=== PATIENT | female | born 1960 | race African-American/Black ===

== ENCOUNTER 2017-09-14 19:36 | Emergency (ER) | payer BC ==
[2017-09-14] MEDS ORDERED: ASPIRIN 81 MG CHEWABLE TABLETS PO ONE (20:04)
--- NOTE | 2017-09-14 20:04 | PDOC ---
Rapid Medical Evaluation Time Seen by Provider: 09/14/17 19:56 Medical Evaluation: Allergies Allergy/AdvReac Type Severity Reaction Status Date / Time No Known Allergies Allergy Verified 01/07/15 07:01 09/14/17 19:56 I have performed a brief in-person evaluation of this patient. The patient presents with a chief complaint of: swelling to b/l feet& ankles, SOB x 1 week, hx of DM/HTN, went to urgent care for SOB earlier, told to come here. pcp nicholas Pertinent physical exam findings: dyspnea, b/l swollen ankles I have ordered the following: cardiac workup, ekg The patient will proceed to the ED for further evaluation. Discharge Disposition - Diagnosis SOB (shortness of breath) - Referrals - Patient Instructions - Post Discharge Activity
[2017-09-14 20:07] VITALS: BP 166/90; PULSE 81; TEMP 99.4; BMI 52.6
[2017-09-14 20:36] LABS: HEMATOCRIT 43.9 % (32.4-45.2); HEMOGLOBIN 14.2 GM/dL (10.7-15.3); LYMPH % 19.1 % (8-40); MCH 28.4 pg (25.7-33.7); MCHC 32.4 g/dl (32.0-36.0); MEAN CELL VOLUME 87.6 fl (80-96); MEAN PLT VOLUME 10.1 fl (7.5-11.1); NEUT % 68.9 % (42.8-82.8); PLATELET COUNT 213 K/MM3 (134-434); RBC 5.02 M/mm3 (3.60-5.2); WHITE BLOOD COUNT 9.9 K/mm3 (4.0-10.0)
[2017-09-14 21:13] LABS: ALBUMIN 3.5 g/dl (3.4-5.0); ANION GAP 7 (8-16); BILIRUBIN,TOTAL 0.6 mg/dL (0.2-1.0); BLOOD UREA NITROGEN 10 mg/dL (7-18); CALCIUM 9.6 mg/dL (8.5-10.1); CHLORIDE 97 mmol/L (98-107); CO2 35 mmol/L (21-32); CREATININE 0.9 mg/dL (0.55-1.02); GLUCOSE,RANDOM 125 mg/dL (74-106); MAGNESIUM 2.2 mg/dL (1.8-2.4); POTASSIUM 3.6 mmol/L (3.5-5.1); SGOT/AST 14 U/L (15-37); SGPT/ALT 30 U/L (12-78); SODIUM 139 mmol/L (136-145); TOT PROT 7.8 g/dl (6.4-8.2)
[2017-09-14 21:16] LABS: ALK PHOS 84 U/L (45-117); N-TERMINAL BNP 55.64 pg/ml (5-125)
--- NOTE | 2017-09-14 22:58 | PDOC ---
History of Present Illness - General History Source: Patient Exam Limitations: No Limitations - History of Present Illness Initial Comments: 09/14/17 23:10 The patient is a 57 year old female with a significant PMH of HTN and diabetes who presents to the emergency department with shortness of breath beginning approximately 2 weeks ago. The patient reports significant dyspnea on exertion and conversational dyspnea with associated chest pressure and tightness. She reports being seen at Urgent Care earlier today, who recommended she come to the ED. The patient reports compliance with her medications. The patient also notes bilateral lower extremity swelling recently. She denies sick contacts or recent travel. The patient notes gaining significant weight over the past 6 months, which she states may be contributing to her symptoms. The patient denies headache and dizziness. Denies fever, chills, nausea, vomit, diarrhea and constipation. Denies dysuria, frequency, urgency and hematuria. Allergies: NKA Past surgical history: Abdominal hernia repair. Social history: Occasional alcohol use. No reported cigarette or drug use. PCP: Dr. Jameson <Edwin Saucedo - Last Filed: 09/14/17 23:45> - General History Source: Patient <Hasmukh Bush - Last Filed: 09/14/17 23:50> - General Chief Complaint: Shortness of Breath Stated Complaint: SOB/ HIGH BP Time Seen by Provider: 09/14/17 19:56 Past History <Edwin Saucedo - Last Filed: 09/14/17 23:45> - Past Medical History Asthma: Yes COPD: No Diabetes: Yes HTN: Yes - Surgical History Abdominal Surgery: Yes (ABD HERNIA) - Immunization History Immunization Up to Date: Yes - Suicide/Smoking/Psychosocial Hx Smoking History: Never smoked Have you smoked in the past 12 months: No Information on smoking cessation initiated: No Hx Alcohol Use: No Drug/Substance Use Hx: No Substance Use Type: None Hx Substance Use Treatment: No <Hasmukh Bush - Last Filed: 09/14/17 23:50> - Past Medical History Allergies/Adverse Reactions: Allergies Allergy/AdvReac Type Severity Reaction Status Date / Time No Known Allergies Allergy Verified 09/14/17 20:00 Home Medications: Ambulatory Orders Chlorthalidone 50 mg PO DAILY 01/04/15 Metformin HCl [Metformin HCl ER] 500 mg PO BID 01/04/15 Verapamil HCl 180 mg PO BID 01/04/15 Oxycodone HCl/Acetaminophen [Percocet 5/325 -] 1 - 2 tab PO Q6H #20 tab Chlorthalidone 50 mg PO BID #30 tablet 09/14/17 Review of Systems - Review of Systems Able to Perform ROS?: Yes Comments:: 09/14/17 23:10 CONSTITUTIONAL: Absent: fever, chills, diaphoresis, generalized weakness, malaise, loss of appetite HEENT: Absent: rhinorrhea, nasal congestion, throat pain, throat swelling, difficulty swallowing, mouth swelling, ear pain, eye pain, visual Changes CARDIOVASCULAR: Absent: chest pain, syncope, palpitations, irregular heart rate, lightheadedness , peripheral edema RESPIRATORY: (+) Shortness of breath with associated chest pressure. (+) Conversational and exertional dyspnea. Absent: cough, orthopnea, wheezing, stridor, hemoptysis GASTROINTESTINAL: Absent: abdominal pain, abdominal distension, nausea, vomiting, diarrhea, constipation, melena, hematochezia GENITOURINARY: Absent: dysuria, frequency, urgency, hesitancy, hematuria, flank pain, genital pain MUSCULOSKELETAL: (+) Bilateral lower extremity swelling. Absent: myalgia, arthralgia, joint swelling SKIN: Absent: rash, itching, pallor HEMATOLOGIC/IMMUNOLOGIC: Absent: easy bleeding, easy bruising, lymphadenopathy, frequent infections ENDOCRINE: Absent: unexplained weight gain, unexplained weight loss, heat intolerance, cold intolerance NEUROLOGIC: Absent: headache, focal weakness or paresthesias, dizziness, unsteady gait, seizure, mental status changes, bladder or bowel incontinence PSYCHIATRIC: Absent: anxiety, depression, suicidal or homicidal ideation, hallucinations. <Edwin Saucedo - Last Filed: 09/14/17 23:45> *Physical Exam - Vital Signs Last Vital Signs Temp Pulse Resp BP Pulse Ox 99.4 F 81 18 166/90 97 09/14/17 20:00 09/14/17 20:00 09/14/17 20:00 09/14/17 20:00 09/14/17 20:00 - Physical Exam Comments: 09/14/17 23:10 GENERAL: (+) Morbidly obese. Well developed, well nourished. Awake and alert. No acute distress. HEENT: Normocephalic, atraumatic. PERRLA, EOMI. No conjunctival pallor. Sclera are non- icteric. Moist mucous membranes. Oropharynx is clear. NECK: Supple. Full ROM. No JVD. Carotid pulses 2+ and symmetric, without bruits. No thyromegaly. No lymphadenopathy. CARDIOVASCULAR: Regular rate and rhythm. No murmurs, rubs, or gallops. Distal pulses are 2+ and symmetric. PULMONARY: (+) Decreased breath sounds. No evidence of respiratory distress. Lungs clear to auscultation bilaterally. No wheezing, rales or rhonchi. ABDOMINAL: Soft. Non-tender. Non-distended. No rebound or guarding. No organomegaly. Normoactive bowel sounds. MUSCULOSKELETAL Normal range of motion at all joints. No bony deformities or tenderness. No CVA tenderness. EXTREMITIES: (+) Non pitting edema in lower extremities. No cyanosis. No clubbing. No edema. No calf tenderness. SKIN: Warm and dry. Normal capillary refill. No rashes. No jaundice. NEUROLOGICAL: Alert, awake, appropriate. Cranial nerves 2-12 intact. No deficits to light touch and temperature in face, upper extremities and lower extremities. No motor deficits in the in face, upper extremities and lower extremities. Normoreflexic in the upper and lower extremities. Normal speech. Toes are downgoing bilaterally. Gait is normal without ataxia. PSYCHIATRIC: Cooperative. Good eye contact. Appropriate mood and affect. <Edwin Saucedo - Last Filed: 09/14/17 23:45> - Vital Signs Last Vital Signs Temp Pulse Resp BP Pulse Ox 99.4 F 81 18 166/90 97 09/14/17 20:00 09/14/17 20:00 09/14/17 20:00 09/14/17 20:00 09/14/17 20:00 <Hasmukh Bush - Last Filed: 09/14/17 23:50> Heart Score/ECG Review #1 09/14/17 23:47 Vent rate 77 bpm Normal sinus rhythm Possible left atrial enlargement Prolonged QT Abnormal ECG When compared with ECh of 22-DEC-2014 20:34, Incomplete right bundle branch block is no longer present Minimal criteria for anterior infarct are no longer present <Edwin Saucedo - Last Filed: 09/14/17 23:45> ED Treatment Course - LABORATORY CBC & Chemistry Diagram: 09/14/17 20:20 09/14/17 20:20 - ADDITIONAL ORDERS Additional order review: Laboratory Results 09/14/17 20:20 Sodium 139 Potassium 3.6 Chloride 97 L Carbon Dioxide 35 H Anion Gap 7 L BUN 10 Creatinine 0.9 Creat Clearance w eGFR > 60 Random Glucose 125 H Calcium 9.6 Magnesium 2.2 Total Bilirubin 0.6 D AST 14 L ALT 30 Alkaline Phosphatase 84 Creatine Kinase 80 Troponin I < 0.02 B-Natriuretic Peptide 55.64 Total Protein 7.8 Albumin 3.5 09/14/17 20:20 RBC 5.02 D MCV 87.6 MCHC 32.4 RDW 16.0 H MPV 10.1 Neutrophils % 68.9 Lymphocytes % 19.1 D Monocytes % 8.0 Eosinophils % 3.0 Basophils % 1.0 D - Medications Given in the ED: ED Medications Discontinued Medications Generic Name Dose Route Start Last Admin Trade Name Freq PRN Reason Stop Dose Admin Aspirin 162 mg 09/14/17 20:04 09/14/17 20:33 Asa - PO 09/14/17 20:05 162 mg ONCE ONE Administration <Edwin Saucedo - Last Filed: 09/14/17 23:45> - LABORATORY CBC & Chemistry Diagram: 09/14/17 20:20 09/14/17 20:20 - ADDITIONAL ORDERS Additional order review: Laboratory Results 09/14/17 20:20 Sodium 139 Potassium 3.6 Chloride 97 L Carbon Dioxide 35 H Anion Gap 7 L BUN 10 Creatinine 0.9 Creat Clearance w eGFR > 60 Random Glucose 125 H Calcium 9.6 Magnesium 2.2 Total Bilirubin 0.6 D AST 14 L ALT 30 Alkaline Phosphatase 84 Creatine Kinase 80 Troponin I < 0.02 B-Natriuretic Peptide 55.64 Total Protein 7.8 Albumin 3.5 09/14/17 20:20 RBC 5.02 D MCV 87.6 MCHC 32.4 RDW 16.0 H MPV 10.1 Neutrophils % 68.9 Lymphocytes % 19.1 D Monocytes % 8.0 Eosinophils % 3.0 Basophils % 1.0 D - Medications Given in the ED: ED Medications Discontinued Medications Generic Name Dose Route Start Last Admin Trade Name Freq PRN Reason Stop Dose Admin Aspirin 162 mg 09/14/17 20:04 09/14/17 20:33 Asa - PO 09/14/17 20:05 162 mg ONCE ONE Administration <Hasmukh Bush - Last Filed: 09/14/17 23:50> Medical Decision Making - Medical Decision Making 09/14/17 23:25 Dr. Bush: The scribe's documentation has been prepared under my direction and personally reviewed by me in its entirery. I confirm that the note above accurately reflects all work, treatment, procedures, and medical decision making performed by me. Pt labs are stable. Pt advised to follow up with her pcp to discuss her medications. Pt to continue her usual medications until she sees her pcp. <Hasmukh Bush - Last Filed: 09/14/17 23:50> *DC/Admit/Observation/Transfer - Attestations Scribe Attestion: 09/14/17 23:10 Documentation prepared by Edwin Saucedo, acting as medical record specialist for Hasmukh Bush DO. <Edwin Saucedo - Last Filed: 09/14/17 23:45> - Discharge Dispostion Admit: No <Hasmukh Bush - Last Filed: 09/14/17 23:50> Diagnosis at time of Disposition: SOB (shortness of breath) High blood pressure Qualifiers: Hypertension type: unspecified Qualified Code(s): I10 - Essential (primary) hypertension - Discharge Dispostion Disposition: HOME Condition at time of disposition: Stable - Prescriptions Prescriptions: Chlorthalidone 50 mg PO BID #30 tablet - Referrals Referrals: Radha Guzman MD [Primary Care Provider] - Link Bryant MD [Staff Physician] - - Patient Instructions Printed Discharge Instructions: High Blood Pressure, DI for Shortness of Breath Additional Instructions: Please follow up with your doctor and review your medications with her. Avoid excess sodium. return for any problems. - Post Discharge Activity Forms/Work/School Notes: Back to Work
[2017-09-14] MEDS ORDERED: CHLORTHALIDONE 50 MG TABLET PO STA (23:21)
--- NOTE | 2017-09-15 08:03 | EKG ---
Test Reason : Blood Pressure : / mmHG Vent. Rate : 077 BPM Atrial Rate : 077 BPM P-R Int : 180 ms QRS Dur : 102 ms QT Int : 428 ms P-R-T Axes : 071 038 049 degrees QTc Int : 484 ms NORMAL SINUS RHYTHM POSSIBLE LEFT ATRIAL ENLARGEMENT PROLONGED QT ABNORMAL ECG WHEN COMPARED WITH ECG OF 22-DEC-2014 20:34, INCOMPLETE RIGHT BUNDLE BRANCH BLOCK IS NO LONGER PRESENT MINIMAL CRITERIA FOR ANTERIOR INFARCT ARE NO LONGER PRESENT Confirmed by JILLIAN FERRELL MD ([id number]) on 09/15/2017 8:03:29 AM Referred By: Confirmed By:JILLIAN FERRELL MD
== END 2017-09-15 00:53 | disposition home or self-care (01) ==
LOC: JER 19:36
DX: I10 Essential (primary) hypertension (principal); R06.09 Other forms of dyspnea; E11.9 Type 2 diabetes mellitus without complications; Z79.84 Long term (current) use of oral hypoglycemic drugs; J45.909 Unspecified asthma, uncomplicated
CPT/HCPCS: 36415; 71046-TC; 80053; 82550; 83735; 83880; 84484; 85025; 93005; 93010; 99282-25

== ENCOUNTER 2018-06-13 11:20 | Inpatient (IN) | payer BC ==
--- NOTE | 2018-06-13 12:21 | PDOC ---
History of Present Illness - General Chief Complaint: Respiratory Stated Complaint: ASTHMA Time Seen by Provider: 06/13/18 11:55 History Source: Patient Exam Limitations: No Limitations - History of Present Illness Initial Comments: 06/13/18 12:16 Pt is a 57yo f with PMH of asthma, HTN, DM presenting to ED with SOB upon exertion. Pt says she cannot take a few steps without feeling short of breath. She thinks it is the weather changes that are affecting her asthma. Pt has a nebulizer at home but has been unable to use it due to the "tubing being messed up" She ran out of her inhaler medication. Pt does not feel short of breath when she is at rest. She did admit to having a cold recently. Admits to headache. Denies chest pain, back pain, neck pain, abdominal pain, n/v/d. PCP: Zain PMH: see hpi Meds: ramipril, metformin PSH: Social: quit smoking many years ago Allergies: nkda Past History - Past Medical History Allergies/Adverse Reactions: Allergies Allergy/AdvReac Type Severity Reaction Status Date / Time No Known Allergies Allergy Verified 06/13/18 11:47 Home Medications: Ambulatory Orders Chlorthalidone 50 mg PO DAILY 01/04/15 Metformin HCl [Metformin HCl ER] 500 mg PO BID 01/04/15 Oxycodone HCl/Acetaminophen [Oxycodone-Acetaminophen 10-325] 1 each PO TID PRN MDD 3 06/13/18 Verapamil HCl [Verapamil ER] 180 mg PO BID 06/13/18 Asthma: Yes COPD: No Diabetes: Yes HTN: Yes - Surgical History Abdominal Surgery: Yes (ABD HERNIA) - Immunization History Immunization Up to Date: Yes - Suicide/Smoking/Psychosocial Hx Smoking History: Former smoker Have you smoked in the past 12 months: No Information on smoking cessation initiated: No Hx Alcohol Use: No Drug/Substance Use Hx: No Substance Use Type: None Hx Substance Use Treatment: No Review of Systems - Review of Systems Constitutional: No: Chills, Fever HEENTM: No: Recent change in vision, Double Vision Respiratory: Yes: SOB with Exertion, Wheezing. No: Cough, SOB at Rest, Productive cough Cardiac (ROS): No: Chest Pain, Lightheadedness, Palpitations, Syncope ABD/GI: No: Constipated, Diarrhea, Nausea, Vomiting : No: Symptoms Reported Musculoskeletal: No: Symptoms Reported Neurological: Yes: Headache. No: Numbness, Paresthesia, Tingling, Tremors *Physical Exam - Vital Signs Last Vital Signs Temp Pulse Resp BP Pulse Ox 99.7 F H 90 24 H 158/86 84 L 06/13/18 11:54 06/13/18 11:54 06/13/18 11:54 06/13/18 11:54 06/13/18 11:54 - Physical Exam General Appearance: Yes: Appropriately Dressed, Mild Distress, Obese HEENT: positive: EOMI, GISELLE, Pharynx Normal Neck: positive: Trachea midline, Supple. negative: Carotid bruit, Lymphadenopathy (R), Lymphadenopathy (L) Respiratory/Chest: positive: Decreased Breath Sounds (unable to properly auscultate due to body habitus) Cardiovascular: positive: Other (unable to properly auscultate due to body habitus) Vascular Pulses: Carotid (R): 2+, Carotid (L): 2+, Dorsalis-Pedis (R): 2+, Doralis-Pedis (L): 2+ Gastrointestinal/Abdominal: positive: Soft. negative: Guarding, Rebound, Tenderness Musculoskeletal: negative: CVA Tenderness Extremity: positive: Normal Capillary Refill. 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 Vitals: hypoxic on RA at 88%, tachypneic. PE: decreased breath and heart sounds due to body habitus ACS, PE, asthma exacerbation, chf, copd, pleural effusion Pt does not appear to be volume overloaded. Will order cbc, cmp, trop, vbg, ekg, cxr. Started pt on solumedrol and duoneb. 06/13/18 15:06 Pt feeling better. complaining of headache. Will give Tylenol. Pt saturates 88-92% RA. tachypneic in the low 20s. Will likely need admission CTA ordered to r/o PE. Negative for pe. Pt admitted for hypoxia. *DC/Admit/Observation/Transfer Diagnosis at time of Disposition: SOB (shortness of breath), Hypoxia - Discharge Dispostion Condition at time of disposition: Stable Decision to Admit order: Yes - Referrals - Patient Instructions - Post Discharge Activity
[2018-06-13] MEDS ORDERED: ALBUTEROL SO4 2.5/IPRATROPIUM 0.5 INH SOL 3 ML VIAL.NEB. NEB ONE ×2 (12:39→13:39)
[2018-06-13] MEDS ORDERED: methylPREDNISolone NA SUCC 125 MG/2 ML VIAL IVPB ONE (12:40)
[2018-06-13 12:48] LABS: BASO % 1.2 % (0-2.0); EOS % 1.6 % (0-4.5); HEMATOCRIT 41.4 % (32.4-45.2); LYMPH % 20.4 % (8-40); MCH 27.7 pg (25.7-33.7); MCHC 31.3 g/dl (32.0-36.0); MEAN CELL VOLUME 88.3 fl (80-96); MONO % 7.5 % (3.8-10.2); NEUT % 69.3 % (42.8-82.8); PLATELET COUNT 225 K/MM3 (134-434); RBC 4.69 M/mm3 (3.60-5.2); RDW 16.9 % (11.6-15.6); WHITE BLOOD COUNT 9.4 K/mm3 (4.0-10.0)
[2018-06-13] MEDS ORDERED: methylPREDNISolone NA SUCC 40 MG/1 ML VIAL ONE ×2 (12:52→17:54)
[2018-06-13 13:17] LABS: ALK PHOS 71 U/L (45-117); ANION GAP 5 MMOL/L (8-16); BILIRUBIN,TOTAL 0.5 mg/dL (0.2-1); BLOOD UREA NITROGEN 8 mg/dL (7-18); CALCIUM 8.6 mg/dL (8.5-10.1); CHLORIDE 98 mmol/L (98-107); CO2 36 mmol/L (21-32); CREATININE 0.6 mg/dL (0.55-1.3); GLUCOSE,RANDOM 125 mg/dL (74-106); POTASSIUM 4.1 mmol/L (3.5-5.1); SGOT/AST 12 U/L (15-37); SGPT/ALT 19 U/L (13-61); SODIUM 140 mmol/L (136-145); TOT PROT 6.6 g/dl (6.4-8.2)
[2018-06-13] MEDS ORDERED: methylPREDNISolone NA SUCC 40 MG/1 ML VIAL IVPUSH ONE (13:24)
[2018-06-13 13:27] LABS: VENOUS PH 7.4 (7.32-7.42); VENOUS PO2 47.6 mmHg (28-48)
[2018-06-13 13:28] LABS: VENOUS PC02 64.6 mmHg (38-52)
[2018-06-13] MEDS ORDERED: methylPREDNISolone NA SUCC 125 MG/2 ML VIAL ONE (13:33)
[2018-06-13] MEDS: ALBUTEROL SO4 2.5/IPRATROPIUM 0.5 INH SOL 3 ML VIAL.NEB. NEB SCH ×3 (13:45→14:01)
--- NOTE | 2018-06-13 14:14 | PDOC ---
Attending Attestation - Resident Resident Name: Ruma Durant - ED Attending Attestation I have performed the following: I have examined & evaluated the patient, The case was reviewed & discussed with the resident, I agree w/resident's findings & plan, Exceptions are as noted - HPI HPI: 06/13/18 14:05 The patient is a 57 year old female, with a past medical history of asthma, diabetes, and HTN, who presents to the emergency department with 7 days of SOB and dyspnea on exertion. She recently had a URI which has since resolved. Denies F/C currently. Patient describes her symptoms as similar to her usual asthma flares. She has not used her rescue inhaler or nebulizer for her symptoms because she ran out of her medications. She denies recent chest pain or palpitations. She denies recent fevers, chills, headache or dizziness. She denies recent nausea, vomit, diarrhea or constipation. She denies recent dysuria, frequency, urgency or hematuria. Allergies: NKDA Past surgical history: Abdominal hernia repair. Social history: Occasional alcohol. Nonsmoker. Denies recreational drug use. Primary Care Physician: Dr. Jameson - Physicial Exam PE: 06/13/18 14:06 GENERAL: Awake, alert, and fully oriented, in no acute distress. HEAD: No signs of trauma EYES: PERRLA, EOMI, sclera anicteric, conjunctiva clear ENT: Auricles normal inspection, hearing grossly normal, nares patent, oropharynx clear without exudates. Moist mucosa NECK: Nontender, no stepoffs, Normal ROM, supple, no lymphadenopathy, JVD, or masses LUNGS: + wheezing, faint breath sounds due to body habitus HEART: Regular rate and rhythm, normal S1 and S2, no murmurs, rubs or gallops ABDOMEN: Soft, nontender, normoactive bowel sounds. No guarding, no rebound. No masses EXTREMITIES: Normal range of motion, no edema. No clubbing or cyanosis. No cords, erythema, or tenderness NEUROLOGICAL: Cranial nerves II through XII intact. 5/5 strength and sensation in all extremities, Normal speech, normal gait, normal cerebellar function SKIN: Warm, Dry, normal turgor, no rashes or lesions noted. - Medical Decision Making 06/13/18 14:07 57 F with likely asthma flare. Temp 99.7, possible viral URI/flu. - Labs - CXR - Flu swab - Nebs, steroids - Reassess 06/13/18 15:37 CXR clear Pt reassessed after 4 back to back nebs, continues to feel SOB. Ambulatory O2 sat 88 after treatment Will continue nebs for asthma flare Will also r/o PE with CTA Pt admitted <Junior Celeste - Last Filed: 06/13/18 15:39> Attestations - Attestations 06/13/18 14:57 Documentation prepared by Vin Juarez, acting as medical reception for Junior Celeste MD. <Vin Juarez - Last Filed: 06/13/18 14:57>
[2018-06-13] MEDS ORDERED: ACETAMINOPHEN 500 MG TABLET (FP) PO ONE (15:06)
[2018-06-13] MEDS ORDERED: ACETAMINOPHEN 325 MG TABLET (FP) ONE (15:49)
[2018-06-13] MEDS ORDERED: ACETAMINOPHEN 325 MG TABLET (FP) PO PRN ×2 (16:06→22:29)
--- NOTE | 2018-06-13 16:21 | HP ---
CHIEF COMPLAINT: shortness of breath. PCP:Dr. Pittman HISTORY OF PRESENT ILLNESS: 57 yo F wth PMhx of asthma, HTN, and NIDDM presents for a 2 week history of worsening shortness of breath. She states that when the weather changed a few weeks ago she started with some mild shortness of breath. She has nebulizer at home but she says something is wrong with the tubing. She also endorses URI symptoms but non productive cough. She becomes short of breath with minimal exertions. She mentions that usually she only uses inhalers once a month. Never been hospitalized for this type of issue. Denies CP,KERNS, Abdominal pain, nausea , vomiting, fever or chills. ER course was notable for: (1)EKG-NSR, with no t or st wave abnormalities. (2)CXR- shows LLL opacity. (3)CTA- pending Recent Travel: no PAST MEDICAL HISTORY: HTN, NIDDM, Asthma PAST SURGICAL HISTORY: Cholecystectomy, hernia repair, , tonsilectomy Social History: Smoking:never Alcohol:rare Drugs: marijuana Family History: Mother and Father (DM2), brother in 50's No Known Allergies Allergy (Verified 06/13/18 11:47) HOME MEDICATIONS: Home Medications Medication Instructions Recorded Chlorthalidone 50 mg PO DAILY 01/04/15 Metformin HCl [Metformin HCl ER] 500 mg PO BID 01/04/15 Verapamil HCl 180 mg PO BID 01/04/15 REVIEW OF SYSTEMS CONSTITUTIONAL: Absent: fever, chills, diaphoresis, generalized weakness, malaise, loss of appetite, weight change HEENT: Absent: rhinorrhea, nasal congestion, throat pain, throat swelling, difficulty swallowing, mouth swelling, ear pain, eye pain, visual changes CARDIOVASCULAR: Absent: chest pain, syncope, palpitations, irregular heart rate, lightheadedness , peripheral edema RESPIRATORY: shortness of breath, dyspnea with exertion Absent: cough, , orthopnea, wheezing, stridor, hemoptysis GASTROINTESTINAL: Absent: abdominal pain, abdominal distension, nausea, vomiting, diarrhea, constipation, melena, hematochezia GENITOURINARY: Absent: dysuria, frequency, urgency, hesitancy, hematuria, flank pain, genital pain MUSCULOSKELETAL: Absent: myalgia, arthralgia, joint swelling, back pain, neck pain SKIN: Absent: rash, itching, pallor HEMATOLOGIC/IMMUNOLOGIC: Absent: easy bleeding, easy bruising, lymphadenopathy, frequent infections ENDOCRINE: Absent: unexplained weight gain, unexplained weight loss, heat intolerance, cold intolerance NEUROLOGIC: Absent: headache, focal weakness or paresthesias, dizziness, unsteady gait, seizure, mental status changes, bladder or bowel incontinence PSYCHIATRIC: Absent: anxiety, depression, suicidal or homicidal ideation, hallucinations. PHYSICAL EXAMINATION Vital Signs - 24 hr 06/13/18 06/13/18 06/13/18 11:54 12:46 13:56 Temperature 99.7 F H Pulse Rate 90 Pulse Rate [ 84 Apical] Respiratory 24 H 14 Rate Blood Pressure 158/86 Blood Pressure 132/69 [Right Arm] O2 Sat by Pulse 84 L 95 93 L Oximetry (%) GENERAL: AAOx3, mild distress. HEAD: NCAT EYES: PERRLA, EOMI, sclera anicteric, conjunctiva clear. No lid lag. EARS, NOSE, THROAT: Moist mucous membranes. NECK:Supple without lymphadenopathy, JVD, or masses. LUNGS: Poor air entry.diminished BS bilaterally > bases. No accessory muscle use. HEART: RRR,, normal S1 and S2 , no m/g/r ABDOMEN: Soft, obese, NTND, NABS, no guarding, no rebound, no masses. No hepatomegaly or splenomegaly. MUSCULOSKELETAL: No CVA tenderness. paraspinal tenderness UPPER EXTREMITIES: 2+ pulses, warm, well-perfused. No cyanosis. No clubbing. No peripheral edema. LOWER EXTREMITIES: 2+ pulses, warm, well-perfused. No calf tenderness. 1+ edema. NEUROLOGICAL: Cranial nerves II-XII intact. Normal speech.gait not observed. PSYCHIATRIC: Cooperative. Good eye contact. Appropriate mood and affect. SKIN: Warm, dry, normal turgor, no rashes or lesions noted Laboratory Results - last 24 hr 06/13/18 06/13/18 06/13/18 12:40 12:40 12:40 WBC 9.4 RBC 4.69 Hgb 13.0 Hct 41.4 MCV 88.3 MCH 27.7 MCHC 31.3 L RDW 16.9 H Plt Count 225 MPV 10.0 Absolute Neuts (auto) 6.5 Neutrophils % 69.3 Lymphocytes % 20.4 Monocytes % 7.5 Eosinophils % 1.6 Basophils % 1.2 Nucleated RBC % 0 VBG pH POC VBG pCO2 POC VBG pO2 Mixed VBG HCO3 Sodium 140 Potassium 4.1 Chloride 98 Carbon Dioxide 36 H Anion Gap 5 L BUN 8 Creatinine 0.6 Creat Clearance w eGFR > 60 Random Glucose 125 H Calcium 8.6 Total Bilirubin 0.5 AST 12 L ALT 19 Alkaline Phosphatase 71 Troponin I < 0.02 Total Protein 6.6 Albumin 3.0 L Serum , Qual Negative 06/13/18 13:10 WBC RBC Hgb Hct MCV MCH MCHC RDW Plt Count MPV Absolute Neuts (auto) Neutrophils % Lymphocytes % Monocytes % Eosinophils % Basophils % Nucleated RBC % VBG pH 7.40 POC VBG pCO2 64.6 H* POC VBG pO2 47.6 Mixed VBG HCO3 39.2 H Sodium Potassium Chloride Carbon Dioxide Anion Gap BUN Creatinine Creat Clearance w eGFR Random Glucose Calcium Total Bilirubin AST ALT Alkaline Phosphatase Troponin I Total Protein Albumin Serum , Qual ASSESSMENT/PLAN: 57 yo F with PMHx of asthma, NIDDM, and HTN presents with one week history of worsening SOB and placed on observation for acute hypoxia. Problem List - Problem (1) SOB (shortness of breath) Assessment/Plan: Most likely secondary to acute bronchitis. * CTA chest pending r/o PE * Albuterol INH QID * Solumedrol 40mg IV Q8H * peak flow measurements. * ABG in AM * Incentive spirometer. * supplemental O2 PRN maintain SpO2 >90% * Will give Azithromycin based on CXR finding. (2) HTN (hypertension) Assessment/Plan: Continue with home meds. * Chlorthalidone (Hygroton -) 50 mg PO DAILY * Verapamil HCl (Calan Sr -) 180 mg PO BID (3) Diabetes type 2, controlled Assessment/Plan: Metformin held while admitted to hospital. * ADA diet * BGM ACHS * ISS with novolog ACHS Visit type - Emergency Visit Emergency Visit: Yes ED Registration Date: 06/13/18 Care time: The patient presented to the Emergency Department on the above date and was hospitalized for further evaluation of their emergent condition. - New Patient This patient is new to me today: Yes Date on this admission: 06/13/18 - Critical Care Critical Care patient: No
--- NOTE | 2018-06-13 16:49 | PN ---
Teaching Attending Note Name of Resident: Max Erickson ATTENDING PHYSICIAN STATEMENT I saw and evaluated the patient. I reviewed the resident's note and discussed the case with the resident. I agree with the resident's findings and plan as documented with exceptions below. SUBJECTIVE: 57 yof with PMHx of Asthma since age of 31, mobid obesity, NIDDM, HTN, cannabis use (last 1 month ago), Chronic back pain with opioid dependence was in her USOH till about 3 weeks ago when had URI like illness, symptoms progressively improved. Has been having progressive shortness of breath with activity since then. Yesterday was on a bus, when felt worsening breathing, with ongoing episodes prompting her to come to the ED. s/p solumedrol and nebs in ED, Currently feels better. 12 point ROS done, positive for cough with clear sputum last 2 weeks, also leg swelling since yesterday. Uses 5 pillows at night, no recent increase Also notes issues with her nebulizer tubing for last 2 weeks,unable to use the same Reports had extensive testing with her PCP in 12/2017, with echo/stress test/ carotid duplex reportedly unremarkable. OBJECTIVE: Vital Signs Period Temp Pulse Resp BP Sys/Augustine Pulse Ox Last 24 Hr 99.7 F 84-90 14-24 132-158/69-86 84-95 Intake & Output 06/10/18 06/11/18 06/12/18 06/13/18 23:59 23:59 23:59 23:59 Weight 330 lb GENERAL: Awake, alert, and fully oriented, in no acute distress. HEAD: Normal with no signs of trauma. EYES: Pupils equal, round and reactive to light, extraocular movements intact, sclera anicteric, conjunctiva clear. No lid lag. EARS, NOSE, THROAT: Ears normal, nares patent, oropharynx clear without exudates. Moist mucous membranes. NECK: soft, supple, no JVD, exam limited by body habitus LUNGS: Breath sounds equal, clear to auscultation bilaterally. No wheezes, and no crackles. No accessory muscle use. Exam limited by body habitus HEART: S1S2 regular rate rhythm ABDOMEN: Soft, obese, NT, positive bowel sounds MUSCULOSKELETAL: Normal range of motion at all joints. No bony deformities or tenderness. No CVA tenderness. UPPER EXTREMITIES: 2+ pulses, warm, well-perfused. No cyanosis. No clubbing. No peripheral edema. LOWER EXTREMITIES: 2+ pulses, warm, well-perfused. No calf tenderness. trace pitting pedal edema symmetric NEUROLOGICAL: Facial symmetry, AAOX3, power 5/5, sensation intact and symmetric to light touch, non focal exam PSYCHIATRIC: Cooperative. Good eye contact. Appropriate mood and affect. SKIN: Warm, dry, normal turgor, no rashes or lesions noted, normal capillary refill. Home Medications Medication Instructions Recorded Chlorthalidone 50 mg PO DAILY 01/04/15 Metformin HCl [Metformin HCl ER] 500 mg PO BID 01/04/15 Oxycodone HCl/Acetaminophen 1 each PO TID PRN MDD 3 06/13/18 [Oxycodone-Acetaminophen 10-325] Verapamil HCl [Verapamil ER] 180 mg PO BID 06/13/18 Active Medications Acetaminophen (Tylenol -) 650 mg PO Q4H PRN PRN Reason: FEVER Albuterol Sulfate (Ventolin 0.083% Nebulizer Soln -) 1 amp NEB RQID [facility] Chlorthalidone (Hygroton -) 50 mg PO DAILY [facility] Heparin Sodium (Porcine) (Heparin -) 5,000 unit SQ BID [facility] Insulin Aspart (Novolog Vial Sliding Scale -) 1 vial SQ ACHS [facility]; Protocol Methylprednisolone Sodium Succinate (Solu-Medrol -) 40 mg IVPUSH Q8H-IV [facility] Verapamil HCl (Calan Sr -) 180 mg PO BID [facility] Laboratory Results - last 24 hr 06/13/18 06/13/18 06/13/18 12:40 12:40 12:40 WBC 9.4 RBC 4.69 Hgb 13.0 Hct 41.4 MCV 88.3 MCH 27.7 MCHC 31.3 L RDW 16.9 H Plt Count 225 MPV 10.0 Absolute Neuts (auto) 6.5 Neutrophils % 69.3 Lymphocytes % 20.4 Monocytes % 7.5 Eosinophils % 1.6 Basophils % 1.2 Nucleated RBC % 0 VBG pH POC VBG pCO2 POC VBG pO2 Mixed VBG HCO3 Sodium 140 Potassium 4.1 Chloride 98 Carbon Dioxide 36 H Anion Gap 5 L BUN 8 Creatinine 0.6 Creat Clearance w eGFR > 60 Random Glucose 125 H Calcium 8.6 Total Bilirubin 0.5 AST 12 L ALT 19 Alkaline Phosphatase 71 Troponin I < 0.02 Total Protein 6.6 Albumin 3.0 L Serum , Qual Negative 06/13/18 13:10 WBC RBC Hgb Hct MCV MCH MCHC RDW Plt Count MPV Absolute Neuts (auto) Neutrophils % Lymphocytes % Monocytes % Eosinophils % Basophils % Nucleated RBC % VBG pH 7.40 POC VBG pCO2 64.6 H* POC VBG pO2 47.6 Mixed VBG HCO3 39.2 H Sodium Potassium Chloride Carbon Dioxide Anion Gap BUN Creatinine Creat Clearance w eGFR Random Glucose Calcium Total Bilirubin AST ALT Alkaline Phosphatase Troponin I Total Protein Albumin Serum , Qual CXR - markedly limited exam due to body habitus, Left costophrenic angle blunted EKG - NSR, right axis deviation ASSESSMENT AND PLAN: 57 yof with PMhx of asthma, morbid obesity, HTN, NIDDM, chronic back pain with opioid dependence, admitted with dyspnea. -Dyspnea, suspect Acute bronchitis/Asthma exac in the setting of recent URI, r/ o PNA/PE (low suspicion), unlikely CHF -NIDDM -HTN -Morbid obesity -Suspect underlying MATILDA -Chronic back pain with opioid dependence Plan: Solumedrol 40 mg IV q8h, standing and prn nebs. Azithromycin. CTA chest. Hold off abx pending imaging Reports recent cardiac w/u including stress test/echo in 12/2017 with Hold metformin, ISS, diabetic diet. Continue verapamil/chlorthalidone. Home percocet (dose confirmed with pharmacy) Drug screen DVTPPX lovenox Dispo pending above imaging and clinical improvement Plan discussed with patient in detail, all questions answered. Total admit time 55 min.
[2018-06-13] MEDS ORDERED: INSULIN (NOVOLOG) ASPART 100 UNITS/ML 10ML VIAL ONE (16:54)
[2018-06-13] MEDS: INSULIN SLIDING SCALE (NOVOLOG) 1 VIAL SQ SCH ×2 (16:56→22:37)
[2018-06-13] MEDS ORDERED: PATIENT'S OWN MEDICATION (NON-FORMULARY) (Oxycodone Hcl/Acetaminophen [Oxycodone-Acetamino PO PRN ×2 (17:51→22:17)
[2018-06-13] MEDS ORDERED: AZITHROMYCIN IVPB 500 MG/250 ML BAG IVPB ONE (17:56)
[2018-06-13] MEDS: methylPREDNISolone NA SUCC 40 MG/1 ML VIAL IVPUSH SCH (18:11)
[2018-06-13] MEDS: AZITHROMYCIN IVPB 500 MG/250 ML BAG IVPB SCH (18:12)
[2018-06-13] MEDS: ALBUTEROL SO4 0.083% IH SOL 2.5 MG/3 ML VIAL.NEB. NEB SCH (20:50)
--- NOTE | 2018-06-13 21:20 | EKG ---
Test Reason : Blood Pressure : / mmHG Vent. Rate : 082 BPM Atrial Rate : 082 BPM P-R Int : 184 ms QRS Dur : 082 ms QT Int : 380 ms P-R-T Axes : 066 092 054 degrees QTc Int : 443 ms NORMAL SINUS RHYTHM BORDERLINE ECG WHEN COMPARED WITH ECG OF 14-SEP-2017 20:12, NO SIGNIFICANT CHANGE WAS FOUND Confirmed by CHRISTIANO SMITH MD ([id number]) on 06/13/2018 9:20:22 PM Referred By: Confirmed By:CHRISTIANO SMITH MD
[2018-06-13] MEDS ORDERED: HEPARIN NA (PORCINE) 5,000 UNITS/ML 1ML VIAL SQ SCH (22:00)
[2018-06-13] MEDS: VERAPAMIL HCL 180 MG E.R. TABLET (FP) PO SCH (22:37)
[2018-06-13] MEDS: oxyCODONE HCL 5 MG TABLET PO PRN (22:37)
[2018-06-14] MEDS: methylPREDNISolone NA SUCC 40 MG/1 ML VIAL IVPUSH SCH ×3 (04:11→17:36)
[2018-06-14] MEDS: INSULIN SLIDING SCALE (NOVOLOG) 1 VIAL SQ SCH ×4 (06:21→22:02)
[2018-06-14 06:39] LABS: ARTERIAL BLD GAS O2 SATURATION 89.4 % (90-98.9); ARTERIAL BLOOD GAS BASE EXCESS 9.3 meq/l (-2-2); ARTERIAL BLOOD GAS PCO2 57.6 mmHg (35-45); ARTERIAL BLOOD GAS PO2 57.6 mmHg (80-100); ARTERIAL BLOOD GAS pH 7.41 (7.35-7.45)
[2018-06-14 06:47] LABS: ALLENS TEST POSITIVE
[2018-06-14 07:21] LABS: BASO % 0.2 % (0-2.0); HEMATOCRIT 42.6 % (32.4-45.2); HEMOGLOBIN 12.9 GM/dL (10.7-15.3); LYMPH % 7.4 % (8-40); MCH 26.7 pg (25.7-33.7); MCHC 30.2 g/dl (32.0-36.0); MEAN CELL VOLUME 88.2 fl (80-96); MONO % 2.6 % (3.8-10.2); NEUT % 89.8 % (42.8-82.8); PLATELET COUNT 230 K/MM3 (134-434); RBC 4.82 M/mm3 (3.60-5.2); RDW 17.2 % (11.6-15.6)
[2018-06-14] MEDS: ALBUTEROL SO4 0.083% IH SOL 2.5 MG/3 ML VIAL.NEB. NEB SCH ×2 (08:07→11:31)
[2018-06-14 08:26] LABS: ALK PHOS 73 U/L (45-117); ANION GAP 5 MMOL/L (8-16); BILIRUBIN,TOTAL 0.5 mg/dL (0.2-1); BLOOD UREA NITROGEN 12 mg/dL (7-18); CALCIUM 9.3 mg/dL (8.5-10.1); CHLORIDE 96 mmol/L (98-107); CO2 36 mmol/L (21-32); CREATININE 0.8 mg/dL (0.55-1.3); GLUCOSE,RANDOM 193 mg/dL (74-106); MAGNESIUM 2.5 mg/dL (1.8-2.4); PHOSPHOROUS 2.8 mg/dL (2.5-4.9); POTASSIUM 4.3 mmol/L (3.5-5.1); SGOT/AST 11 U/L (15-37); SGPT/ALT 18 U/L (13-61); SODIUM 138 mmol/L (136-145); TOT PROT 6.8 g/dl (6.4-8.2)
[2018-06-14] MEDS: ENOXAPARIN NA (PORCINE) 40 MG/0.4 ML DISP.SYRIN SQ SCH (09:19)
[2018-06-14] MEDS: AZITHROMYCIN IVPB 500 MG/250 ML BAG IVPB SCH (09:23)
[2018-06-14] MEDS: VERAPAMIL HCL 180 MG E.R. TABLET (FP) PO SCH ×2 (09:34→22:02)
[2018-06-14] MEDS: CHLORTHALIDONE 25 MG TABLET PO SCH (09:43)
[2018-06-14] MEDS ORDERED: CHLORTHALIDONE 50 MG TABLET PO SCH (10:00)
[2018-06-14] MEDS ORDERED: INSULIN (NOVOLOG) ASPART 100 UNITS/ML 10ML VIAL ONE (11:17)
--- NOTE | 2018-06-14 13:52 | PN ---
Teaching Attending Note Name of Resident: Margarito Rocha ATTENDING PHYSICIAN STATEMENT I saw and evaluated the patient. I reviewed the resident's note and discussed the case with the resident. I agree with the resident's findings and plan as documented with exceptions below. SUBJECTIVE: Patient seen and examined, still dyspneic with minimal activity, feels a bit worse today than yesterday. OBJECTIVE: Vital Signs Period Temp Pulse Resp BP Sys/Augustine Pulse Ox Last 24 Hr 97.8 F-98.6 F 71-98 14-20 125-160/69-97 93-97 Intake & Output 06/11/18 06/12/18 06/13/18 06/14/18 23:59 23:59 23:59 23:59 Intake Total 400 200 Balance 400 200 Weight 332 lb 6 oz General: sitting in bed, mild use of accessory muscles of respiration Chest: positive air entry, no rales or wheezing appreciated, exam limited by body habitus Abdomen:soft, obese, NT Extremities: trace pitting pedal edema Home Medications Medication Instructions Recorded Chlorthalidone 50 mg PO DAILY 01/04/15 Metformin HCl [Metformin HCl ER] 500 mg PO BID 01/04/15 Oxycodone HCl/Acetaminophen 1 each PO TID PRN MDD 3 06/13/18 [Oxycodone-Acetaminophen 10-325] Verapamil HCl [Verapamil ER] 180 mg PO BID 06/13/18 Active Medications Acetaminophen (Tylenol -) 650 mg PO Q4H PRN PRN Reason: FEVER Acetaminophen (Tylenol -) 325 mg PO Q8H PRN PRN Reason: PAIN LEVEL 6-10 Albuterol Sulfate (Ventolin 0.083% Nebulizer Soln -) 1 amp NEB RQID [facility] Last Admin: 06/14/18 11:31 Dose: 1 amp Chlorthalidone (Hygroton -) 50 mg PO DAILY [facility] Last Admin: 06/14/18 09:43 Dose: 50 mg Enoxaparin Sodium (Lovenox -) 40 mg SQ DAILY [facility] Last Admin: 06/14/18 09:19 Dose: 40 mg Azithromycin (Zithromax 500mg Ivpb (Pre-Docked)) 500 mg in 250 mls @ 250 mls/ hr IVPB DAILY [facility] Last Admin: 06/14/18 09:23 Dose: 250 mls/hr Insulin Aspart (Novolog Vial Sliding Scale -) 1 vial SQ ACHS [facility]; Protocol Last Admin: 06/14/18 11:19 Dose: 10 units Methylprednisolone Sodium Succinate (Solu-Medrol -) 40 mg IVPUSH Q8H [facility] Oxycodone HCl (Roxicodone -) 10 mg PO Q8H PRN PRN Reason: PAIN LEVEL 6-10 Last Admin: 06/13/18 22:37 Dose: 10 mg Verapamil HCl (Calan Sr -) 180 mg PO BID [facility] Last Admin: 06/14/18 09:34 Dose: 180 mg Laboratory Results - last 24 hr 06/13/18 06/13/18 06/14/18 16:52 22:35 06:00 WBC RBC Hgb Hct MCV MCH MCHC RDW Plt Count MPV Absolute Neuts (auto) Neutrophils % Lymphocytes % Monocytes % Eosinophils % Basophils % Nucleated RBC % Anticoagulation Therapy No Result Required. Puncture Site Right radial ABG pH 7.41 ABG pCO2 at Pt Temp 57.6 H ABG pO2 at Pt Temp 57.6 L ABG HCO3 35.9 H ABG O2 Sat (Measured) 89.4 L ABG O2 Content 18.0 ABG Base Excess 9.3 H Roberto Test Positive O2 Delivery Device Room air Oxygen Flow Rate No Vent Mode No Result Required. Vent Rate No Result Required. Mechanical Rate No Result Required. Pressure Support Vent No Result Required. Sodium Potassium Chloride Carbon Dioxide Anion Gap BUN Creatinine Creat Clearance w eGFR POC Glucometer [phone] Random Glucose Calcium Phosphorus Magnesium Total Bilirubin AST ALT Alkaline Phosphatase Total Protein Albumin 06/14/18 06/14/18 06/14/18 06:20 06:30 06:30 WBC 15.0 H RBC 4.82 Hgb 12.9 Hct 42.6 MCV 88.2 MCH 26.7 MCHC 30.2 L RDW 17.2 H Plt Count 230 MPV 11.0 Absolute Neuts (auto) 13.5 H Neutrophils % 89.8 H D Lymphocytes % 7.4 L D Monocytes % 2.6 L Eosinophils % 0.0 D Basophils % 0.2 Nucleated RBC % 0 Anticoagulation Therapy Puncture Site ABG pH ABG pCO2 at Pt Temp ABG pO2 at Pt Temp ABG HCO3 ABG O2 Sat (Measured) ABG O2 Content ABG Base Excess Roberto Test O2 Delivery Device Oxygen Flow Rate Vent Mode Vent Rate Mechanical Rate Pressure Support Vent Sodium 138 Potassium 4.3 Chloride 96 L Carbon Dioxide 36 H Anion Gap 5 L BUN 12 Creatinine 0.8 Creat Clearance w eGFR > 60 POC Glucometer 190 Random Glucose 193 H Calcium 9.3 Phosphorus 2.8 Magnesium 2.5 H Total Bilirubin 0.5 AST 11 L ALT 18 Alkaline Phosphatase 73 Total Protein 6.8 Albumin 3.0 L 06/14/18 11:14 WBC RBC Hgb Hct MCV MCH MCHC RDW Plt Count MPV Absolute Neuts (auto) Neutrophils % Lymphocytes % Monocytes % Eosinophils % Basophils % Nucleated RBC % Anticoagulation Therapy Puncture Site ABG pH ABG pCO2 at Pt Temp ABG pO2 at Pt Temp ABG HCO3 ABG O2 Sat (Measured) ABG O2 Content ABG Base Excess Roberto Test O2 Delivery Device Oxygen Flow Rate Vent Mode Vent Rate Mechanical Rate Pressure Support Vent Sodium Potassium Chloride Carbon Dioxide Anion Gap BUN Creatinine Creat Clearance w eGFR POC Glucometer 397 Random Glucose Calcium Phosphorus Magnesium Total Bilirubin AST ALT Alkaline Phosphatase Total Protein Albumin Microbiology 06/13/18 13:11 Nasopharyngeal Swab Influenza Types A,B Antigen - Final 06/13/18 13:11 Nasopharyngeal Swab - Final ASSESSMENT AND PLAN: ASSESSMENT AND PLAN: 57 yof with PMhx of asthma, morbid obesity, HTN, NIDDM, chronic back pain with opioid dependence, admitted with dyspnea. -Acute asthma exacertion/Bronchitis in the setting of recent URI -Acute hypoxic respiratory insufficiency -Hyperglycemia, NIDDM -HTN -Morbid obesity -Suspected underlying MATILDA/OHS -Chronic back pain with opioid dependence Plan: Still dyspnea, decreased air entry. Significant hypoxia with activity, ?acute on chronic. Continue IV solumedrol. Change to Duonebs standing and prn CT PE noted. Azithromycin day 2 Pulmonary consult. Check A1c, hold metformin. ISS/diabetic diet for now, additional agents based on blood sugar readings Continue verapamil/chlorthalidon Home oxycodone, dose confirmed in [employer] registry and with pharmacy DVTPPX lovenox check Drug screen Dispo needs inpatient monitoring given worsening respiratory status, ongoing hypoxia, Need for IV steroids and treatment. Plan discussed with patient in detail, all questions answered.
--- NOTE | 2018-06-14 14:59 | PN ---
Physical Exam: SUBJECTIVE: Patient seen and examined. No acute events overnight. Pt. endorses improved breathing. Pt. states that she had a sick contact with her 10 yr. 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 Pt. denies using home O2. OBJECTIVE: Vital Signs Period Temp Pulse Resp BP Sys/[place] Pulse Ox Last 24 Hr 97.8 F-98.9 F 71-98 18-20 123-160/80-97 93-97 GENERAL: The patient is awake, alert, and fully oriented, in no acute distress. NECK: Trachea midline, full range of motion, supple. LUNGS: Limited exam-2/2 obese body habitus- decreased breath sounds, no wheezing , no crackles HEART: Limited exam- regular rate and rhythm, S1, S2 without murmur ABDOMEN: Soft, nontender, nondistended, normoactive bowel sounds, no guarding, no rebound EXTREMITIES: 2+ dorsal pedal pulses, warm, well-perfused, no calf tenderness, 1 + edema. NEUROLOGICAL: Normal speech, gait not observed. PSYCH: Normal mood, normal affect. SKIN: Warm, dry, normal turgor Laboratory Results - last 24 hr 06/13/18 06/13/18 06/14/18 16:52 22:35 06:00 WBC RBC Hgb Hct MCV MCH MCHC RDW Plt Count MPV Absolute Neuts (auto) Neutrophils % Lymphocytes % Monocytes % Eosinophils % Basophils % Nucleated RBC % Anticoagulation Therapy No Result Required. Puncture Site Right radial ABG pH 7.41 ABG pCO2 at Pt Temp 57.6 H ABG pO2 at Pt Temp 57.6 L ABG HCO3 35.9 H ABG O2 Sat (Measured) 89.4 L ABG O2 Content 18.0 ABG Base Excess 9.3 H Roberto Test Positive O2 Delivery Device Room air Oxygen Flow Rate No Vent Mode No Result Required. Vent Rate No Result Required. Mechanical Rate No Result Required. Pressure Support Vent No Result Required. Sodium Potassium Chloride Carbon Dioxide Anion Gap BUN Creatinine Creat Clearance w eGFR POC Glucometer 212.65857 300 Random Glucose Calcium Phosphorus Magnesium Total Bilirubin AST ALT Alkaline Phosphatase Total Protein Albumin 06/14/18 06/14/18 06/14/18 06:20 06:30 06:30 WBC 15.0 H RBC 4.82 Hgb 12.9 Hct 42.6 MCV 88.2 MCH 26.7 MCHC 30.2 L RDW 17.2 H Plt Count 230 MPV 11.0 Absolute Neuts (auto) 13.5 H Neutrophils % 89.8 H D Lymphocytes % 7.4 L D Monocytes % 2.6 L Eosinophils % 0.0 D Basophils % 0.2 Nucleated RBC % 0 Anticoagulation Therapy Puncture Site ABG pH ABG pCO2 at Pt Temp ABG pO2 at Pt Temp ABG HCO3 ABG O2 Sat (Measured) ABG O2 Content ABG Base Excess Roberto Test O2 Delivery Device Oxygen Flow Rate Vent Mode Vent Rate Mechanical Rate Pressure Support Vent Sodium 138 Potassium 4.3 Chloride 96 L Carbon Dioxide 36 H Anion Gap 5 L BUN 12 Creatinine 0.8 Creat Clearance w eGFR > 60 POC Glucometer 190 Random Glucose 193 H Calcium 9.3 Phosphorus 2.8 Magnesium 2.5 H Total Bilirubin 0.5 AST 11 L ALT 18 Alkaline Phosphatase 73 Total Protein 6.8 Albumin 3.0 L 06/14/18 11:14 WBC RBC Hgb Hct MCV MCH MCHC RDW Plt Count MPV Absolute Neuts (auto) Neutrophils % Lymphocytes % Monocytes % Eosinophils % Basophils % Nucleated RBC % Anticoagulation Therapy Puncture Site ABG pH ABG pCO2 at Pt Temp ABG pO2 at Pt Temp ABG HCO3 ABG O2 Sat (Measured) ABG O2 Content ABG Base Excess Roberto Test O2 Delivery Device Oxygen Flow Rate Vent Mode Vent Rate Mechanical Rate Pressure Support Vent Sodium Potassium Chloride Carbon Dioxide Anion Gap BUN Creatinine Creat Clearance w eGFR POC Glucometer 397 Random Glucose Calcium Phosphorus Magnesium Total Bilirubin AST ALT Alkaline Phosphatase Total Protein Albumin Active Medications Current Medications Acetaminophen (Tylenol -) 650 mg PO Q4H PRN PRN Reason: FEVER Acetaminophen (Tylenol -) 325 mg PO Q8H PRN PRN Reason: PAIN LEVEL 6-10 Albuterol Sulfate (Ventolin 0.083% Nebulizer Soln -) 1 amp NEB Q4H PRN PRN Reason: SHORT OF BREATH/WHEEZING Last Admin: 06/14/18 15:32 Dose: 1 amp Albuterol/Ipratropium (Duoneb -) 1 amp NEB RQID [facility] Last Admin: 06/14/18 16:00 Dose: Not Given Chlorthalidone (Hygroton -) 50 mg PO DAILY [facility] Last Admin: 06/14/18 09:43 Dose: 50 mg Enoxaparin Sodium (Lovenox -) 40 mg SQ DAILY [facility] Last Admin: 06/14/18 09:19 Dose: 40 mg Azithromycin (Zithromax 500mg Ivpb (Pre-Docked)) 500 mg in 250 mls @ 250 mls/ hr IVPB DAILY [facility] Last Admin: 06/14/18 09:23 Dose: 250 mls/hr Insulin Aspart (Novolog Vial Sliding Scale -) 1 vial SQ ACHS [facility]; Protocol Last Admin: 06/14/18 16:46 Dose: 10 units Methylprednisolone Sodium Succinate (Solu-Medrol -) 40 mg IVPUSH Q8H-IV [facility] Last Admin: 06/14/18 17:36 Dose: 40 mg Oxycodone HCl (Roxicodone -) 10 mg PO Q8H PRN PRN Reason: PAIN LEVEL 6-10 Last Admin: 06/13/18 22:37 Dose: 10 mg Verapamil HCl (Calan Sr -) 180 mg PO BID [facility] Last Admin: 06/14/18 09:34 Dose: 180 mg Home Medications Medication Instructions Recorded Chlorthalidone 50 mg PO DAILY 01/04/15 Metformin HCl [Metformin HCl ER] 500 mg PO BID 01/04/15 Oxycodone HCl/Acetaminophen 1 each PO Q8H PRN MDD 3 06/13/18 [Oxycodone-Acetaminophen 10-325] Verapamil HCl [Verapamil ER] 180 mg PO BID 06/13/18 Albuterol Sulfate [Proair 1 puff NEB Q6H 06/14/18 [facility]] ASSESSMENT/PLAN: A 57 y.o. F w/ PMHx. of Asthma(since 31), [place], NIDDM, HTN, Marijuana use, and chronic back pain (chronic opioid use) presents with progressively worsening shortness of breath for the last 3 weeks. #Pulmonology -Asthma c/w Solumedrol 40mg Q8H c/w Duonebs RTID and Q4H PRN c/w Azithromycin 500mg CTA Chest- limited study, shows severe dextroscoliosis, no gross PE in pulmonary artery or proximal branches, mild bibasal atelectatic changes w/o acute lung disease Pt. failed Pre and Post, desaturated to 83% after 6 minutes walking on flat service #Endocrine -NIDDM Hold Metformin ISS ACHS BGM ACHS f/u HgbA1c #Cardiology -HTN c/w Verapamil 180mg BID c/w Chlorthalidone 50mg #F/E/N -no IVF, encourage PO intake -monitor electrolytes and replete as needed -Diabetic Diet #DVT Ppx. c/w Lovenox 40mg Visit type - Emergency Visit Emergency Visit: No - New Patient This patient is new to me today: Yes Date on this admission: 06/14/18 - Critical Care Critical Care patient: No - Discharge Referral Referred to [facility] Med P.C.: No
--- NOTE | 2018-06-14 15:40 | PN ---
Progress Note (short form) - Note Progress Note: PULMONARY CONSULTATION DICTATED 06/14/18 IMP ACUTE ON CHRONIC HYPOXEMIC/HYPERCAPNEIC RESPIRATORY FAILURE ASTHMA EXACERBATION SEVERE KYPHOSCOLIOSIS LIKELY OBESITY HYPOVENTILATION SYNDROME H/O MATILDA DM HTN PLAN INHALED BRONCHODILATORS O2 SHORT COURSE OF MEDROL SLEEP SCREEN CHECK O2 SAT AT REST AND EXERCISE PRIOR TO DISCHARGE TO DETERMINE IF PT IS A CANDIDATE FOR HOME O2 DVT PROPHYLAXIS PFTS OUTPATIENT DIETARY EVALUATION FOR WT REDUCTION DR CHAPMAN Problem List - Problems (1) Acute on chronic respiratory failure with hypoxia and hypercapnia Code(s): J96.21 - ACUTE AND CHRONIC RESPIRATORY FAILURE WITH HYPOXIA; J96.22 - ACUTE AND CHRONIC RESPIRATORY FAILURE WITH HYPERCAPNIA (2) Diabetes type 2, controlled Code(s): E11.9 - TYPE 2 DIABETES MELLITUS WITHOUT COMPLICATIONS Qualifiers: Diabetes mellitus long-term insulin use: without terminal makeup operator use Diabetes mellitus complication status: without complication Qualified Code(s): E11.9 - Type 2 diabetes mellitus without complications (3) HTN (hypertension) Code(s): I10 - ESSENTIAL (PRIMARY) HYPERTENSION Qualifiers: Hypertension type: essential hypertension Qualified Code(s): I10 - Essential (primary) hypertension (4) Hypoxia Code(s): R09.02 - HYPOXEMIA (5) SOB (shortness of breath) Code(s): R06.02 - SHORTNESS OF BREATH (6) Sleep apnea Code(s): G47.30 - SLEEP APNEA, UNSPECIFIED (7) Morbid obesity Code(s): E66.01 - MORBID (SEVERE) OBESITY DUE TO EXCESS CALORIES (8) Kyphoscoliosis Code(s): M41.9 - SCOLIOSIS, UNSPECIFIED (9) Obesity hypoventilation syndrome Code(s): E66.2 - MORBID (SEVERE) OBESITY WITH ALVEOLAR HYPOVENTILATION
[2018-06-14] MEDS ORDERED: ALBUTEROL SO4 0.083% IH SOL 2.5 MG/3 ML VIAL.NEB. NEB PRN (15:45)
[2018-06-14] MEDS: ALBUTEROL SO4 2.5/IPRATROPIUM 0.5 INH SOL 3 ML VIAL.NEB. NEB SCH ×2 (16:00→20:56)
[2018-06-14 16:28] LABS: COCAINE, UR NEGATIVE ng/ml (CUTOFF=300); METHADONE, UR NEGATIVE ng/ml (CUTOFF=300); OPIATES, URI NEGATIVE ng/ml (CUTOFF=300); PHENCYCLIDINE,URINE NEGATIVE ng/ml (CUTOFF=25); URINE BARBITURATES NEGATIVE ng/ml (CUTOFF=200); URINE BENZODIAZEPINES NEGATIVE ng/ml (CUTOFF=200)
[2018-06-14 16:29] LABS: URINE AMPHETAMINES NEGATIVE ng/ml (CUTOFF=500)
--- NOTE | 2018-06-14 16:38 | CONS ---
DATE OF CONSULTATION: 06/14/2018 REFERRING PHYSICIAN: Hilary Saha MD The patient is a 57-year-old black female with a past medical history of asthma, morbid obesity, obstructive sleep apnea, has not been using BiPAP in years or CPAP in years, hypertension, history of tjp-oydkejr-nfrujmtiw diabetes mellitus, severe kyphoscoliosis, admitted to [facility] with complaint of 2-week history of increasing shortness of breath and dyspnea on exertion. Patient denied any chest pain, nausea, vomiting, or diaphoresis. She states that 2 weeks ago she started developing increasing shortness of breath which she attributed to the change in weather. She had a nebulizer at home but apparently it was not working right so she was not using it. She has an occasional cough which is nonproductive. Denied any fevers or chills. Her symptoms continued to worsen, where she was only able to ambulate a few feet without getting severe dyspnea, at which time she presented to the emergency room. She denies any fevers, weight loss, night sweats. Denies any hemoptysis. She has been hospitalized in the past secondary to respiratory failure, requiring non-invasive ventilatory support, 18 years ago at [facility]. At the time post discharge, she was sent home on home oxygen for a short period of time. Patient does complain of snoring and frequent nocturnal episodes where she wakes up short of breath, as well as daytime sleepiness. Past medical history, again, includes asthma, hypertension, czb-edoclad-jfvvxlztp diabetes mellitus, severe kyphoscoliosis. 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 History of occasional tobacco many years ago. REVIEW OF SYSTEMS: Positive orthopnea, positive dyspnea, positive cough. No wheezing. No chest pain. No palpitation. No abdominal pain. Current medications include Solu-Medrol, Tylenol, Zithromax, Lovenox, albuterol, Calan, NovoLog, Roxicodone, Hygroton. PHYSICAL EXAMINATION: General: The patient is a morbidly obese female, well developed, awake, alert, in no acute distress. Vital Signs: She is afebrile. Blood pressure is 123/80. Respiratory rate 18. O2 saturation 92% on 2 L. She is afebrile. Of note is the patient was hypoxic in the emergency room with O2 saturations of 88% on room air. HEENT: Normocephalic, atraumatic. Neck: Supple. Heart: Regular, S1, S2. Chest: Diminished breath sounds bilaterally. Abdomen: Soft. Bowel sounds positive. Extremities: No cyanosis. Bilateral lower extremity edema. LABORATORY DATA: WBC is 15, hemoglobin 12.9, hematocrit 42.6, platelet count of 230,000. Venous blood gas: pH 7.40, pCO2 of 46, a pO2 47, pO2 of 39. Subsequent ABG on room air: pH 7.41, pCO2 of 56, pO2 of 57, a bicarbonate of 35, and a saturation of 89. BUN 12, creatinine 0.8. Chest CTA: No infiltrates and no effusions, no evidence of pulmonary emboli, the severe kyphoscoliosis. IMPRESSION: Acute on chronic hypoxemic hypercapnic respiratory failure: 1. Possible mild asthma/chronic obstructive pulmonary disease asthma exacerbation. 2. Severe kyphoscoliosis. 3. Likely obesity hypoventilation syndrome. 4. Obstructive sleep apnea. 5. Diabetes. 6. Hypertension. PLAN: Inhaled bronchodilators, supplemental O2, sleep screen. Check O2 saturation prior to discharge, at rest and post exertion, to determine if patient is a candidate for home O2. Obtain echocardiogram to rule in the pulmonary hypertension. Weight reduction counseled. Short course of steroids. DVT prophylaxis. NELSON CHAPMAN M.D. ROHIT/[id number]
[2018-06-14] MEDS ORDERED: methylPREDNISolone NA SUCC 40 MG/1 ML VIAL IVPUSH SCH (21:00)
[2018-06-15] MEDS: methylPREDNISolone NA SUCC 40 MG/1 ML VIAL IVPUSH SCH ×3 (01:11→21:30)
[2018-06-15] MEDS: oxyCODONE HCL 5 MG TABLET PO PRN ×2 (01:33→22:46)
[2018-06-15] MEDS: INSULIN SLIDING SCALE (NOVOLOG) 1 VIAL SQ SCH ×4 (06:28→21:46)
[2018-06-15 07:35] LABS: HEMATOCRIT 42.6 % (32.4-45.2); HEMOGLOBIN 12.9 GM/dL (10.7-15.3); MCH 26.9 pg (25.7-33.7); MCHC 30.4 g/dl (32.0-36.0); MEAN CELL VOLUME 88.4 fl (80-96); MEAN PLT VOLUME 10.2 fl (7.5-11.1); PLATELET COUNT 235 K/MM3 (134-434); RBC 4.81 M/mm3 (3.60-5.2); RDW 17.4 % (11.6-15.6); WHITE BLOOD COUNT 18.4 K/mm3 (4.0-10.0)
[2018-06-15 07:51] LABS: ANION GAP 3 MMOL/L (8-16); BLOOD UREA NITROGEN 13 mg/dL (7-18); CALCIUM 9.6 mg/dL (8.5-10.1); CHLORIDE 97 mmol/L (98-107); CO2 39 mmol/L (21-32); CREATININE 0.8 mg/dL (0.55-1.3); GLUCOSE,RANDOM 208 mg/dL (74-106); MAGNESIUM 2.8 mg/dL (1.8-2.4); PHOSPHOROUS 3.4 mg/dL (2.5-4.9); POTASSIUM 4.8 mmol/L (3.5-5.1); SODIUM 139 mmol/L (136-145)
[2018-06-15] MEDS: ALBUTEROL SO4 2.5/IPRATROPIUM 0.5 INH SOL 3 ML VIAL.NEB. NEB SCH ×4 (08:00→20:30)
--- NOTE | 2018-06-15 08:38 | PN ---
Teaching Attending Note Name of Resident: Margarito Rocha ATTENDING PHYSICIAN STATEMENT I saw and evaluated the patient. I reviewed the resident's note and discussed the case with the resident. I agree with the resident's findings and plan as documented with exceptions below. SUBJECTIVE: Patient seen and examined. breathing improved, overall feels better. OBJECTIVE: Vital Signs Period Temp Pulse Resp BP Sys/Augsutine Pulse Ox Last 24 Hr 97.8 F-99.3 F 71-96 18-20 123-165/72-97 97-97 Intake & Output 06/12/18 06/13/18 06/14/18 06/15/18 23:59 23:59 23:59 23:59 Intake Total 400 750 200 Balance 400 750 200 Weight 332 lb 6 oz General: sitting in bed, improved tachypnea/respiratory effort Chest: improved air entry, no rales or wheezing, exam limited by body habitus Extremities: no edema Active Medications Acetaminophen (Tylenol -) 650 mg PO Q4H PRN PRN Reason: FEVER Acetaminophen (Tylenol -) 325 mg PO Q8H PRN PRN Reason: PAIN LEVEL 6-10 Albuterol Sulfate (Ventolin 0.083% Nebulizer Soln -) 1 amp NEB Q4H PRN PRN Reason: SHORT OF BREATH/WHEEZING Last Admin: 06/14/18 15:32 Dose: 1 amp Albuterol/Ipratropium (Duoneb -) 1 amp NEB RQID XOCHITL Last Admin: 06/14/18 20:56 Dose: 1 amp Chlorthalidone (Hygroton -) 50 mg PO DAILY [facility] Last Admin: 06/14/18 09:43 Dose: 50 mg Enoxaparin Sodium (Lovenox -) 40 mg SQ DAILY [facility] Last Admin: 06/14/18 09:19 Dose: 40 mg Azithromycin (Zithromax 500mg Ivpb (Pre-Docked)) 500 mg in 250 mls @ 250 mls/ hr IVPB DAILY XOCHITL Last Admin: 06/14/18 09:23 Dose: 250 mls/hr Insulin Aspart (Novolog Vial Sliding Scale -) 1 vial SQ ACHS [facility]; Protocol Last Admin: 06/15/18 06:28 Dose: 2 units Methylprednisolone Sodium Succinate (Solu-Medrol -) 40 mg IVPUSH Q8H-IV XOCHITL Last Admin: 06/15/18 01:11 Dose: 40 mg Oxycodone HCl (Roxicodone -) 10 mg PO Q8H PRN PRN Reason: PAIN LEVEL 6-10 Last Admin: 06/15/18 01:33 Dose: 10 mg Verapamil HCl (Calan Sr -) 180 mg PO BID XOCHITL Last Admin: 06/14/18 22:02 Dose: 180 mg Laboratory Results - last 24 hr 06/14/18 06/14/18 06/14/18 11:14 14:35 16:44 WBC RBC Hgb Hct MCV MCH MCHC RDW Plt Count MPV Sodium Potassium Chloride Carbon Dioxide Anion Gap BUN Creatinine Creat Clearance w eGFR POC Glucometer 397 360 Random Glucose Calcium Phosphorus Magnesium Opiates Screen Negative Methadone Screen Negative Barbiturate Screen Negative Phencyclidine Screen Negative Ur Amphetamines Screen Negative MDMA (Ecstasy) Screen Negative Benzodiazepines Screen Negative Cocaine Screen Negative U Marijuana (THC) Screen Negative 06/14/18 06/15/18 06/15/18 21:20 05:31 06:45 WBC 18.4 H RBC 4.81 Hgb 12.9 Hct 42.6 MCV 88.4 MCH 26.9 MCHC 30.4 L RDW 17.4 H Plt Count 235 MPV 10.2 Sodium Potassium Chloride Carbon Dioxide Anion Gap BUN Creatinine Creat Clearance w eGFR POC Glucometer 307 197 Random Glucose Calcium Phosphorus Magnesium Opiates Screen Methadone Screen Barbiturate Screen Phencyclidine Screen Ur Amphetamines Screen MDMA (Ecstasy) Screen Benzodiazepines Screen Cocaine Screen U Marijuana (THC) Screen 06/15/18 06:45 WBC RBC Hgb Hct MCV MCH MCHC RDW Plt Count MPV Sodium 139 Potassium 4.8 Chloride 97 L Carbon Dioxide 39 H Anion Gap 3 L BUN 13 Creatinine 0.8 Creat Clearance w eGFR > 60 POC Glucometer Random Glucose 208 H Calcium 9.6 Phosphorus 3.4 Magnesium 2.8 H Opiates Screen Methadone Screen Barbiturate Screen Phencyclidine Screen Ur Amphetamines Screen MDMA (Ecstasy) Screen Benzodiazepines Screen Cocaine Screen U Marijuana (THC) Screen ASSESSMENT AND PLAN: 57 yof with PMhx of asthma, morbid obesity, HTN, NIDDM, chronic back pain with opioid dependence, admitted with dyspnea. -Acute asthma exacertion/Bronchitis in the setting of recent URI -Acute on chronic hypoxemic/hypercapneic respiratory failure -Hyperglycemia, NIDDM -HTN -Morbid obesity -Suspected underlying MATILDA/OHS -Chronic back pain with opioid dependence Plan: Breathing improved. taper solumedrol 40 mg IV q12h, transition to PO in AM. Pulmonary input noted. s/p sleep screen last night. Will need outpatient pulmonary follow up to address cpap and additional work up. Patient hesitant on home oxygen, reassess home oxygen needs tomorrow. CT PE noted s/p 3 days of azithromycin, dc after today. A1c 7.7, Hyperglycemia likely steroid induced. resume metformin 48-72 from contrast ingestion. Would hold off on additional agents as anticipate improvement once steroids tapered. Continue verapamil/chlorthalidon Home oxycodone, dose confirmed in [employer] registry and with pharmacy DVTPPX lovenox Drug screen neg. Dispo plan for d/c in 24h on po steroids +/- home oxygen with outpatient pulmonary follow up. Plan discussed with patient in detail, all questions answered.
[2018-06-15] MEDS: ENOXAPARIN NA (PORCINE) 40 MG/0.4 ML DISP.SYRIN SQ SCH (09:14)
[2018-06-15] MEDS: CHLORTHALIDONE 25 MG TABLET PO SCH (09:14)
[2018-06-15] MEDS ORDERED: PT OWN MED DRAWER 7, Y5N ONE ×2 (09:16→21:25)
[2018-06-15] MEDS: VERAPAMIL HCL 180 MG E.R. TABLET (FP) PO SCH ×2 (09:18→21:29)
[2018-06-15] MEDS: AZITHROMYCIN IVPB 500 MG/250 ML BAG IVPB SCH (09:20)
--- NOTE | 2018-06-15 09:39 | PN ---
Physical Exam: SUBJECTIVE: Patient seen and examined this AM. She states that she is feeling much better today than yesterday. She states she is still having a dry cough but denies any fevers or chills. OBJECTIVE: Vital Signs Period Temp Pulse Resp BP Sys/Augustine Pulse Ox Last 24 Hr 97.8 F-99.3 F 71-96 18-20 123-165/72-97 97-97 GENERAL: A&O, morbidly obese no acute distress HEAD: Normocephalic, atraumatic. EYES: PERRL, no scleral icterus EARS, NOSE, THROAT: oropharynx clear without exudates. Moist mucous membranes. NECK: supple without lymphadenopathy LUNGS: Diffuse mild wheezes, decreased breath sounds likely secondary to body habitus HEART: Regular rate and rhythm, normal S1 and S2 without murmur ABDOMEN: Soft, obese, nontender to palpation, normoactive bowel sounds MUSCULOSKELETAL: No bony deformities or tenderness. EXTREMITIES: 2+ pulses, warm, well-perfused. No peripheral edema. Laboratory Results - last 24 hr 06/14/18 06/14/18 06/14/18 11:14 14:35 16:44 WBC RBC Hgb Hct MCV MCH MCHC RDW Plt Count MPV Sodium Potassium Chloride Carbon Dioxide Anion Gap BUN Creatinine Creat Clearance w eGFR POC Glucometer 397 360 Random Glucose Calcium Phosphorus Magnesium Opiates Screen Negative Methadone Screen Negative Barbiturate Screen Negative Phencyclidine Screen Negative Ur Amphetamines Screen Negative MDMA (Ecstasy) Screen Negative Benzodiazepines Screen Negative Cocaine Screen Negative U Marijuana (THC) Screen Negative 06/14/18 06/15/18 06/15/18 21:20 05:31 06:45 WBC 18.4 H RBC 4.81 Hgb 12.9 Hct 42.6 MCV 88.4 MCH 26.9 MCHC 30.4 L RDW 17.4 H Plt Count 235 MPV 10.2 Sodium Potassium Chloride Carbon Dioxide Anion Gap BUN Creatinine Creat Clearance w eGFR POC Glucometer 307 197 Random Glucose Calcium Phosphorus Magnesium Opiates Screen Methadone Screen Barbiturate Screen Phencyclidine Screen Ur Amphetamines Screen MDMA (Ecstasy) Screen Benzodiazepines Screen Cocaine Screen U Marijuana (THC) Screen 06/15/18 06:45 WBC RBC Hgb Hct MCV MCH MCHC RDW Plt Count MPV Sodium 139 Potassium 4.8 Chloride 97 L Carbon Dioxide 39 H Anion Gap 3 L BUN 13 Creatinine 0.8 Creat Clearance w eGFR > 60 POC Glucometer Random Glucose 208 H Calcium 9.6 Phosphorus 3.4 Magnesium 2.8 H Opiates Screen Methadone Screen Barbiturate Screen Phencyclidine Screen Ur Amphetamines Screen MDMA (Ecstasy) Screen Benzodiazepines Screen Cocaine Screen U Marijuana (THC) Screen Active Medications Generic Name Dose Route Start Last Admin Trade Name Freq PRN Reason Stop Dose Admin Acetaminophen 650 mg 06/13/18 16:06 Tylenol - PO Q4H PRN FEVER Acetaminophen 325 mg 06/13/18 22:29 Tylenol - PO Q8H PRN PAIN LEVEL 6-10 Albuterol Sulfate 1 amp 06/14/18 15:45 06/14/18 15:32 Ventolin 0.083% Nebulizer Soln - NEB 1 amp Q4H PRN Administration SHORT OF BREATH/WHEEZING Albuterol/Ipratropium 1 amp 06/14/18 16:00 06/14/18 20:56 Duoneb - NEB 1 amp RQID XOCHITL Administration Chlorthalidone 50 mg 06/14/18 10:00 06/15/18 09:14 Hygroton - PO 50 mg DAILY XOCHITL Administration Enoxaparin Sodium 40 mg 06/14/18 10:00 06/15/18 09:14 Lovenox - SQ 40 mg DAILY XOCHITL Administration Azithromycin 500 mg in 250 mls @ 250 mls/hr 06/13/18 18:00 06/15/18 09:20 Zithromax 500mg Ivpb (Pre-Docked) IVPB 250 mls/hr DAILY XOCHITL Administration Insulin Aspart 1 vial 06/13/18 16:30 06/15/18 06:28 Novolog Vial Sliding Scale - SQ 2 units ACHS XOCHITL Administration Protocol Methylprednisolone Sodium Succinate 40 mg 06/14/18 18:00 06/15/18 09:14 Solu-Medrol - IVPUSH 40 mg Q8H-IV XOCHITL Administration Oxycodone HCl 10 mg 06/13/18 22:29 06/15/18 01:33 Roxicodone - PO 10 mg Q8H PRN Administration PAIN LEVEL 6-10 Verapamil HCl 180 mg 06/13/18 22:00 06/15/18 09:18 Calan Sr - PO 180 mg BID XOCHITL Administration ASSESSMENT/PLAN: 57 yo F with PMH of Asthma(dx at 31), Morbid Obesity, NIDDM, HTN, and chronic back pain (chronic opioid use) admitted with progressively worsening shortness of breath for the last 3 weeks. Acute on Chronic Hypoxemic/Hypercapnic Respiratory Failure -Pt states she is feeling better than yesterday -Likely Obesity hypoventilation syndrome overlapping with MATILDA -Pulmonary Hypertension noted on ECHO -Duonebs QID -Ventolin NEBs Q4 -SoluMedrol 40 Q8 -Pre-post noted, pt will need home O2 -Flu swab negative -Zithromax 500 mg IV Daily Obstructive Sleep Apnea -Sleep screen positive -Will need outpatient sleep study NIDDM -BGMs -Insulin Sliding scale -A1C pending HTN -Verapamil 180 mg PO BID -Clorthalidone 50 mg PO Daily Morbid Obesity -BMI 50.5 -Consider Dietary consult for weight loss recommendations -Consider bariatric surgery consult as outpatient DVT Prophylaxis -Lovenox 40 mg SQ Daily FEN -Fluids: None -Electrolytes: No electrolyte abnormalities, BMP in AM -Nutrition: Diabetic Diet Disposition Med/Surg, will continue to follow Visit type - Emergency Visit Emergency Visit: Yes ED Registration Date: 06/14/18 Care time: The patient presented to the Emergency Department on the above date and was hospitalized for further evaluation of their emergent condition. - New Patient This patient is new to me today: No - Critical Care Critical Care patient: No
--- NOTE | 2018-06-15 13:30 | ECHO ---
Version: 1 Name: ALYSA MASSEY Exam: Adult Echocardiogram Study Date: 06/15/2018, 10:13 AM Age: 57 Years MMode/2D Measurements & Calculations IVSd: 0.87 cm LVIDs: 3.5 cm LVIDd: 6.0 cm LVPWd: 1.02 cm ACS: 1.70 cm Ao root diam: 4.0 cm LA dimension: 4.3 cm Doppler Measurements & Calculations MV E max derrick: 109.1 cm/sec Med E/e': 30.2 MV A max derrick: 130.1 cm/sec Med Peak E' Derrick: 3.6 cm/sec MV E/A: 0.84 Lat E/e': 36.1 Lat Peak E' Derrick: 3.0 cm/sec TR max derrick: 300.0 cm/sec TR max P.1 mmHg Procedure A two-dimensional transthoracic echocardiogram with color flow and Doppler was performed. The study was technically difficult with many images being suboptimal in quality. Left Ventricle The left ventricle is mildly dilated. The left ventricle is not well visualized. The left ventricula r ejection fraction is normal. Regional wall motion abnormalities cannot be excluded due to limited visualization. Right Ventricle The right ventricle is not well visualized. Atria The left atrium is mildly dilated. The right atrium is mildly dilated. Mitral Valve The mitral valve is not well visualized. Tricuspid Valve The tricuspid valve is not well visualized. There is no tricuspid stenosis. There is mild tricuspid regurgitation. Right ventricular systolic pressure is elevated at 50-60mmHg. Aortic Valve The aortic valve is not well visualized. No hemodynamically significant valvular aortic stenosis. No aortic regurgitation is present. Great Vessels Mild aortic root dilatation. Pericardium/Pleura There is no pericardial effusion. Summary Statements The left ventricle is mildly dilated. The study was technically difficult with many images being suboptimal in quality. Mild aortic root dilatation. The left ventricle is not well visualized. The left ventricular ejection fraction is normal. Regional wall motion abnormalities cannot be excluded due to limited visualization. The mitral valve is not well visualized. The tricuspid valve is not well visualized. There is mild tricuspid regurgitation. Right ventricular systolic pressure is elevated at 50-60mmHg. The left atrium is mildly dilated. The right atrium is mildly dilated. MD Link Bryant 06/15/2018, 1:30 PM Ordering Physician: Mor Oquendo Performed By: Kathleen Holley
--- NOTE | 2018-06-15 14:53 | PN ---
Teaching Attending Note Name of Resident: Bravo Melendrez ATTENDING PHYSICIAN STATEMENT I saw and evaluated the patient. I reviewed the resident's note and discussed the case with the resident. I agree with the resident's findings and plan as documen pulmonary feeling better,less dyspneic. echo + severe pulmonary htn. SLEEP SCREEN +AHI 33.4 c/w severe osas IMP ACUTE ON CHRONIC HYPOXEMIC/HYPERCAPNEIC RESPIRATORY FAILURE ASTHMA EXACERBATION SEVERE KYPHOSCOLIOSIS LIKELY OBESITY HYPOVENTILATION SYNDROME H/O MATILDA DM HTN PLAN INHALED BRONCHODILATORS O2 MEDROL TAPER IN AM FORMAL SLEEP STUDIES OUTPATIENT. CHECK O2 SAT AT REST AND EXERCISE PRIOR TO DISCHARGE TO DETERMINE IF PT IS A CANDIDATE FOR HOME O2 DVT PROPHYLAXIS PFTS OUTPATIENT DIETARY EVALUATION FOR WT REDUCTION DR CHAPMAN Problem List - Problems (1) Acute on chronic respiratory failure with hypoxia and hypercapnia Code(s): J96.21 - ACUTE AND CHRONIC RESPIRATORY FAILURE WITH HYPOXIA; J96.22 - ACUTE AND CHRONIC RESPIRATORY FAILURE WITH HYPERCAPNIA (2) Diabetes type 2, controlled Code(s): E11.9 - TYPE 2 DIABETES MELLITUS WITHOUT COMPLICATIONS Qualifiers: Diabetes mellitus skilled nursing insulin use: without long term acute care registered nurse use Diabetes mellitus complication status: without complication Qualified Code(s): E11.9 - Type 2 diabetes mellitus without complications (3) HTN (hypertension) Code(s): I10 - ESSENTIAL (PRIMARY) HYPERTENSION Qualifiers: Hypertension type: essential hypertension Qualified Code(s): I10 - Essential (primary) hypertension (4) Hypoxia Code(s): R09.02 - HYPOXEMIA (5) SOB (shortness of breath) Code(s): R06.02 - SHORTNESS OF BREATH (6) Sleep apnea Code(s): G47.30 - SLEEP APNEA, UNSPECIFIED (7) Morbid obesity Code(s): E66.01 - MORBID (SEVERE) OBESITY DUE TO EXCESS CALORIES (8) Kyphoscoliosis Code(s): M41.9 - SCOLIOSIS, UNSPECIFIED (9) Obesity hypoventilation syndrome Code(s): E66.2 - MORBID (SEVERE) OBESITY WITH ALVEOLAR HYPOVENTILATION Problem List - Problems (1) Acute on chronic respiratory failure with hypoxia and hypercapnia Code(s): J96.21 - ACUTE AND CHRONIC RESPIRATORY FAILURE WITH HYPOXIA; J96.22 - ACUTE AND CHRONIC RESPIRATORY FAILURE WITH HYPERCAPNIA (2) Diabetes type 2, controlled Code(s): E11.9 - TYPE 2 DIABETES MELLITUS WITHOUT COMPLICATIONS Qualifiers: Diabetes mellitus long term acute care registered nurse insulin use: without long term acute care registered nurse use Diabetes mellitus complication status: without complication Qualified Code(s): E11.9 - Type 2 diabetes mellitus without complications (3) HTN (hypertension) Code(s): I10 - ESSENTIAL (PRIMARY) HYPERTENSION Qualifiers: Hypertension type: essential hypertension Qualified Code(s): I10 - Essential (primary) hypertension (4) Hypoxia Code(s): R09.02 - HYPOXEMIA (5) SOB (shortness of breath) Code(s): R06.02 - SHORTNESS OF BREATH (6) Sleep apnea Code(s): G47.30 - SLEEP APNEA, UNSPECIFIED (7) Morbid obesity Code(s): E66.01 - MORBID (SEVERE) OBESITY DUE TO EXCESS CALORIES (8) Kyphoscoliosis Code(s): M41.9 - SCOLIOSIS, UNSPECIFIED (9) Obesity hypoventilation syndrome Code(s): E66.2 - MORBID (SEVERE) OBESITY WITH ALVEOLAR HYPOVENTILATION
--- NOTE | 2018-06-15 16:57 | PN ---
Physical Exam: SUBJECTIVE: Patient seen and examined. No acute events overnight. Pt. states that breathing is better. Discussed with Pt. medical management of chronic conditions as outpatient and Pt. has agreed to follow up at our clinic for continued care after discharge. Pt. is amenable to bariatric surgery at some point in the future and would like to begin the process of evaluation and optimization for such procedure. OBJECTIVE: Vital Signs Period Temp Pulse Resp BP Sys/Augustine Pulse Ox Last 24 Hr 98 F-99.3 F 71-96 18-20 129-165/67-97 90-97 GENERAL: The patient is awake, alert, and fully oriented, in no acute distress. ENT: Ears normal, nares patent, oropharynx clear without exudates, moist mucous membranes. NECK: Trachea midline, full range of motion, supple. LUNGS: Limited-Decreased breath sounds, no wheezes, no crackles, no accessory muscle use at rest. HEART: Regular rate and rhythm, S1, S2 without murmur, rub or gallop. ABDOMEN: Soft, nontender, nondistended, normoactive bowel sounds, no guarding, no rebound, no hepatosplenomegaly, no masses. EXTREMITIES: 2+ pulses, warm, well-perfused, no edema. NEUROLOGICAL: Cranial nerves II through XII grossly intact. Normal speech, gait not observed. PSYCH: Normal mood, normal affect. SKIN: Warm, dry, normal turgor, no rashes or lesions noted Laboratory Results - last 24 hr 06/14/18 06/14/18 06/15/18 16:44 21:20 05:31 WBC RBC Hgb Hct MCV MCH MCHC RDW Plt Count MPV Sodium Potassium Chloride Carbon Dioxide Anion Gap BUN Creatinine Creat Clearance w eGFR POC Glucometer 360 307 197 Random Glucose Hemoglobin A1c % Calcium Phosphorus Magnesium 06/15/18 06/15/18 06/15/18 06:45 06:45 07:00 WBC 18.4 H RBC 4.81 Hgb 12.9 Hct 42.6 MCV 88.4 MCH 26.9 MCHC 30.4 L RDW 17.4 H Plt Count 235 MPV 10.2 Sodium 139 Potassium 4.8 Chloride 97 L Carbon Dioxide 39 H Anion Gap 3 L BUN 13 Creatinine 0.8 Creat Clearance w eGFR > 60 POC Glucometer Random Glucose 208 H Hemoglobin A1c % 7.7 H Calcium 9.6 Phosphorus 3.4 Magnesium 2.8 H 06/15/18 11:28 WBC RBC Hgb Hct MCV MCH MCHC RDW Plt Count MPV Sodium Potassium Chloride Carbon Dioxide Anion Gap BUN Creatinine Creat Clearance w eGFR POC Glucometer 255 Random Glucose Hemoglobin A1c % Calcium Phosphorus Magnesium Active Medications Current Medications Acetaminophen (Tylenol -) 650 mg PO Q4H PRN PRN Reason: FEVER Acetaminophen (Tylenol -) 325 mg PO Q8H PRN PRN Reason: PAIN LEVEL 6-10 Albuterol Sulfate (Ventolin 0.083% Nebulizer Soln -) 1 amp NEB Q4H PRN PRN Reason: SHORT OF BREATH/WHEEZING Last Admin: 06/14/18 15:32 Dose: 1 amp Albuterol/Ipratropium (Duoneb -) 1 amp NEB RQID [facility] Last Admin: 06/15/18 15:27 Dose: 1 amp Chlorthalidone (Hygroton -) 50 mg PO DAILY [facility] Last Admin: 06/15/18 09:14 Dose: 50 mg Enoxaparin Sodium (Lovenox -) 40 mg SQ DAILY [facility] Last Admin: 06/15/18 09:14 Dose: 40 mg Insulin Aspart (Novolog Vial Sliding Scale -) 1 vial SQ ACHS [facility]; Protocol Last Admin: 06/15/18 12:24 Dose: 6 units Methylprednisolone Sodium Succinate (Solu-Medrol -) 40 mg IVPUSH BID [facility] Oxycodone HCl (Roxicodone -) 10 mg PO Q8H PRN PRN Reason: PAIN LEVEL 6-10 Last Admin: 06/15/18 01:33 Dose: 10 mg Verapamil HCl (Calan Sr -) 180 mg PO BID [facility] Last Admin: 06/15/18 09:18 Dose: 180 mg Home Medications Medication Instructions Recorded Chlorthalidone 50 mg PO DAILY 01/04/15 Metformin HCl [Metformin HCl ER] 500 mg PO BID 01/04/15 Oxycodone HCl/Acetaminophen 1 each PO Q8H PRN MDD 3 06/13/18 [Oxycodone-Acetaminophen 10-325] Verapamil HCl [Verapamil ER] 180 mg PO BID 06/13/18 Albuterol Sulfate [Proair 1 puff NEB Q6H 06/14/18 Respiclick] ASSESSMENT/PLAN: A 57 y.o. F w/ PMHx. of Asthma(since 31), MO, NIDDM, HTN, Marijuana use, and chronic back pain (chronic opioid use) presents with progressively worsening shortness of breath for the last 3 weeks. #Pulmonology -Asthma decreased Solumedrol to 40mg BID c/w Duonebs RTID and Q4H PRN D/c Azithromycin 500mg CTA Chest- limited study, shows severe dextroscoliosis, no gross PE in pulmonary artery or proximal branches, mild bibasal atelectatic changes w/o acute lung disease Pt. failed Pre and Post, desaturated to 83% after 6 minutes walking on flat service Pt. failed Rpt. Pre and Post with myself this afternoon, desaturating to 82% after less than 2 min walking on flat surface. #Endocrine -NIDDM Hold Metformin ISS ACHS BGM ACHS HgbA1c: 7.7% #Cardiology -HTN c/w Verapamil 180mg BID c/w Chlorthalidone 50mg #F/E/N -no IVF, encourage PO intake -monitor electrolytes and replete as needed -Diabetic Diet #DVT Ppx. c/w Lovenox 40mg Visit type - Emergency Visit Emergency Visit: Yes ED Registration Date: 06/14/18 Care time: The patient presented to the Emergency Department on the above date and was hospitalized for further evaluation of their emergent condition. - New Patient This patient is new to me today: No - Critical Care Critical Care patient: No - Discharge Referral Referred to [facility] No
[2018-06-15] MEDS ORDERED: INSULIN (NOVOLOG) ASPART 100 UNITS/ML 10ML VIAL ONE (21:53)
[2018-06-16 06:08] LABS: HEMATOCRIT 43.3 % (32.4-45.2); HEMOGLOBIN 13.3 GM/dL (10.7-15.3); MCH 26.8 pg (25.7-33.7); MCHC 30.6 g/dl (32.0-36.0); MEAN CELL VOLUME 87.5 fl (80-96); MEAN PLT VOLUME 10.6 fl (7.5-11.1); RBC 4.95 M/mm3 (3.60-5.2); RDW 16.9 % (11.6-15.6); WHITE BLOOD COUNT 16.4 K/mm3 (4.0-10.0)
[2018-06-16] MEDS: INSULIN SLIDING SCALE (NOVOLOG) 1 VIAL SQ SCH ×3 (06:20→17:50)
[2018-06-16 06:50] LABS: ANION GAP 7 MMOL/L (8-16); BLOOD UREA NITROGEN 18 mg/dL (7-18); CALCIUM 9.6 mg/dL (8.5-10.1); CHLORIDE 95 mmol/L (98-107); CO2 36 mmol/L (21-32); CREATININE 0.9 mg/dL (0.55-1.3); GLUCOSE,RANDOM 231 mg/dL (74-106); MAGNESIUM 2.6 mg/dL (1.8-2.4); PHOSPHOROUS 4.2 mg/dL (2.5-4.9); POTASSIUM 4.6 mmol/L (3.5-5.1); SODIUM 139 mmol/L (136-145)
[2018-06-16] MEDS: ALBUTEROL SO4 2.5/IPRATROPIUM 0.5 INH SOL 3 ML VIAL.NEB. NEB SCH ×3 (07:45→16:42)
[2018-06-16 10:44] LABS: PLATELET COUNT 246 K/MM3 (134-434)
[2018-06-16] MEDS: methylPREDNISolone NA SUCC 40 MG/1 ML VIAL IVPUSH SCH (10:59)
[2018-06-16] MEDS: CHLORTHALIDONE 25 MG TABLET PO SCH (10:59)
[2018-06-16] MEDS: ENOXAPARIN NA (PORCINE) 40 MG/0.4 ML DISP.SYRIN SQ SCH (10:59)
[2018-06-16] MEDS: VERAPAMIL HCL 180 MG E.R. TABLET (FP) PO SCH (11:01)
--- NOTE | 2018-06-16 11:04 | PN ---
Progress Note (short form) - Note Progress Note: PULMONARY States breathing is improving, close to baseline. No further cough or wheezing. Vital Signs Period Temp Pulse Resp BP Sys/Augustine Pulse Ox Last 24 Hr 98.0 F-98.8 F 71-92 18-20 129-156/67-104 92 Gen: NAD at rest Heart: RRR Lung: decreased breath sounds at the bases, no wheezes Abd: soft, nontender Ext: no edema CBC, BMP 06/16/18 05:30 06/16/18 05:30 Active Medications Acetaminophen (Tylenol -) 650 mg PO Q4H PRN PRN Reason: FEVER Acetaminophen (Tylenol -) 325 mg PO Q8H PRN PRN Reason: PAIN LEVEL 6-10 Albuterol Sulfate (Ventolin 0.083% Nebulizer Soln -) 1 amp NEB Q4H PRN PRN Reason: SHORT OF BREATH/WHEEZING Last Admin: 06/14/18 15:32 Dose: 1 amp Albuterol/Ipratropium (Duoneb -) 1 amp NEB RQID [facility] Last Admin: 06/16/18 07:45 Dose: 1 amp Chlorthalidone (Hygroton -) 50 mg PO DAILY [facility] Last Admin: 06/15/18 09:14 Dose: 50 mg Enoxaparin Sodium (Lovenox -) 40 mg SQ DAILY [facility] Last Admin: 06/15/18 09:14 Dose: 40 mg Insulin Aspart (Novolog Vial Sliding Scale -) 1 vial SQ ACHS [facility]; Protocol Last Admin: 06/16/18 06:20 Dose: 4 units Methylprednisolone Sodium Succinate (Solu-Medrol -) 40 mg IVPUSH BID [facility] Last Admin: 06/15/18 21:30 Dose: 40 mg Oxycodone HCl (Roxicodone -) 10 mg PO Q8H PRN PRN Reason: PAIN LEVEL 6-10 Last Admin: 06/15/18 22:46 Dose: 10 mg Verapamil HCl (Calan Sr -) 180 mg PO BID [facility] Last Admin: 06/15/18 21:29 Dose: 180 mg A/P Acute Asthma Exacerbation Likely MATILDA/OHS Kyphoscoliosis HTN DM - can change steroids to PO prednisone 40mg daily and taper as outpt - inhaled bronchodilators - would discharge on high dose LABA/ICS - will need outpt PFTs, PSG - DVT prophylaxis - can d/c home from pulmonary standpoint
[2018-06-16 11:40] VITALS: BMI 50.4
--- NOTE | 2018-06-16 15:59 | DS ---
Physical Exam: SUBJECTIVE: Patient seen and examined OBJECTIVE: Vital Signs Period Temp Pulse Resp BP Sys/Augustine Pulse Ox Last 24 Hr 98.0 F-98.9 F 71-90 18-20 136-156/75-104 92-94 PHYSICAL EXAM GENERAL: The patient is awake, alert, and fully oriented, in no acute distress. HEAD: Normal with no signs of trauma. EYES: PERRL, extraocular movements intact, sclera anicteric, conjunctiva clear. ENT: Ears normal, nares patent, oropharynx clear without exudates, moist mucous membranes. NECK: Trachea midline, full range of motion, supple. LUNGS: Breath sounds equal, clear to auscultation bilaterally, no wheezes, no crackles, no accessory muscle use. HEART: Regular rate and rhythm, S1, S2 without murmur, rub or gallop. ABDOMEN: Soft, nontender, nondistended, normoactive bowel sounds, no guarding, no rebound, no hepatosplenomegaly, no masses. EXTREMITIES: 2+ pulses, warm, well-perfused, no edema. NEUROLOGICAL: Cranial nerves II through XII grossly intact. Normal speech, gait not observed. PSYCH: Normal mood, normal affect. SKIN: Warm, dry, normal turgor, no rashes or lesions noted. LABS Laboratory Results - last 24 hr 06/15/18 06/15/18 06/16/18 17:00 21:41 05:30 WBC 16.4 H RBC 4.95 Hgb 13.3 Hct 43.3 MCV 87.5 MCH 26.8 MCHC 30.6 L RDW 16.9 H Plt Count 246 MPV 10.6 Platelet Comment No clumping noted Sodium Potassium Chloride Carbon Dioxide Anion Gap BUN Creatinine Creat Clearance w eGFR POC Glucometer 366 265 Random Glucose Calcium Phosphorus Magnesium 06/16/18 06/16/18 06/16/18 05:30 06:17 11:09 WBC RBC Hgb Hct MCV MCH MCHC RDW Plt Count MPV Platelet Comment Sodium 139 Potassium 4.6 Chloride 95 L Carbon Dioxide 36 H Anion Gap 7 L BUN 18 Creatinine 0.9 Creat Clearance w eGFR > 60 POC Glucometer 207 142 Random Glucose 231 H Calcium 9.6 Phosphorus 4.2 Magnesium 2.6 H HOSPITAL COURSE: Date of Admission:06/14/18 Date of Discharge: 06/16/18 Discharge Summary Reason For Visit: SHORTNESS OF BREATH, HYPOXIA Current Active Problems Acquired central alveolar hypoventilation syndrome (Acute) Acute on chronic respiratory failure with hypoxia and hypercapnia (Acute) Diabetes type 2, controlled (Acute) HTN (hypertension) (Acute) Hypoxia (Acute) Kyphoscoliosis (Acute) Morbid obesity (Acute) Obesity hypoventilation syndrome (Acute) SOB (shortness of breath) (Acute) Sleep apnea (Acute) Condition: Stable - Instructions Diet, Activity, Other Instructions: You were admitted for an asthma exacerbation. We are starting you on a new inhaler. Please take as prescribed. Please rinse your mouth after taking your doses. This is to prevent a fungal infection in your mouth. We started you on steroids in the hospital. We are starting you on a short course of Prednisone to take at home. Please take the medication as prescribed. Please take Prednisone 40mg Please take Prednisone 30mg Please take Prednisone 20mg Please take Prednisone 10mg Please follow up with your Primary Care Physician within 1 week to discuss blood sugar management. Please follow up with your Private Duty Nurse within 1 week to get Pulmonary function tests and to get a formal evaluation for Sleep Apnea. Please return to the ED if you are experiencing shortness of breath at rest, chest pain, fever, coughing up blood, increase of weight of more than 2 pounds over three days. Referrals: Radha Guzman MD [Staff Physician] - - Home Medications Comprehensive Discharge Medication List: Ambulatory Orders Chlorthalidone 50 mg PO DAILY 01/04/15 Metformin HCl [Metformin HCl ER] 500 mg PO BID 01/04/15 Oxycodone HCl/Acetaminophen [Oxycodone-Acetaminophen 10-325] 1 each PO Q8H PRN MDD 3 06/13/18 Verapamil HCl [Verapamil ER] 180 mg PO BID 06/13/18 Albuterol Sulfate [Proair Respiclick] 1 puff NEB Q6H 06/14/18 Prednisone 10 mg PO ASDIR #34 tablet 06/16/18 - Discharge Referral Referred to [facility] No
--- NOTE | 2018-06-16 16:39 | PN ---
Teaching Attending Note Name of Resident: Margarito Rocha ATTENDING PHYSICIAN STATEMENT I saw and evaluated the patient. I reviewed the resident's note and discussed the case with the resident. I agree with the resident's findings and plan as documented. SUBJECTIVE: Patient is comfortable, needing home oxygen since o2 sat is 87%. Feels better on oxygen. OBJECTIVE: Vital Signs Temperature 98.9 F 06/16/18 14:21 Pulse Rate 86 06/16/18 15:05 Respiratory Rate 18 06/16/18 14:21 Blood Pressure 136/85 06/16/18 14:21 O2 Sat by Pulse Oximetry (%) 94 L 06/16/18 15:05 GENERAL: The patient is awake, alert, and fully oriented, in no acute distress. HEAD: Normal with no signs of trauma. EYES: PERRL, extraocular movements intact, sclera anicteric, conjunctiva clear. ENT: Ears normal, oropharynx clear without exudates, moist mucous membranes. NECK: Trachea midline, full range of motion, supple. LUNGS: decreasd BSs BL, decreased air entery BL, no wheezes, no crackles, no accessory muscle use. HEART: Regular rate and rhythm, S1, S2 without murmur, rub or gallop. ABDOMEN: abdomen is large, nontender, nondistended, BS positive, no guarding, no rebound, no masses appreciated. EXTREMITIES: 2+ pulses, warm, well-perfused, no edema. NEUROLOGICAL: Cranial nerves II through XII grossly intact. Normal speech, gait not observed. PSYCH: Normal mood, normal affect. SKIN: Warm, dry, normal turgor, no rashes or lesions noted. CBCD WBC 16.4 K/mm3 (4.0-10.0) H 06/16/18 05:30 RBC 4.95 M/mm3 (3.60-5.2) 06/16/18 05:30 Hgb 13.3 GM/dL (10.7-15.3) 06/16/18 05:30 Hct 43.3 % (32.4-45.2) 06/16/18 05:30 MCV 87.5 fl (80-96) 06/16/18 05:30 MCHC 30.6 g/dl (32.0-36.0) L 06/16/18 05:30 RDW 16.9 % (11.6-15.6) H 06/16/18 05:30 Plt Count 246 K/MM3 (134-434) 06/16/18 05:30 MPV 10.6 fl (7.5-11.1) 06/16/18 05:30 CMP Sodium 139 mmol/L (136-145) 06/16/18 05:30 Potassium 4.6 mmol/L (3.5-5.1) 06/16/18 05:30 Chloride 95 mmol/L (98-107) L 06/16/18 05:30 Carbon Dioxide 36 mmol/L (21-32) H 06/16/18 05:30 Anion Gap 7 MMOL/L (8-16) L 06/16/18 05:30 BUN 18 mg/dL (7-18) 06/16/18 05:30 Creatinine 0.9 mg/dL (0.55-1.3) 06/16/18 05:30 Creat Clearance w eGFR > 60 (>60) 06/16/18 05:30 Random Glucose 231 mg/dL (74-106) H 06/16/18 05:30 Calcium 9.6 mg/dL (8.5-10.1) 06/16/18 05:30 Total Bilirubin 0.5 mg/dL (0.2-1) 06/14/18 06:30 AST 11 U/L (15-37) L 06/14/18 06:30 ALT 18 U/L (13-61) 06/14/18 06:30 Alkaline Phosphatase 73 U/L (45-117) 06/14/18 06:30 Total Protein 6.8 g/dl (6.4-8.2) 06/14/18 06:30 Albumin 3.0 g/dl (3.4-5.0) L 06/14/18 06:30 CARDIAC ENZYMES Troponin I < 0.02 ng/ml (0.00-0.05) 06/13/18 12:40 Current Medications Generic Name Dose Route Start Last Admin Trade Name Freq PRN Reason Stop Dose Admin Acetaminophen 650 mg 06/13/18 16:06 Tylenol - PO Q4H PRN FEVER Acetaminophen 325 mg 06/13/18 22:29 Tylenol - PO Q8H PRN PAIN LEVEL 6-10 Albuterol Sulfate 1 amp 06/14/18 15:45 06/14/18 15:32 Ventolin 0.083% Nebulizer Soln - NEB 1 amp Q4H PRN Administration SHORT OF BREATH/WHEEZING Albuterol/Ipratropium 1 amp 06/14/18 16:00 06/16/18 11:07 Duoneb - NEB 1 amp RQID [facility] Administration Chlorthalidone 50 mg 06/14/18 10:00 06/16/18 10:59 Hygroton - PO 50 mg DAILY [facility] Administration Enoxaparin Sodium 40 mg 06/14/18 10:00 06/16/18 10:59 Lovenox - SQ 40 mg DAILY [facility] Administration Insulin Aspart 1 vial 06/13/18 16:30 06/16/18 11:53 Novolog Vial Sliding Scale - SQ Not Given ACHS [facility] Protocol Methylprednisolone Sodium Succinate 40 mg 06/15/18 22:00 06/16/18 10:59 Solu-Medrol - IVPUSH 40 mg BID [facility] Administration Oxycodone HCl 10 mg 06/13/18 22:29 06/15/18 22:46 Roxicodone - PO 10 mg Q8H PRN Administration PAIN LEVEL 6-10 Verapamil HCl 180 mg 06/13/18 22:00 06/16/18 11:01 Calan Sr - PO 180 mg BID [facility] Administration Home Medications Medication Instructions Recorded Chlorthalidone 50 mg PO DAILY 01/04/15 Metformin HCl [Metformin HCl ER] 500 mg PO BID 01/04/15 Verapamil HCl [Verapamil ER] 180 mg PO BID 06/13/18 Albuterol Sulfate [Proair 1 puff NEB Q6H 06/14/18 Respiclick] Albuterol 0.083% Nebulizer Mabel 1 amp NEB Q4H PRN amp 06/16/18 [Ventolin 0.083% Nebulizer Soln -] Budesonide/Formeterol Fumarate 2 inh IH BID #1 inhaler 06/16/18 [SYMBICORT 160/4.5mcg -] Prednisone 10 mg PO ASDIR #34 tablet 06/16/18 Verapamil HCl ER [Calan Sr -] 180 mg PO BID tablet.er 06/16/18 ASSESSMENT AND PLAN: 57 yo female with PMhx of asthma, morbid obesity, HTN, NIDDM, chronic back pain with opioid dependence, admitted with dyspnea. # Acute on chronic hypoxemic/hypercapneic respiratory failure with o2 sat.87% patient will be discharged home on oxygen. will discharge on taper dose prednisone for 12 days , follow with Pulmonary for MATILDA w/u and Pulmonary function test. s/p 3 days of azithromycin CTA, no PE noted #Hyperglycemia, NIDDM, continue home meds # HTN continue home verapaminl, chlorthalidone. #Morbid obesity diet and weight loss is recommended # Chronic back pain with opioid dependence continue Home oxycodone, dose confirmed in [employer] registry and with pharmacy Patient is being discharged on home oxygen.
[2018-06-16 18:59] VITALS: BP 149/91; PULSE 72; TEMP 98.2
== END 2018-06-16 18:45 | disposition home or self-care (01) | DRG 189 ==
LOC: JER 11:20 → JERBED 15:39 → J7W 19:30 → OBSVTOIN 06-14 13:50
PROVIDERS: ADMIT Hospitalist; ATTEND Internal Medicine
DX: J96.21 Acute and chronic respiratory failure with hypoxia (principal); Z68.43 Body mass index [BMI] 50.0-59.9, adult; F11.20 Opioid dependence, uncomplicated; J45.901 Unspecified asthma with (acute) exacerbation; I10 Essential (primary) hypertension; J96.22 Acute and chronic respiratory failure with hypercapnia; E66.01 Morbid (severe) obesity due to excess calories; G47.33 Obstructive sleep apnea (adult) (pediatric); M54.9 Dorsalgia, unspecified; E11.65 Type 2 diabetes mellitus with hyperglycemia; M41.9 Scoliosis, unspecified; J06.9 Acute upper respiratory infection, unspecified; Z87.891 Personal history of nicotine dependence
CPT/HCPCS: 36415; 36600; 71045-TC-FY; 71275-TC; 80048; 80053; 80307; 82803; 82962; 83036; 83735; 84100; 84484; 84703; 85025; 85027; 87804; 93005; 93010; 93306-TC; 94010; 94640; 94761; 99283-25; G0378

== ENCOUNTER 2021-04-25 09:23 | Inpatient (IN) | payer BC ==
[2021-04-25] MEDS ORDERED: ALBUTEROL SO4 2.5/IPRATROPIUM 0.5 INH SOL 3 ML VIAL.NEB. NEB ONE ×4 (09:41→10:07)
[2021-04-25] MEDS ORDERED: ALBUTEROL SO4 0.083% IH SOL 2.5 MG/3 ML VIAL.NEB. NEB ONE (09:42)
[2021-04-25] MEDS ORDERED: DEXAMETHASONE SOD PHOSPHATE 10 MG/1 ML VIAL IVPUSH ONE (09:43)
[2021-04-25] MEDS ORDERED: DEXAMETHASONE SOD PHOSPHATE 10 MG/1 ML VIAL ONE (10:07)
[2021-04-25 10:40] LABS: BASO % 0.9 % (0-2.0); HEMATOCRIT 43.5 % (32.4-45.2); HEMOGLOBIN 14.1 GM/dL (10.7-15.3); LYMPH % 21.1 % (8-40); MCH 28.4 pg (25.7-33.7); MCHC 32.5 g/dl (32.0-36.0); MEAN CELL VOLUME 87.5 fl (80-96); MEAN PLT VOLUME 10.1 fl (7.5-11.1); MONO % 7.8 % (3.8-10.2); NEUT % 66.2 % (42.8-82.8); PLATELET COUNT 263 10^3/uL (134-434); RBC 4.97 M/mm3 (3.60-5.2); RDW 17.1 % (11.6-15.6); VENOUS BASE EXCESS 12.7 mmol/L (-2-2); VENOUS PH 7.307 (7.310-7.410); WHITE BLOOD COUNT 9.5 K/mm3 (4.0-10.0)
[2021-04-25 10:53] LABS: VENOUS PCO2 88.9 mmHg (38-52)
[2021-04-25 11:02] LABS: CHLORIDE 91 mmol/L (98-107); SODIUM 135 mmol/L (136-145)
[2021-04-25 11:06] LABS: ALBUMIN 3.2 g/dl (3.4-5.0); ANION GAP 4 MMOL/L (8-16); BLOOD UREA NITROGEN 12.2 mg/dL (7-18); CALCIUM 9.2 mg/dL (8.5-10.1); CO2 39 mmol/L (21-32)
[2021-04-25 11:07] LABS: GLUCOSE,RANDOM 236 mg/dL (74-106)
[2021-04-25 11:09] LABS: SGPT/ALT 19 U/L (13-61)
[2021-04-25 11:10] LABS: CREATININE 0.9 mg/dL (0.55-1.3); SGOT/AST 12 U/L (15-37)
[2021-04-25 11:11] LABS: BILIRUBIN,TOTAL 0.5 mg/dL (0.2-1); TOT PROT 7.8 g/dl (6.4-8.2)
[2021-04-25 11:12] LABS: ALK PHOS 113 U/L (45-117)
[2021-04-25 11:14] LABS: N-TERMINAL BNP 100.4 pg/ml (5-125)
[2021-04-25] MEDS ORDERED: ACETAMINOPHEN 325 MG TABLET (FP) PO PRN (12:37)
[2021-04-25] MEDS ORDERED: ALBUTEROL SO4 2.5/IPRATROPIUM 0.5 INH SOL 3 ML VIAL.NEB. NEB SCH (14:00)
[2021-04-25 16:34] VITALS: BMI 52.4
[2021-04-25] MEDS: INSULIN SLIDING SCALE (NOVOLOG) 1 VIAL SQ SCH ×2 (16:49→21:52)
[2021-04-25] MEDS ORDERED: ALBUTEROL SO4 0.083% IH SOL 2.5 MG/3 ML VIAL.NEB. NEB PRN (17:21)
[2021-04-25] MEDS: methylPREDNISolone NA SUCC 125 MG/2 ML VIAL IVPB SCH (17:36)
[2021-04-25 19:19] LABS: ARTERIAL BLD GAS O2 SATURATION 93.3 % (95-98); ARTERIAL BLOOD GAS BASE EXCESS 9.2 mmol/L (-2-2); ARTERIAL BLOOD GAS PO2 73.8 mmHg (80-100); ARTERIAL BLOOD GAS pH 7.335 (7.350-7.450)
[2021-04-25 19:24] LABS: ALLENS TEST POSITIVE
[2021-04-25] MEDS ORDERED: FUROSEMIDE 40 MG/4 ML INJECTABLE VIAL IVPUSH ONE (19:59)
[2021-04-25] MEDS: oxyCODONE HCL 5 MG TABLET PO PRN (21:47)
[2021-04-25] MEDS: ENOXAPARIN NA (PORCINE) 40 MG/0.4 ML DISP.SYRIN SQ SCH (21:47)
[2021-04-25] MEDS: FLUTICASONE/UMECLIDIN/VILANTER(200-62.5-25 TRELEGY ELLIPTA) INAHLER IH SCH (21:54)
[2021-04-25] MEDS: INSULIN (LEVEMIR) 100 UNITS/ML UNITS SQ SCH (22:32)
[2021-04-25] MEDS: PANTOPRAZOLE SODIUM 40 MG VIAL IVPUSH SCH (22:32)
[2021-04-26] MEDS: methylPREDNISolone NA SUCC 125 MG/2 ML VIAL IVPB SCH (02:15)
[2021-04-26] MEDS: MELATONIN 5 MG TABLETS PO PRN (02:15)
[2021-04-26] MEDS: methylPREDNISolone NA SUCC 125 MG/2 ML VIAL IVPUSH SCH ×3 (02:54→17:19)
[2021-04-26] MEDS: INSULIN SLIDING SCALE (NOVOLOG) 1 VIAL SQ SCH ×4 (06:18→21:19)
[2021-04-26 07:44] LABS: HEMATOCRIT 41.8 % (32.4-45.2); HEMOGLOBIN 13.5 GM/dL (10.7-15.3); MCH 28.2 pg (25.7-33.7); MCHC 32.3 g/dl (32.0-36.0); MEAN CELL VOLUME 87.3 fl (80-96); MEAN PLT VOLUME 10.1 fl (7.5-11.1); PLATELET COUNT 234 10^3/uL (134-434); RBC 4.79 M/mm3 (3.60-5.2); RDW 16.5 % (11.6-15.6); WHITE BLOOD COUNT 12.1 K/mm3 (4.0-10.0)
[2021-04-26 08:10] LABS: ALBUMIN 2.9 g/dl (3.4-5.0); CALCIUM 9.2 mg/dL (8.5-10.1); MAGNESIUM 2.5 mg/dL (1.8-2.4)
[2021-04-26 08:13] LABS: CREATININE 0.8 mg/dL (0.55-1.3)
[2021-04-26 08:15] LABS: BILIRUBIN,TOTAL 0.5 mg/dL (0.2-1); TOT PROT 7.3 g/dl (6.4-8.2)
[2021-04-26] MEDS ORDERED: PATIENT'S OWN MEDICATION (NON-FORMULARY) (Lisinopril/Hydrochlorothiazide [Lisinopril-Hctz PO SCH (10:00)
[2021-04-26] MEDS: ASPIRIN 81 MG CHEWABLE TABLETS PO SCH (11:11)
[2021-04-26] MEDS: LISINOPRIL 20 MG TABLET PO SCH (11:12)
[2021-04-26] MEDS: amLODIPine BESYLATE 10 MG TABLET (FP) PO SCH (11:12)
[2021-04-26] MEDS: PANTOPRAZOLE SODIUM 40 MG VIAL IVPUSH SCH (11:12)
[2021-04-26] MEDS: ENOXAPARIN NA (PORCINE) 40 MG/0.4 ML DISP.SYRIN SQ SCH ×2 (11:12→21:19)
[2021-04-26] MEDS: HYDROCHLOROTHIAZIDE 25 MG TABLET (FP) PO SCH (11:12)
[2021-04-26] MEDS: FLUTICASONE/UMECLIDIN/VILANTER(200-62.5-25 TRELEGY ELLIPTA) INAHLER IH SCH (11:13)
[2021-04-26] MEDS: oxyCODONE HCL 5 MG TABLET PO PRN (19:17)
[2021-04-26] MEDS: ACETAMINOPHEN 325 MG TABLET (FP) PO PRN (19:17)
[2021-04-26] MEDS ORDERED: INSULIN (NOVOLOG) ASPART 100 UNITS/ML 10ML VIAL ONE (20:48)
[2021-04-26] MEDS: INSULIN (LEVEMIR) 100 UNITS/ML UNITS SQ SCH (21:18)
[2021-04-26] MEDS ORDERED: INSULIN (NOVOLOG) ASPART 100 UNITS/ML 10ML VIAL SQ ONE (23:21)
[2021-04-26] MEDS ORDERED: INSULIN SLIDING SCALE (NOVOLOG) 1 VIAL SQ SCH (23:30)
[2021-04-27] MEDS: MELATONIN 5 MG TABLETS PO PRN (01:50)
[2021-04-27] MEDS ORDERED: INSULIN SLIDING SCALE (NOVOLOG) 1 VIAL SQ SCH ×4 (02:00→16:30)
[2021-04-27] MEDS: methylPREDNISolone NA SUCC 125 MG/2 ML VIAL IVPUSH SCH ×2 (02:01→09:38)
[2021-04-27] MEDS: INSULIN SLIDING SCALE (NOVOLOG) 1 VIAL SQ SCH ×4 (02:02→21:58)
[2021-04-27 09:09] LABS: HEMOGLOBIN 13.6 GM/dL (10.7-15.3); MCH 27.4 pg (25.7-33.7); MCHC 31.5 g/dl (32.0-36.0); MEAN CELL VOLUME 86.9 fl (80-96); PLATELET COUNT 279 10^3/uL (134-434); RBC 4.95 M/mm3 (3.60-5.2); WHITE BLOOD COUNT 14.7 K/mm3 (4.0-10.0)
[2021-04-27] MEDS ORDERED: PT OWN MED DRAWER 7, Y5N ONE ×2 (09:16→21:51)
[2021-04-27 09:26] LABS: CALCIUM 9.4 mg/dL (8.5-10.1)
[2021-04-27 09:27] LABS: BLOOD UREA NITROGEN 17.5 mg/dL (7-18)
[2021-04-27 09:30] LABS: CREATININE 0.8 mg/dL (0.55-1.3)
[2021-04-27] MEDS: PANTOPRAZOLE SODIUM 40 MG VIAL IVPUSH SCH (09:36)
[2021-04-27] MEDS: LISINOPRIL 20 MG TABLET PO SCH (09:36)
[2021-04-27] MEDS: ASPIRIN 81 MG CHEWABLE TABLETS PO SCH (09:36)
[2021-04-27] MEDS: ENOXAPARIN NA (PORCINE) 40 MG/0.4 ML DISP.SYRIN SQ SCH ×2 (09:36→21:59)
[2021-04-27] MEDS: amLODIPine BESYLATE 10 MG TABLET (FP) PO SCH (09:37)
[2021-04-27] MEDS: HYDROCHLOROTHIAZIDE 25 MG TABLET (FP) PO SCH (09:38)
[2021-04-27] MEDS: FLUTICASONE/UMECLIDIN/VILANTER(200-62.5-25 TRELEGY ELLIPTA) INAHLER IH SCH (09:41)
[2021-04-27] MEDS ORDERED: INSULIN (LEVEMIR) 100 UNITS/ML UNITS SQ SCH (10:00)
[2021-04-27] MEDS: AZITHROMYCIN 250 MG TABLET PO SCH (12:03)
[2021-04-27] MEDS: ACETAMINOPHEN 325 MG TABLET (FP) PO PRN (14:25)
[2021-04-27] MEDS: oxyCODONE HCL 5 MG TABLET PO PRN (14:25)
[2021-04-27] MEDS: metFORMIN HCL 500 MG TABLET (FP) PO SCH (16:32)
[2021-04-27] MEDS: methylPREDNISolone NA SUCC 40 MG/1 ML VIAL IVPUSH SCH (17:32)
[2021-04-27] MEDS: INSULIN (LEVEMIR) 100 UNITS/ML UNITS SQ SCH (21:59)
[2021-04-28] MEDS: ACETAMINOPHEN 325 MG TABLET (FP) PO PRN (00:26)
[2021-04-28] MEDS: oxyCODONE HCL 5 MG TABLET PO PRN (00:26)
[2021-04-28] MEDS: methylPREDNISolone NA SUCC 40 MG/1 ML VIAL IVPUSH SCH ×3 (01:11→17:11)
[2021-04-28] MEDS: INSULIN SLIDING SCALE (NOVOLOG) 1 VIAL SQ SCH ×4 (06:26→21:51)
[2021-04-28] MEDS: metFORMIN HCL 500 MG TABLET (FP) PO SCH ×2 (06:26→16:29)
[2021-04-28] MEDS: INSULIN (LEVEMIR) 100 UNITS/ML UNITS SQ SCH ×2 (06:26→21:20)
[2021-04-28 07:46] LABS: HEMATOCRIT 41.9 % (32.4-45.2); HEMOGLOBIN 13.3 GM/dL (10.7-15.3); MCH 27.6 pg (25.7-33.7); MCHC 31.8 g/dl (32.0-36.0); MEAN CELL VOLUME 86.7 fl (80-96); MEAN PLT VOLUME 10.2 fl (7.5-11.1); PLATELET COUNT 267 10^3/uL (134-434); RBC 4.83 M/mm3 (3.60-5.2); RDW 16.5 % (11.6-15.6); WHITE BLOOD COUNT 13.4 K/mm3 (4.0-10.0)
[2021-04-28 07:57] LABS: CALCIUM 9.5 mg/dL (8.5-10.1)
[2021-04-28 07:58] LABS: BLOOD UREA NITROGEN 19.8 mg/dL (7-18)
[2021-04-28 08:01] LABS: CREATININE 0.8 mg/dL (0.55-1.3); PHOSPHOROUS 3.9 mg/dL (2.5-4.9)
[2021-04-28] MEDS: amLODIPine BESYLATE 10 MG TABLET (FP) PO SCH (09:13)
[2021-04-28] MEDS: AZITHROMYCIN 250 MG TABLET PO SCH (09:13)
[2021-04-28] MEDS: PANTOPRAZOLE SODIUM 40 MG VIAL IVPUSH SCH (09:13)
[2021-04-28] MEDS: ASPIRIN 81 MG CHEWABLE TABLETS PO SCH (09:13)
[2021-04-28] MEDS: HYDROCHLOROTHIAZIDE 25 MG TABLET (FP) PO SCH (09:13)
[2021-04-28] MEDS: ENOXAPARIN NA (PORCINE) 40 MG/0.4 ML DISP.SYRIN SQ SCH ×2 (09:13→21:19)
[2021-04-28] MEDS: FLUTICASONE/UMECLIDIN/VILANTER(200-62.5-25 TRELEGY ELLIPTA) INAHLER IH SCH (09:14)
[2021-04-28] MEDS: LISINOPRIL 20 MG TABLET PO SCH (09:14)
[2021-04-28] MEDS ORDERED: INSULIN (NOVOLOG) ASPART 100 UNITS/ML 10ML VIAL ONE (21:50)
[2021-04-29] MEDS: MELATONIN 5 MG TABLETS PO PRN (00:13)
[2021-04-29] MEDS: methylPREDNISolone NA SUCC 40 MG/1 ML VIAL IVPUSH SCH ×3 (01:13→21:57)
[2021-04-29] MEDS ORDERED: oxyCODONE HCL 5 MG TABLET PO ONE ×2 (02:22→23:41)
[2021-04-29] MEDS: INSULIN SLIDING SCALE (NOVOLOG) 1 VIAL SQ SCH ×4 (06:49→21:38)
[2021-04-29] MEDS: metFORMIN HCL 500 MG TABLET (FP) PO SCH ×2 (06:51→16:38)
[2021-04-29] MEDS: INSULIN (LEVEMIR) 100 UNITS/ML UNITS SQ SCH ×2 (06:52→21:38)
[2021-04-29 07:20] LABS: HEMATOCRIT 44.9 % (32.4-45.2); HEMOGLOBIN 14.6 GM/dL (10.7-15.3); MCHC 32.5 g/dl (32.0-36.0); MEAN CELL VOLUME 86.2 fl (80-96); PLATELET COUNT 296 10^3/uL (134-434); RBC 5.21 M/mm3 (3.60-5.2); RDW 16.3 % (11.6-15.6)
[2021-04-29 07:34] LABS: BLOOD UREA NITROGEN 22.5 mg/dL (7-18); CALCIUM 9.6 mg/dL (8.5-10.1)
[2021-04-29] MEDS: PANTOPRAZOLE SODIUM 40 MG VIAL IVPUSH SCH (09:50)
[2021-04-29] MEDS: AZITHROMYCIN 250 MG TABLET PO SCH (09:50)
[2021-04-29] MEDS: HYDROCHLOROTHIAZIDE 25 MG TABLET (FP) PO SCH (09:50)
[2021-04-29] MEDS: LISINOPRIL 20 MG TABLET PO SCH (09:50)
[2021-04-29] MEDS: ASPIRIN 81 MG CHEWABLE TABLETS PO SCH (09:50)
[2021-04-29] MEDS: amLODIPine BESYLATE 10 MG TABLET (FP) PO SCH (09:50)
[2021-04-29] MEDS: ENOXAPARIN NA (PORCINE) 40 MG/0.4 ML DISP.SYRIN SQ SCH ×2 (09:51→21:38)
[2021-04-29] MEDS: FLUTICASONE/UMECLIDIN/VILANTER(200-62.5-25 TRELEGY ELLIPTA) INAHLER IH SCH (09:51)
[2021-04-30] MEDS: INSULIN SLIDING SCALE (NOVOLOG) 1 VIAL SQ SCH ×4 (06:35→21:39)
[2021-04-30] MEDS: metFORMIN HCL 500 MG TABLET (FP) PO SCH ×2 (06:35→16:53)
[2021-04-30] MEDS: INSULIN (LEVEMIR) 100 UNITS/ML UNITS SQ SCH (06:35)
[2021-04-30 08:08] LABS: HEMATOCRIT 45.6 % (32.4-45.2); HEMOGLOBIN 14.3 GM/dL (10.7-15.3); MCHC 31.5 g/dl (32.0-36.0); MEAN CELL VOLUME 85.8 fl (80-96); MEAN PLT VOLUME 9.8 fl (7.5-11.1); PLATELET COUNT 248 10^3/uL (134-434); RBC 5.31 M/mm3 (3.60-5.2); RDW 16.8 % (11.6-15.6); WHITE BLOOD COUNT 13.6 K/mm3 (4.0-10.0)
[2021-04-30 08:20] LABS: CHLORIDE 97 mmol/L (98-107); SODIUM 140 mmol/L (136-145)
[2021-04-30 08:27] LABS: BLOOD UREA NITROGEN 20.6 mg/dL (7-18); CALCIUM 9.6 mg/dL (8.5-10.1); GLUCOSE,RANDOM 126 mg/dL (74-106); MAGNESIUM 2.6 mg/dL (1.8-2.4)
[2021-04-30 08:31] LABS: CREATININE 0.9 mg/dL (0.55-1.3); PHOSPHOROUS 4.9 mg/dL (2.5-4.9)
[2021-04-30 08:46] LABS: ANION GAP -2 MMOL/L (8-16); CO2 > 45 mmol/L (21-32)
[2021-04-30] MEDS: PANTOPRAZOLE SODIUM 40 MG VIAL IVPUSH SCH (10:26)
[2021-04-30] MEDS: LISINOPRIL 20 MG TABLET PO SCH (10:26)
[2021-04-30] MEDS: amLODIPine BESYLATE 10 MG TABLET (FP) PO SCH (10:26)
[2021-04-30] MEDS: ASPIRIN 81 MG CHEWABLE TABLETS PO SCH (10:26)
[2021-04-30] MEDS: FLUTICASONE/UMECLIDIN/VILANTER(200-62.5-25 TRELEGY ELLIPTA) INAHLER IH SCH (10:27)
[2021-04-30] MEDS: methylPREDNISolone NA SUCC 40 MG/1 ML VIAL IVPUSH SCH ×2 (10:27→21:39)
[2021-04-30] MEDS: ENOXAPARIN NA (PORCINE) 40 MG/0.4 ML DISP.SYRIN SQ SCH ×2 (10:27→21:40)
[2021-04-30] MEDS: HYDROCHLOROTHIAZIDE 25 MG TABLET (FP) PO SCH (10:27)
[2021-04-30] MEDS ORDERED: INSULIN (NOVOLOG) ASPART 100 UNITS/ML 10ML VIAL ONE ×2 (11:53→20:56)
[2021-04-30] MEDS ORDERED: oxyCODONE HCL 5 MG TABLET PO ONE (21:00)
[2021-04-30] MEDS ORDERED: PT OWN MED DRAWER 7, Y5N ONE (21:50)
[2021-05-01] MEDS ORDERED: PT OWN MED DRAWER 7, Y5N ONE ×2 (06:23→17:20)
[2021-05-01] MEDS: metFORMIN HCL 500 MG TABLET (FP) PO SCH ×2 (06:36→17:25)
[2021-05-01] MEDS: GLIMEPIRIDE 4 MG TABLET PO SCH ×2 (06:36→18:45)
[2021-05-01] MEDS: INSULIN SLIDING SCALE (NOVOLOG) 1 VIAL SQ SCH ×5 (06:36→22:10)
[2021-05-01 07:33] LABS: HEMATOCRIT 45.8 % (32.4-45.2); HEMOGLOBIN 14.4 GM/dL (10.7-15.3); MCHC 31.4 g/dl (32.0-36.0); MEAN CELL VOLUME 86.1 fl (80-96); MEAN PLT VOLUME 9.9 fl (7.5-11.1); PLATELET COUNT 218 10^3/uL (134-434); RBC 5.33 M/mm3 (3.60-5.2); RDW 16.3 % (11.6-15.6); WHITE BLOOD COUNT 13.3 K/mm3 (4.0-10.0)
[2021-05-01 07:49] LABS: CHLORIDE 98 mmol/L (98-107); SODIUM 143 mmol/L (136-145)
[2021-05-01 07:50] LABS: BLOOD UREA NITROGEN 19.4 mg/dL (7-18); CALCIUM 9.7 mg/dL (8.5-10.1)
[2021-05-01 07:51] LABS: GLUCOSE,RANDOM 126 mg/dL (74-106)
[2021-05-01 07:54] LABS: CREATININE 0.8 mg/dL (0.55-1.3)
[2021-05-01 07:55] LABS: ANION GAP 0 MMOL/L (8-16); CO2 > 45 mmol/L (21-32)
[2021-05-01] MEDS: HYDROCHLOROTHIAZIDE 25 MG TABLET (FP) PO SCH (10:07)
[2021-05-01] MEDS: ASPIRIN 81 MG CHEWABLE TABLETS PO SCH (10:07)
[2021-05-01] MEDS: amLODIPine BESYLATE 10 MG TABLET (FP) PO SCH (10:07)
[2021-05-01] MEDS: ENOXAPARIN NA (PORCINE) 40 MG/0.4 ML DISP.SYRIN SQ SCH ×2 (10:07→21:05)
[2021-05-01] MEDS: LISINOPRIL 20 MG TABLET PO SCH (10:07)
[2021-05-01] MEDS: methylPREDNISolone NA SUCC 40 MG/1 ML VIAL IVPUSH SCH ×2 (10:07→21:05)
[2021-05-01] MEDS: PANTOPRAZOLE SODIUM 40 MG VIAL IVPUSH SCH (10:07)
[2021-05-01] MEDS: FLUTICASONE/UMECLIDIN/VILANTER(200-62.5-25 TRELEGY ELLIPTA) INAHLER IH SCH (10:08)
[2021-05-01] MEDS ORDERED: oxyCODONE HCL 5 MG TABLET PO ONE (20:39)
[2021-05-01] MEDS: MELATONIN 5 MG TABLETS PO PRN (21:05)
[2021-05-02 01:30] LABS: CHOLESTEROL 187 mg/dL (50-200); TRIGLYCERIDES 96 mg/dL (0-150)
[2021-05-02 01:31] LABS: LDL CHOLESTEROL (ONLY SJRH) 101 mg/dL (5-100)
[2021-05-02 01:33] LABS: HDL CHOLESTEROL 61 mg/dL (40-60)
[2021-05-02] MEDS: INSULIN SLIDING SCALE (NOVOLOG) 1 VIAL SQ SCH ×3 (06:19→16:33)
[2021-05-02] MEDS: metFORMIN HCL 500 MG TABLET (FP) PO SCH ×2 (06:20→16:32)
[2021-05-02] MEDS ORDERED: GLIMEPIRIDE 2 MG TABLET PO SCH (07:00)
[2021-05-02] MEDS ORDERED: GLIMEPIRIDE 4 MG TABLET PO SCH (07:00)
[2021-05-02] MEDS ORDERED: INSULIN (NOVOLOG) ASPART 100 UNITS/ML 10ML VIAL ONE ×2 (08:38→11:19)
[2021-05-02] MEDS: PANTOPRAZOLE SODIUM 40 MG VIAL IVPUSH SCH (09:44)
[2021-05-02] MEDS: amLODIPine BESYLATE 10 MG TABLET (FP) PO SCH (09:46)
[2021-05-02] MEDS: HYDROCHLOROTHIAZIDE 25 MG TABLET (FP) PO SCH (09:46)
[2021-05-02] MEDS: ENOXAPARIN NA (PORCINE) 40 MG/0.4 ML DISP.SYRIN SQ SCH (09:46)
[2021-05-02] MEDS: LISINOPRIL 20 MG TABLET PO SCH (09:46)
[2021-05-02] MEDS: ASPIRIN 81 MG CHEWABLE TABLETS PO SCH (09:46)
[2021-05-02] MEDS: methylPREDNISolone NA SUCC 40 MG/1 ML VIAL IVPUSH SCH (09:46)
[2021-05-02] MEDS: FLUTICASONE/UMECLIDIN/VILANTER(200-62.5-25 TRELEGY ELLIPTA) INAHLER IH SCH (09:47)
[2021-05-02] MEDS ORDERED: predniSONE 20 MG TABLET (UD) PO SCH (12:45)
[2021-05-02 14:09] VITALS: BP 134/75; TEMP 98.3
[2021-05-02 15:34] VITALS: PULSE 82
== END 2021-05-02 17:57 | disposition home or self-care (01) | DRG 190 ==
LOC: JER 09:23 → JERBED 11:57 → J7W 15:56
PROVIDERS: ADMIT Internal Medicine; ATTEND Internal Medicine
DX: J44.1 Chronic obstructive pulmonary disease with (acute) exacerbation (principal); J96.22 Acute and chronic respiratory failure with hypercapnia; J96.21 Acute and chronic respiratory failure with hypoxia; E87.2 Acidosis; E87.3 Alkalosis; Z68.43 Body mass index [BMI] 50.0-59.9, adult; I10 Essential (primary) hypertension; E11.9 Type 2 diabetes mellitus without complications; G47.33 Obstructive sleep apnea (adult) (pediatric); E66.01 Morbid (severe) obesity due to excess calories; Z79.84 Long term (current) use of oral hypoglycemic drugs; I27.20 Pulmonary hypertension, unspecified; I25.10 Atherosclerotic heart disease of native coronary artery without angina pectoris; F41.9 Anxiety disorder, unspecified; M41.9 Scoliosis, unspecified
CPT/HCPCS: 36415; 36600; 71045-TC-FY; 80048; 80053; 80061; 82550; 82803; 82962; 83036; 83735; 83880; 84100; 84443; 84484; 85025; 85027; 86738; 87899; 93005; 93010; 93306-TC; 93970-TC; 94660; 94761; 99285-25; C9803; J1100; U0003; U0005

== ENCOUNTER 2021-12-21 11:53 | Inpatient (IN) | payer BC ==
[2021-12-21] MEDS ORDERED: ALBUTEROL SO4 2.5/IPRATROPIUM 0.5 INH SOL 3 ML VIAL.NEB. NEB ONE (12:14)
[2021-12-21] MEDS ORDERED: methylPREDNISolone NA SUCC 125 MG/2 ML VIAL IVPUSH ONE (12:16)
[2021-12-21] MEDS: ALBUTEROL SO4 2.5/IPRATROPIUM 0.5 INH SOL 3 ML VIAL.NEB. NEB SCH ×4 (12:20→13:07)
[2021-12-21] MEDS ORDERED: methylPREDNISolone NA SUCC 125 MG/2 ML VIAL ONE (12:28)
[2021-12-21] MEDS ORDERED: CEFTRIAXONE 1,000 MG in DEXTROSE 5%-WATER - 50 ML IVPB ONE (12:39)
[2021-12-21] MEDS ORDERED: CEFTRIAXONE 1 GM/50 ML BAG ONE (12:59)
[2021-12-21 13:12] LABS: BASO % 0.5 % (0-2.0); EOS % 0.2 % (0-4.5); HEMATOCRIT 39.9 % (32.4-45.2); HEMOGLOBIN 12.9 GM/dL (10.7-15.3); LYMPH % 15.5 % (8-40); MCH 28.5 pg (25.7-33.7); MCHC 32.2 g/dl (32.0-36.0); MEAN CELL VOLUME 88.5 fl (80-96); MEAN PLT VOLUME 9.3 fl (7.5-11.1); MONO % 7.7 % (3.8-10.2); NEUT % 76.1 % (42.8-82.8); PLATELET COUNT 212 10^3/uL (134-434); RBC 4.51 M/mm3 (3.60-5.2); RDW 17.2 % (11.6-15.6); WHITE BLOOD COUNT 10.6 K/mm3 (4.0-10.0)
[2021-12-21 13:28] LABS: ALBUMIN 3.4 g/dl (3.4-5.0)
[2021-12-21 13:31] LABS: CREATININE 0.7 mg/dL (0.55-1.3)
[2021-12-21 13:33] LABS: BILIRUBIN,TOTAL 1.1 mg/dL (0.2-1); TOT PROT 7.2 g/dl (6.4-8.2)
[2021-12-21 14:02] LABS: MAGNESIUM 2.6 mg/dL (1.8-2.4)
[2021-12-21 14:11] LABS: N-TERMINAL BNP 583.5 pg/ml (5-125)
[2021-12-21 15:03] LABS: ALLENS TEST POSITIVE; ARTERIAL BLD GAS O2 SATURATION 92.5 % (95-98); ARTERIAL BLOOD GAS BASE EXCESS 6.2 mmol/L (-2-2); ARTERIAL BLOOD GAS pH 7.376 (7.350-7.450)
[2021-12-21] MEDS ORDERED: AZITHROMYCIN IVPB 500 MG in DEXTROSE 5%-WATER - 250 ML IVPB ONE (15:23)
[2021-12-21] MEDS ORDERED: AZITHROMYCIN IVPB 500 MG/250 ML BAG IVPB ONE (15:47)
[2021-12-21] MEDS ORDERED: amLODIPine BESYLATE 10 MG TABLET (FP) PO ONE ×2 (17:59→23:58)
[2021-12-21] MEDS ORDERED: amLODIPine BESYLATE 10 MG TABLET (FP) ONE (18:17)
[2021-12-21] MEDS: methylPREDNISolone NA SUCC 40 MG/1 ML VIAL IVPUSH SCH (21:57)
[2021-12-21] MEDS: INSULIN (NOVOLOG) ASPART 100 UNITS/ML 10ML VIAL SQ SCH (23:50)
[2021-12-22] MEDS ORDERED: LISINOPRIL 20 MG TABLET PO ONE
[2021-12-22 00:29] VITALS: BMI 50.7
[2021-12-22] MEDS: HEPARIN NA (PORCINE) 5,000 UNITS/ML 1ML VIAL SQ SCH ×3 (02:54→17:22)
[2021-12-22] MEDS: methylPREDNISolone NA SUCC 40 MG/1 ML VIAL IVPUSH SCH ×4 (02:54→21:34)
[2021-12-22] MEDS: INSULIN (NOVOLOG) ASPART 100 UNITS/ML 10ML VIAL SQ SCH ×4 (06:41→21:34)
[2021-12-22] MEDS: metFORMIN HCL 500 MG TABLET (FP) PO SCH ×2 (07:29→17:21)
[2021-12-22 07:47] LABS: BASO % 0.3 % (0-2.0); HEMOGLOBIN 13.6 GM/dL (10.7-15.3); LYMPH % 8.6 % (8-40); MCH 27.9 pg (25.7-33.7); MCHC 30.9 g/dl (32.0-36.0); MEAN CELL VOLUME 90.2 fl (80-96); MONO % 2.6 % (3.8-10.2); NEUT % 88.5 % (42.8-82.8); PLATELET COUNT 240 10^3/uL (134-434); RBC 4.87 M/mm3 (3.60-5.2); RDW 17.2 % (11.6-15.6); WHITE BLOOD COUNT 14.8 K/mm3 (4.0-10.0)
[2021-12-22 07:56] LABS: ALBUMIN 3.5 g/dl (3.4-5.0); CALCIUM 9.6 mg/dL (8.5-10.1)
[2021-12-22 07:57] LABS: BLOOD UREA NITROGEN 12.5 mg/dL (7-18); MAGNESIUM 2.8 mg/dL (1.8-2.4)
[2021-12-22 07:59] LABS: CREATININE 0.8 mg/dL (0.55-1.3)
[2021-12-22 08:01] LABS: TOT PROT 7.6 g/dl (6.4-8.2)
[2021-12-22] MEDS ORDERED: cefTRIAXone SODIUM 1 GM VIAL ONE (09:37)
[2021-12-22] MEDS ORDERED: DEXTROSE 5%-WATER - 50 ML IVPB ONE (09:38)
[2021-12-22] MEDS: LISINOPRIL 20 MG TABLET PO SCH (09:55)
[2021-12-22] MEDS: amLODIPine BESYLATE 10 MG TABLET (FP) PO SCH (09:55)
[2021-12-22] MEDS: ASPIRIN 81 MG CHEWABLE TABLETS PO SCH (09:55)
[2021-12-22] MEDS: CEFTRIAXONE 1 GM in DEXTROSE 5%-WATER - 50 ML IVPB SCH (09:56)
[2021-12-22] MEDS ORDERED: FUROSEMIDE 40 MG/4 ML INJECTABLE VIAL IVPUSH ONE (12:29)
[2021-12-22] MEDS ORDERED: FUROSEMIDE 40 MG/4 ML INJECTABLE VIAL ONE (14:56)
[2021-12-22] MEDS: AZITHROMYCIN 250 MG TABLET PO SCH (14:59)
[2021-12-22] MEDS: FLUTICASONE/UMECLIDIN/VILANTER(200-62.5-25 TRELEGY ELLIPTA) INAHLER IH SCH (15:12)
[2021-12-22] MEDS: ALBUTEROL SO4 2.5/IPRATROPIUM 0.5 INH SOL 3 ML VIAL.NEB. NEB SCH ×2 (15:18→20:32)
[2021-12-23] MEDS: HEPARIN NA (PORCINE) 5,000 UNITS/ML 1ML VIAL SQ SCH ×3 (03:35→17:34)
[2021-12-23] MEDS: methylPREDNISolone NA SUCC 40 MG/1 ML VIAL IVPUSH SCH ×4 (03:35→22:09)
[2021-12-23] MEDS: metFORMIN HCL 500 MG TABLET (FP) PO SCH ×2 (06:27→17:32)
[2021-12-23] MEDS: EMPAGLIFLOZIN 25 MG PO SCH (06:28)
[2021-12-23] MEDS: INSULIN (NOVOLOG) ASPART 100 UNITS/ML 10ML VIAL SQ SCH ×4 (06:29→22:12)
[2021-12-23] MEDS: ALBUTEROL SO4 2.5/IPRATROPIUM 0.5 INH SOL 3 ML VIAL.NEB. NEB SCH ×4 (08:45→20:10)
[2021-12-23] MEDS ORDERED: cefTRIAXone SODIUM 1 GM VIAL ONE (09:29)
[2021-12-23] MEDS ORDERED: DEXTROSE 5%-WATER - 50 ML IVPB ONE (09:29)
[2021-12-23] MEDS: LISINOPRIL 20 MG TABLET PO SCH (10:02)
[2021-12-23] MEDS: AZITHROMYCIN 250 MG TABLET PO SCH (10:03)
[2021-12-23] MEDS: amLODIPine BESYLATE 10 MG TABLET (FP) PO SCH (10:03)
[2021-12-23] MEDS: ASPIRIN 81 MG CHEWABLE TABLETS PO SCH (10:03)
[2021-12-23] MEDS: CEFTRIAXONE 1 GM in DEXTROSE 5%-WATER - 50 ML IVPB SCH (10:04)
[2021-12-23] MEDS: FLUTICASONE/UMECLIDIN/VILANTER(200-62.5-25 TRELEGY ELLIPTA) INAHLER IH SCH (10:04)
[2021-12-23 15:09] LABS: SARS-CoV-2 NAA Not Detected (Not Detected)
[2021-12-24] MEDS: methylPREDNISolone NA SUCC 40 MG/1 ML VIAL IVPUSH SCH (04:00)
[2021-12-24] MEDS: HEPARIN NA (PORCINE) 5,000 UNITS/ML 1ML VIAL SQ SCH ×3 (04:00→17:21)
[2021-12-24] MEDS: metFORMIN HCL 500 MG TABLET (FP) PO SCH ×2 (06:38→16:55)
[2021-12-24] MEDS: INSULIN (NOVOLOG) ASPART 100 UNITS/ML 10ML VIAL SQ SCH ×4 (06:40→21:13)
[2021-12-24] MEDS: EMPAGLIFLOZIN 25 MG PO SCH (06:43)
[2021-12-24] MEDS: ALBUTEROL SO4 2.5/IPRATROPIUM 0.5 INH SOL 3 ML VIAL.NEB. NEB SCH ×4 (07:30→20:44)
[2021-12-24] MEDS ORDERED: cefTRIAXone SODIUM 1 GM VIAL ONE (09:18)
[2021-12-24] MEDS ORDERED: DEXTROSE 5%-WATER - 50 ML IVPB ONE (09:18)
[2021-12-24] MEDS: predniSONE 10 MG TABLET (UD) PO SCH ×2 (09:28→21:10)
[2021-12-24] MEDS: LISINOPRIL 20 MG TABLET PO SCH (09:28)
[2021-12-24] MEDS: AZITHROMYCIN 250 MG TABLET PO SCH (09:29)
[2021-12-24] MEDS: CEFTRIAXONE 1 GM in DEXTROSE 5%-WATER - 50 ML IVPB SCH (09:29)
[2021-12-24] MEDS: ASPIRIN 81 MG CHEWABLE TABLETS PO SCH (09:29)
[2021-12-24] MEDS: amLODIPine BESYLATE 10 MG TABLET (FP) PO SCH (09:29)
[2021-12-24] MEDS: FLUTICASONE/UMECLIDIN/VILANTER(200-62.5-25 TRELEGY ELLIPTA) INAHLER IH SCH (09:30)
[2021-12-25] MEDS ORDERED: ACETAMINOPHEN 325 MG TABLET (FP) PO ONE (01:50)
[2021-12-25] MEDS: HEPARIN NA (PORCINE) 5,000 UNITS/ML 1ML VIAL SQ SCH ×3 (01:59→17:00)
[2021-12-25] MEDS: metFORMIN HCL 500 MG TABLET (FP) PO SCH ×2 (06:24→16:50)
[2021-12-25] MEDS: EMPAGLIFLOZIN 25 MG PO SCH (06:27)
[2021-12-25] MEDS: INSULIN (NOVOLOG) ASPART 100 UNITS/ML 10ML VIAL SQ SCH ×4 (06:28→21:05)
[2021-12-25] MEDS: ALBUTEROL SO4 2.5/IPRATROPIUM 0.5 INH SOL 3 ML VIAL.NEB. NEB SCH ×4 (07:15→20:25)
[2021-12-25] MEDS ORDERED: DEXTROSE 5%-WATER - 50 ML IVPB ONE (08:39)
[2021-12-25] MEDS ORDERED: cefTRIAXone SODIUM 1 GM VIAL ONE (08:39)
[2021-12-25] MEDS: predniSONE 10 MG TABLET (UD) PO SCH ×2 (09:39→21:04)
[2021-12-25] MEDS: CEFTRIAXONE 1 GM in DEXTROSE 5%-WATER - 50 ML IVPB SCH (09:40)
[2021-12-25] MEDS: LISINOPRIL 20 MG TABLET PO SCH (09:40)
[2021-12-25] MEDS: AZITHROMYCIN 250 MG TABLET PO SCH (09:40)
[2021-12-25] MEDS: amLODIPine BESYLATE 10 MG TABLET (FP) PO SCH (09:40)
[2021-12-25] MEDS: ASPIRIN 81 MG CHEWABLE TABLETS PO SCH (09:40)
[2021-12-25] MEDS: FLUTICASONE/UMECLIDIN/VILANTER(200-62.5-25 TRELEGY ELLIPTA) INAHLER IH SCH (09:41)
[2021-12-26] MEDS: HEPARIN NA (PORCINE) 5,000 UNITS/ML 1ML VIAL SQ SCH ×2 (01:02→09:54)
[2021-12-26] MEDS: INSULIN (NOVOLOG) ASPART 100 UNITS/ML 10ML VIAL SQ SCH ×3 (06:11→16:59)
[2021-12-26] MEDS: EMPAGLIFLOZIN 25 MG PO SCH (06:11)
[2021-12-26] MEDS: metFORMIN HCL 500 MG TABLET (FP) PO SCH ×2 (06:11→16:59)
[2021-12-26] MEDS: ALBUTEROL SO4 2.5/IPRATROPIUM 0.5 INH SOL 3 ML VIAL.NEB. NEB SCH ×3 (07:35→15:35)
[2021-12-26] MEDS ORDERED: DEXTROSE 5%-WATER - 50 ML IVPB ONE (09:00)
[2021-12-26] MEDS ORDERED: cefTRIAXone SODIUM 1 GM VIAL ONE (09:00)
[2021-12-26] MEDS: CEFTRIAXONE 1 GM in DEXTROSE 5%-WATER - 50 ML IVPB SCH (09:52)
[2021-12-26] MEDS: predniSONE 10 MG TABLET (UD) PO SCH (09:53)
[2021-12-26] MEDS: ASPIRIN 81 MG CHEWABLE TABLETS PO SCH (09:53)
[2021-12-26] MEDS: LISINOPRIL 20 MG TABLET PO SCH (09:53)
[2021-12-26] MEDS: amLODIPine BESYLATE 10 MG TABLET (FP) PO SCH (09:53)
[2021-12-26] MEDS: FLUTICASONE/UMECLIDIN/VILANTER(200-62.5-25 TRELEGY ELLIPTA) INAHLER IH SCH (09:54)
[2021-12-26 14:04] VITALS: BP 132/87; PULSE 74; TEMP 98.5
== END 2021-12-26 17:01 | disposition home or self-care (01) | DRG 291 ==
LOC: JER 11:53 → JERBED 13:49 → J4W 21:06
PROVIDERS: ADMIT Family Medicine; ATTEND Family Medicine
DX: I11.0 Hypertensive heart disease with heart failure (principal); I50.33 Acute on chronic diastolic (congestive) heart failure; J96.22 Acute and chronic respiratory failure with hypercapnia; J96.21 Acute and chronic respiratory failure with hypoxia; J18.9 Pneumonia, unspecified organism; J44.1 Chronic obstructive pulmonary disease with (acute) exacerbation; J45.901 Unspecified asthma with (acute) exacerbation; Z68.43 Body mass index [BMI] 50.0-59.9, adult; J44.0 Chronic obstructive pulmonary disease with (acute) lower respiratory infection; G47.33 Obstructive sleep apnea (adult) (pediatric); E11.9 Type 2 diabetes mellitus without complications; E66.01 Morbid (severe) obesity due to excess calories; Z79.84 Long term (current) use of oral hypoglycemic drugs; Z99.81 Dependence on supplemental oxygen; I27.20 Pulmonary hypertension, unspecified; F32.A Depression, unspecified; F41.9 Anxiety disorder, unspecified; I25.10 Atherosclerotic heart disease of native coronary artery without angina pectoris; D72.829 Elevated white blood cell count, unspecified; J20.9 Acute bronchitis, unspecified
CPT/HCPCS: 36415; 36600; 71045-TC-FY; 71275-TC; 80053; 80061; 82803; 82962; 83036; 83735; 83880; 84439; 84443; 84484; 85025; 87040; 87804; 87807; 87899; 93005; 93010; 94010; 94640; 97116-GP; 97162-GP; 99285-25; C9803-CS; J1644; Q9967; U0003; U0005

== ENCOUNTER 2022-01-17 14:14 | Inpatient (IN) | payer BC ==
[2022-01-17 14:27] VITALS: BMI 47.0
[2022-01-17] MEDS ORDERED: DEXAMETHASONE SOD PHOSPHATE 10 MG/1 ML VIAL IVPUSH ONE (15:35)
[2022-01-17] MEDS: ALBUTEROL SO4 2.5/IPRATROPIUM 0.5 INH SOL 3 ML VIAL.NEB. NEB SCH ×2 (15:55→17:33)
[2022-01-17] MEDS ORDERED: DEXAMETHASONE SOD PHOSPHATE 10 MG/1 ML VIAL ONE (15:56)
[2022-01-17 16:24] LABS: EOS % 1.4 % (0-4.5); HEMATOCRIT 47.2 % (32.4-45.2); HEMOGLOBIN 14.8 GM/dL (10.7-15.3); LYMPH % 9.3 % (8-40); MCH 28.3 pg (25.7-33.7); MCHC 31.4 g/dl (32.0-36.0); MONO % 1.6 % (3.8-10.2); NEUT % 85.7 % (42.8-82.8); RBC 5.24 M/mm3 (3.60-5.2); RDW 17.8 % (11.6-15.6); WHITE BLOOD COUNT 10.9 K/mm3 (4.0-10.0)
[2022-01-17 16:25] LABS: INR 0.94 (0.83-1.09); PROTHROMBIN TIME (PATIENT) 10.8 SEC (9.7-13.0)
[2022-01-17 16:28] LABS: ACTIVATED PTT 20.9 SECONDS (25.2-36.5)
[2022-01-17 16:40] LABS: CALCIUM 9.4 mg/dL (8.5-10.1)
[2022-01-17 16:41] LABS: ALBUMIN 3.3 g/dl (3.4-5.0); BLOOD UREA NITROGEN 12.8 mg/dL (7-18)
[2022-01-17 16:44] LABS: CREATININE 0.9 mg/dL (0.55-1.3)
[2022-01-17 16:45] LABS: ANISOCYTOSIS 2+; BILIRUBIN,TOTAL 0.7 mg/dL (0.2-1); MACROCYTOSIS 0; PLATELET COUNT 111 10^3/uL (134-434); TOT PROT 7.4 g/dl (6.4-8.2)
[2022-01-17 16:46] LABS: MEAN PLT VOLUME 9.9 fl (7.5-11.1)
[2022-01-17] MEDS ORDERED: SODIUM CHLORIDE FOR INHALATION 3 ML VIAL.NEB IH ONE (17:07)
[2022-01-17] MEDS ORDERED: ALBUTEROL SO4 2.5/IPRATROPIUM 0.5 INH SOL 3 ML VIAL.NEB. NEB ONE (17:32)
[2022-01-17] MEDS ORDERED: VANCOMYCIN 1,000 MG in DEXTROSE 5%-WATER - 250 ML IVPB ONE (18:01)
[2022-01-17] MEDS ORDERED: PIPERACILLIN/TAZOB 4.5 GM 4.5 GM in DEXTROSE 5%-WATER 100 ML IVPB ONE (18:01)
[2022-01-17] MEDS ORDERED: PIPERACILLIN/TAZOB 4.5 GM 4.5 GM/100 ML BAG IVPB ONE (18:39)
[2022-01-17] MEDS ORDERED: VANCOMYCIN 1 GRAM (PRE-DOCKED) 1,000 MG/250 ML BAG IVPB ONE (19:46)
[2022-01-17] MEDS ORDERED: POLYETHYLENE GLYCOL (HEALTHYLAX) 3350 17 GM PACKET PO PRN (21:09)
[2022-01-17] MEDS ORDERED: ACETAMINOPHEN 325 MG TABLET (FP) PO PRN (21:09)
[2022-01-17] MEDS: ROSUVASTATIN CA 5 MG TABLET PO SCH (23:30)
[2022-01-17] MEDS: INSULIN SLIDING SCALE (NOVOLOG) 1 VIAL SQ SCH (23:35)
[2022-01-18] MEDS ORDERED: PIPERACILLIN/TAZOB 4.5 GM 4.5 GM in DEXTROSE 5%-WATER 100 ML IVPB SCH
[2022-01-18] MEDS ORDERED: ALBUTEROL SO4 0.083% IH SOL 2.5 MG/3 ML VIAL.NEB. NEB ONE (00:50)
[2022-01-18] MEDS: ALBUTEROL SO4 HFA INHALER IH PRN (00:58)
[2022-01-18] MEDS ORDERED: PIPERACILLIN/TAZOBACTAM 4.5 GM VIAL IVPB ONE ×2 (06:19→11:53)
[2022-01-18] MEDS ORDERED: DEXTROSE 5%-WATER 100 ML IVPB ONE ×2 (06:19→11:53)
[2022-01-18] MEDS: PIPERACILLIN/TAZOB 4.5 GM 4.5 GM in DEXTROSE 5%-WATER 100 ML IVPB SCH ×3 (07:00→12:06)
[2022-01-18] MEDS: INSULIN SLIDING SCALE (NOVOLOG) 1 VIAL SQ SCH ×4 (07:01→22:07)
[2022-01-18] MEDS: GLIMEPIRIDE 4 MG TABLET PO SCH (07:07)
[2022-01-18] MEDS ORDERED: VANCOMYCIN/WATER 2 GM/400 ML PREMIX BAG IVPB SCH (08:00)
[2022-01-18] MEDS ORDERED: ALBUTEROL SO4 2.5/IPRATROPIUM 0.5 INH SOL 3 ML VIAL.NEB. NEB SCH (08:00)
[2022-01-18] MEDS: VANCOMYCIN/WATER 2 GRAMS 2,000 MG/400 ML PIGGYBACK IVPB SCH ×2 (09:42→20:22)
[2022-01-18] MEDS: ASPIRIN 81 MG CHEWABLE TABLETS PO SCH (09:43)
[2022-01-18] MEDS: FLUTICASONE/UMECLIDIN/VILANTER(200-62.5-25 TRELEGY ELLIPTA) INAHLER IH SCH (09:43)
[2022-01-18] MEDS: LISINOPRIL 20 MG TABLET PO SCH (09:43)
[2022-01-18] MEDS: GABAPENTIN 100 MG CAPSULE PO SCH (09:43)
[2022-01-18 09:45] LABS: BASO % 0.5 % (0-2.0); EOS % 0.1 % (0-4.5); HEMATOCRIT 43.9 % (32.4-45.2); HEMOGLOBIN 13.7 GM/dL (10.7-15.3); LYMPH % 8.9 % (8-40); MCH 27.8 pg (25.7-33.7); MCHC 31.1 g/dl (32.0-36.0); MEAN CELL VOLUME 89.6 fl (80-96); MEAN PLT VOLUME 10.8 fl (7.5-11.1); MONO % 4.2 % (3.8-10.2); NEUT % 86.3 % (42.8-82.8); PLATELET COUNT 275 10^3/uL (134-434); WHITE BLOOD COUNT 16.3 K/mm3 (4.0-10.0)
[2022-01-18] MEDS ORDERED: amLODIPine BESYLATE 10 MG TABLET (FP) PO SCH (10:00)
[2022-01-18] MEDS ORDERED: PATIENT'S OWN MEDICATION (NON-FORMULARY) (Empagliflozin 25 MG Tablet) PO SCH (10:00)
[2022-01-18 10:04] LABS: CALCIUM 10.3 mg/dL (8.5-10.1); MAGNESIUM 2.6 mg/dL (1.8-2.4)
[2022-01-18 10:05] LABS: BLOOD UREA NITROGEN 15.1 mg/dL (7-18)
[2022-01-18 10:08] LABS: CREATININE 0.8 mg/dL (0.55-1.3)
[2022-01-18] MEDS: ENOXAPARIN NA (PORCINE) 40 MG/0.4 ML DISP.SYRIN SQ SCH ×2 (12:06→22:04)
[2022-01-18] MEDS: methylPREDNISolone NA SUCC 40 MG/1 ML VIAL IVPUSH SCH ×2 (15:16→17:20)
[2022-01-18] MEDS ORDERED: PIPERACILLIN/TAZOBACTAM 3.375 GM VIAL IVPB ONE (17:12)
[2022-01-18] MEDS ORDERED: DEXTROSE 5%-WATER - 50 ML IVPB ONE (17:13)
[2022-01-18] MEDS: PIPERACILLIN/TAZOB 3.375 GM 3.375 GM in DEXTROSE 5%-WATER - 50 ML IVPB SCH (17:19)
[2022-01-18] MEDS: guaiFENesin/D-METHORPHAN HB 10 ML UNIT-DOSE CUPS PO PRN (17:45)
[2022-01-18] MEDS: ROSUVASTATIN CA 5 MG TABLET PO SCH (22:03)
[2022-01-18] MEDS: oxyCODONE HCL 5 MG TABLET PO PRN (22:12)
[2022-01-19] MEDS: guaiFENesin/D-METHORPHAN HB 10 ML UNIT-DOSE CUPS PO PRN ×3 (00:09→22:48)
[2022-01-19] MEDS ORDERED: DEXTROSE 5%-WATER - 50 ML IVPB ONE ×3 (00:46→16:49)
[2022-01-19] MEDS ORDERED: PIPERACILLIN/TAZOBACTAM 3.375 GM VIAL IVPB ONE ×3 (00:46→16:49)
[2022-01-19] MEDS: methylPREDNISolone NA SUCC 40 MG/1 ML VIAL IVPUSH SCH ×3 (01:05→17:08)
[2022-01-19] MEDS: PIPERACILLIN/TAZOB 3.375 GM 3.375 GM in DEXTROSE 5%-WATER - 50 ML IVPB SCH ×5 (01:08→17:07)
[2022-01-19] MEDS: INSULIN SLIDING SCALE (NOVOLOG) 1 VIAL SQ SCH ×4 (06:37→22:49)
[2022-01-19] MEDS: GLIMEPIRIDE 4 MG TABLET PO SCH (06:37)
[2022-01-19] MEDS: ASPIRIN 81 MG CHEWABLE TABLETS PO SCH (10:09)
[2022-01-19] MEDS: GABAPENTIN 100 MG CAPSULE PO SCH (10:09)
[2022-01-19] MEDS: ENOXAPARIN NA (PORCINE) 40 MG/0.4 ML DISP.SYRIN SQ SCH ×2 (10:09→22:49)
[2022-01-19] MEDS: LISINOPRIL 20 MG TABLET PO SCH (10:09)
[2022-01-19] MEDS: FLUTICASONE/UMECLIDIN/VILANTER(200-62.5-25 TRELEGY ELLIPTA) INAHLER IH SCH (10:09)
[2022-01-19] MEDS: ALBUTEROL SO4 HFA INHALER IH PRN (17:10)
[2022-01-19] MEDS: oxyCODONE HCL 5 MG TABLET PO PRN (22:48)
[2022-01-19] MEDS: ROSUVASTATIN CA 5 MG TABLET PO SCH (22:48)
[2022-01-20] MEDS ORDERED: DEXTROSE 5%-WATER - 50 ML IVPB ONE ×3 (02:20→17:09)
[2022-01-20] MEDS ORDERED: PIPERACILLIN/TAZOBACTAM 3.375 GM VIAL IVPB ONE ×3 (02:20→17:09)
[2022-01-20] MEDS: PIPERACILLIN/TAZOB 3.375 GM 3.375 GM in DEXTROSE 5%-WATER - 50 ML IVPB SCH ×4 (02:23→17:25)
[2022-01-20] MEDS: methylPREDNISolone NA SUCC 40 MG/1 ML VIAL IVPUSH SCH (02:23)
[2022-01-20] MEDS: INSULIN SLIDING SCALE (NOVOLOG) 1 VIAL SQ SCH ×3 (06:46→16:51)
[2022-01-20] MEDS: GLIMEPIRIDE 4 MG TABLET PO SCH (06:46)
[2022-01-20] MEDS: LISINOPRIL 20 MG TABLET PO SCH ×2 (07:30→10:59)
[2022-01-20] MEDS ORDERED: amLODIPine BESYLATE 5 MG TABLET (FP) PO SCH (10:00)
[2022-01-20] MEDS ORDERED: predniSONE 20 MG TABLET (UD) PO SCH (10:00)
[2022-01-20] MEDS ORDERED: amLODIPine BESYLATE 10 MG TABLET (FP) PO SCH (10:00)
[2022-01-20] MEDS: GABAPENTIN 100 MG CAPSULE PO SCH (10:58)
[2022-01-20] MEDS: ASPIRIN 81 MG CHEWABLE TABLETS PO SCH (10:58)
[2022-01-20] MEDS: guaiFENesin/D-METHORPHAN HB 10 ML UNIT-DOSE CUPS PO PRN (10:58)
[2022-01-20] MEDS: FLUTICASONE/UMECLIDIN/VILANTER(200-62.5-25 TRELEGY ELLIPTA) INAHLER IH SCH (11:00)
[2022-01-20] MEDS: ALBUTEROL SO4 HFA INHALER IH PRN (11:02)
[2022-01-20] MEDS: ENOXAPARIN NA (PORCINE) 40 MG/0.4 ML DISP.SYRIN SQ SCH (11:05)
[2022-01-20] MEDS: ALBUTEROL SO4 0.083% IH SOL 2.5 MG/3 ML VIAL.NEB. NEB SCH ×2 (12:08→15:21)
[2022-01-20 15:05] VITALS: BP 131/66; PULSE 76; TEMP 97.6
== END 2022-01-20 18:20 | disposition home or self-care (01) | DRG 190 ==
LOC: JER 14:14 → JERBED 18:43 → J5S 01-18 01:08
PROVIDERS: ADMIT Internal Medicine; ATTEND Family Medicine
DX: J44.0 Chronic obstructive pulmonary disease with (acute) lower respiratory infection (principal); J18.9 Pneumonia, unspecified organism; Z68.42 Body mass index [BMI] 45.0-49.9, adult; J44.1 Chronic obstructive pulmonary disease with (acute) exacerbation; J45.909 Unspecified asthma, uncomplicated; J20.9 Acute bronchitis, unspecified; I10 Essential (primary) hypertension; E78.5 Hyperlipidemia, unspecified; E11.42 Type 2 diabetes mellitus with diabetic polyneuropathy; E66.01 Morbid (severe) obesity due to excess calories; I25.10 Atherosclerotic heart disease of native coronary artery without angina pectoris; G47.30 Sleep apnea, unspecified; M41.9 Scoliosis, unspecified; Z99.81 Dependence on supplemental oxygen
CPT/HCPCS: 0241U-QW; 36415; 71045-TC-FY; 71250-TC; 80048; 80053; 82962; 83735; 84484; 85025; 85610; 85730; 86850; 86900; 86901; 87070; 87205; 93005; 93010; 94010; 94640; 99285-25; J1100

== ENCOUNTER 2022-02-02 16:00 | Inpatient (IN) | payer BC ==
[2022-02-02 16:26] VITALS: BMI 38.3
[2022-02-02] MEDS ORDERED: DEXAMETHASONE SOD PHOSPHATE 10 MG/1 ML VIAL IVPUSH ONE (16:51)
[2022-02-02] MEDS ORDERED: SODIUM CHLORIDE FOR INHALATION 3 ML VIAL.NEB IH ONE (16:51)
[2022-02-02] MEDS ORDERED: guaiFENesin/D-METHORPHAN TAB.ER.12H PO ONE (16:53)
[2022-02-02] MEDS ORDERED: DEXAMETHASONE SOD PHOSPHATE 10 MG/1 ML VIAL ONE (17:37)
[2022-02-02 18:19] LABS: INR 0.97 (0.83-1.09); PROTHROMBIN TIME (PATIENT) 11.1 SEC (9.7-13.0)
[2022-02-02 18:22] LABS: ACTIVATED PTT 26.7 SECONDS (25.2-36.5); ALBUMIN 3.3 g/dl (3.4-5.0); BLOOD UREA NITROGEN 11.6 mg/dL (7-18); CALCIUM 9.9 mg/dL (8.5-10.1)
[2022-02-02 18:25] LABS: CREATININE 0.8 mg/dL (0.55-1.3)
[2022-02-02 18:27] LABS: BILIRUBIN,TOTAL 0.6 mg/dL (0.2-1); TOT PROT 6.8 g/dl (6.4-8.2)
[2022-02-02 18:54] LABS: BASO % 1.1 % (0-2.0); EOS % 0.4 % (0-4.5); HEMOGLOBIN 13.4 GM/dL (10.7-15.3); LYMPH % 11.8 % (8-40); MCH 27.8 pg (25.7-33.7); MCHC 30.6 g/dl (32.0-36.0); MEAN CELL VOLUME 90.9 fl (80-96); MEAN PLT VOLUME 10.5 fl (7.5-11.1); MONO % 3.6 % (3.8-10.2); NEUT % 83.1 % (42.8-82.8); PLATELET COUNT 194 10^3/uL (134-434); RBC 4.81 M/mm3 (3.60-5.2); RDW 17.3 % (11.6-15.6); WHITE BLOOD COUNT 13.1 K/mm3 (4.0-10.0)
[2022-02-02 18:58] LABS: HEMATOCRIT 43.7 % (32.4-45.2)
[2022-02-02] MEDS ORDERED: ALBUTEROL SO4 2.5/IPRATROPIUM 0.5 INH SOL 3 ML VIAL.NEB. NEB ONE (20:48)
[2022-02-02] MEDS ORDERED: CEFTRIAXONE 1 GM in DEXTROSE 5%-WATER - 100 ML IVPB ONE (20:52)
[2022-02-02] MEDS ORDERED: AZITHROMYCIN IVPB 500 MG in DEXTROSE 5%-WATER - 250 ML IVPB ONE (20:52)
[2022-02-02] MEDS: ALBUTEROL SO4 2.5/IPRATROPIUM 0.5 INH SOL 3 ML VIAL.NEB. NEB SCH ×3 (20:54→21:38)
[2022-02-02 21:00] LABS: ALLENS TEST POSITIVE; ARTERIAL BLD GAS O2 SATURATION 94.5 % (95-98); ARTERIAL BLOOD GAS BASE EXCESS 9.6 mmol/L (-2-2); ARTERIAL BLOOD GAS PO2 77.9 mmHg (80-100); ARTERIAL BLOOD GAS pH 7.356 (7.350-7.450)
[2022-02-02 21:29] LABS: ANISOCYTOSIS 0; HELMET CELLS 0; HOWELL-JOLLY BODIES 0; MACROCYTOSIS 0; OVALOCYTE 0; ROULEAU 0; SICKELED CELLS 0; TARGET CELLS 0; TEAR DROP CELLS 0; TOXIC GRANULATION 0
[2022-02-02] MEDS ORDERED: CEFTRIAXONE 1 GM/50 ML BAG ONE (21:39)
[2022-02-02] MEDS ORDERED: guaiFENesin 600 MG TABLET.ER (FP) PO SCH (22:00)
[2022-02-02] MEDS ORDERED: AZITHROMYCIN IVPB 500 MG/250 ML BAG IVPB ONE (22:03)
[2022-02-03] MEDS ORDERED: GABAPENTIN 100 MG CAPSULE PO PRN (03:08)
[2022-02-03] MEDS ORDERED: ALBUTEROL SO4 HFA INHALER IH PRN (03:08)
[2022-02-03] MEDS ORDERED: ALBUTEROL SO4 2.5/IPRATROPIUM 0.5 INH SOL 3 ML VIAL.NEB. NEB PRN (03:08)
[2022-02-03] MEDS ORDERED: guaiFENesin/D-METHORPHAN HB 10 ML UNIT-DOSE CUPS PO PRN (03:08)
[2022-02-03] MEDS ORDERED: oxyCODONE HCL 5 MG TABLET PO PRN (03:13)
[2022-02-03] MEDS ORDERED: amLODIPine BESYLATE 5 MG TABLET (FP) ONE (08:55)
[2022-02-03] MEDS ORDERED: ASPIRIN 81 MG CHEWABLE TABLETS ONE (08:56)
[2022-02-03] MEDS ORDERED: LISINOPRIL 20 MG TABLET ONE (08:56)
[2022-02-03] MEDS ORDERED: ENOXAPARIN NA (PORCINE) 40 MG/0.4 ML DISP.SYRIN SQ ONE (08:56)
[2022-02-03] MEDS: GLIMEPIRIDE 4 MG TABLET PO SCH (09:00)
[2022-02-03] MEDS: ENOXAPARIN NA (PORCINE) 40 MG/0.4 ML DISP.SYRIN SQ SCH (09:58)
[2022-02-03] MEDS: amLODIPine BESYLATE 10 MG TABLET (FP) PO SCH (09:58)
[2022-02-03] MEDS: LISINOPRIL 20 MG TABLET PO SCH (09:58)
[2022-02-03] MEDS: ASPIRIN 81 MG CHEWABLE TABLETS PO SCH (09:58)
[2022-02-03 12:09] LABS: BASO % 0.3 % (0-2.0); HEMATOCRIT 41.1 % (32.4-45.2); HEMOGLOBIN 12.7 GM/dL (10.7-15.3); LYMPH % 10.9 % (8-40); MCH 27.7 pg (25.7-33.7); MCHC 30.9 g/dl (32.0-36.0); MEAN CELL VOLUME 89.7 fl (80-96); MEAN PLT VOLUME 10.2 fl (7.5-11.1); MONO % 5.3 % (3.8-10.2); NEUT % 83.5 % (42.8-82.8); PLATELET COUNT 201 10^3/uL (134-434); RBC 4.59 M/mm3 (3.60-5.2); RDW 17.1 % (11.6-15.6); WHITE BLOOD COUNT 15.8 K/mm3 (4.0-10.0)
[2022-02-03 12:27] LABS: BLOOD UREA NITROGEN 16.6 mg/dL (7-18); CALCIUM 10.3 mg/dL (8.5-10.1); MAGNESIUM 2.5 mg/dL (1.8-2.4)
[2022-02-03 12:30] LABS: CREATININE 0.8 mg/dL (0.55-1.3)
[2022-02-03] MEDS: methylPREDNISolone NA SUCC 40 MG/1 ML VIAL IVPUSH SCH (18:13)
[2022-02-03] MEDS ORDERED: cefTRIAXone SODIUM 1 GM VIAL ONE (21:09)
[2022-02-03] MEDS ORDERED: DEXTROSE 5%-WATER - 50 ML IVPB ONE (21:09)
[2022-02-03] MEDS: oxyCODONE HCL 5 MG TABLET PO PRN (21:49)
[2022-02-03] MEDS ORDERED: ROSUVASTATIN CA 5 MG TABLET PO SCH (22:00)
[2022-02-03] MEDS ORDERED: AZITHROMYCIN IVPB 500 MG/250 ML BAG IVPB SCH (22:00)
[2022-02-03] MEDS ORDERED: CEFTRIAXONE 1 GM in DEXTROSE 5%-WATER - 50 ML IVPB SCH (22:00)
[2022-02-04] MEDS: methylPREDNISolone NA SUCC 40 MG/1 ML VIAL IVPUSH SCH (02:44)
[2022-02-04] MEDS: GLIMEPIRIDE 4 MG TABLET PO SCH (06:52)
[2022-02-04] MEDS ORDERED: predniSONE 20 MG TABLET (UD) PO SCH (10:00)
[2022-02-04] MEDS: LISINOPRIL 20 MG TABLET PO SCH (10:25)
[2022-02-04] MEDS: amLODIPine BESYLATE 10 MG TABLET (FP) PO SCH (10:25)
[2022-02-04] MEDS: ASPIRIN 81 MG CHEWABLE TABLETS PO SCH (10:25)
[2022-02-04] MEDS: ENOXAPARIN NA (PORCINE) 40 MG/0.4 ML DISP.SYRIN SQ SCH (10:26)
[2022-02-04] MEDS: oxyCODONE HCL 5 MG TABLET PO PRN (14:51)
[2022-02-04 14:57] VITALS: BP 123/77; PULSE 76; TEMP 98.4
== END 2022-02-04 18:55 | disposition home or self-care (01) | DRG 190 ==
LOC: JER 16:00 → JERBED 20:44 → J4W 02-03 16:57
PROVIDERS: ADMIT Hospitalist; ATTEND Family Medicine
DX: J44.1 Chronic obstructive pulmonary disease with (acute) exacerbation (principal); J96.22 Acute and chronic respiratory failure with hypercapnia; J96.21 Acute and chronic respiratory failure with hypoxia; E66.2 Morbid (severe) obesity with alveolar hypoventilation; J90 Pleural effusion, not elsewhere classified; I10 Essential (primary) hypertension; Z99.81 Dependence on supplemental oxygen; E78.5 Hyperlipidemia, unspecified; Z79.84 Long term (current) use of oral hypoglycemic drugs; I27.20 Pulmonary hypertension, unspecified; E11.40 Type 2 diabetes mellitus with diabetic neuropathy, unspecified; D72.829 Elevated white blood cell count, unspecified; Z68.38 Body mass index [BMI] 38.0-38.9, adult
CPT/HCPCS: 0241U-QW; 36415; 36600; 71045-TC-FY; 80048; 80053; 82803; 82962; 83735; 83880; 84484; 85025; 85610; 85730; 86850; 86900; 86901; 93005; 93010; 99285-25; J1100

== ENCOUNTER 2022-04-20 11:03 | Inpatient (IN) | payer BC ==
[2022-04-20] MEDS ORDERED: ALBUTEROL SO4 2.5/IPRATROPIUM 0.5 INH SOL 3 ML VIAL.NEB. NEB ONE ×3 (11:10→13:16)
[2022-04-20 12:34] LABS: ARTERIAL BLD GAS O2 SATURATION 91.9 % (95-98); ARTERIAL BLOOD GAS PO2 73.6 mmHg (80-100); ARTERIAL BLOOD GAS pH 7.272 (7.350-7.450)
[2022-04-20 12:36] LABS: INR 0.96 (0.83-1.09)
[2022-04-20 12:37] LABS: EPI CELLS 9 /uL (0-25.1); HYALINE CASTS 0 /uL (0-3.1); URINE APPEARANCE CLEAR; URINE BACTERIA 48 /uL (0-1359); URINE BILIRUBIN NEGATIVE (NEGATIVE); URINE COLOR YELLOW; URINE GLUCOSE (UA) 3+ (NEGATIVE); URINE KETONE NEGATIVE (NEGATIVE); URINE LEUK ESTERASE NEGATIVE (NEGATIVE); URINE NITRITE NEGATIVE (NEGATIVE); URINE PROTEIN NEGATIVE (NEGATIVE); URINE RBC 32 /uL (0-23.9); URINE UROBILINOGEN 0.2 mg/dL (0.2-1.0); URINE WBC 4 /uL (0-25.8)
[2022-04-20 12:38] LABS: ACTIVATED PTT 27.4 SECONDS (25.2-36.5)
[2022-04-20 12:46] LABS: BLOOD UREA NITROGEN 15.5 mg/dL (7-18); CALCIUM 9.7 mg/dL (8.5-10.1)
[2022-04-20 12:48] LABS: ALBUMIN 3.4 g/dl (3.4-5.0); MAGNESIUM 2.9 mg/dL (1.8-2.4)
[2022-04-20 12:51] LABS: CREATININE 0.9 mg/dL (0.55-1.3)
[2022-04-20 12:52] LABS: BILIRUBIN,TOTAL 0.5 mg/dL (0.2-1); TOT PROT 7.2 g/dl (6.4-8.2)
[2022-04-20 12:53] LABS: ALLENS TEST POSITIVE
[2022-04-20 12:55] LABS: N-TERMINAL BNP 276.9 pg/ml (5-125)
[2022-04-20 13:07] LABS: BASO % 0.4 % (0-2.0); EOS % 0.2 % (0-4.5); HEMATOCRIT 46.3 % (32.4-45.2); HEMOGLOBIN 13.9 GM/dL (10.7-15.3); LYMPH % 7.6 % (8-40); MCH 27.7 pg (25.7-33.7); MEAN CELL VOLUME 92.4 fl (80-96); MEAN PLT VOLUME 11.1 fl (7.5-11.1); NEUT % 84.8 % (42.8-82.8); PLATELET COUNT 210 10^3/uL (134-434); RBC 5.01 M/mm3 (3.60-5.2); RDW 18.3 % (11.6-15.6); WHITE BLOOD COUNT 17.6 K/mm3 (4.0-10.0)
[2022-04-20] MEDS ORDERED: methylPREDNISolone NA SUCC 125 MG/2 ML VIAL IVPUSH ONE (13:11)
[2022-04-20] MEDS ORDERED: CEFTRIAXONE 1 GM in DEXTROSE 5%-WATER - 50 ML IVPB ONE (13:11)
[2022-04-20] MEDS ORDERED: AZITHROMYCIN IVPB 500 MG in DEXTROSE 5%-WATER - 250 ML IVPB ONE (13:11)
[2022-04-20] MEDS ORDERED: CEFTRIAXONE 1 GM/50 ML BAG ONE (13:14)
[2022-04-20] MEDS ORDERED: methylPREDNISolone NA SUCC 125 MG/2 ML VIAL ONE (13:15)
[2022-04-20] MEDS ORDERED: AZITHROMYCIN IVPB 500 MG/250 ML BAG IVPB ONE (13:16)
[2022-04-20] MEDS: ALBUTEROL SO4 2.5/IPRATROPIUM 0.5 INH SOL 3 ML VIAL.NEB. NEB SCH ×2 (13:32→13:36)
[2022-04-20 16:33] LABS: ARTERIAL BLD GAS O2 SATURATION 93.1 % (95-98); ARTERIAL BLOOD GAS BASE EXCESS 10.6 mmol/L (-2-2); ARTERIAL BLOOD GAS PO2 71.3 mmHg (80-100); ARTERIAL BLOOD GAS pH 7.362 (7.350-7.450)
[2022-04-20 16:43] LABS: ALLENS TEST POSITIVE
[2022-04-20 16:44] LABS: VENT MODE S/T; VENT RATE 12
[2022-04-20] MEDS ORDERED: ENOXAPARIN NA (PORCINE) 40 MG/0.4 ML DISP.SYRIN SQ SCH (18:00)
[2022-04-20] MEDS ORDERED: D5-1/2NS+20 MEQ KCL - 20 MEQ/1,000 ML INFUS.BAG IV SCH (18:00)
[2022-04-20] MEDS ORDERED: ENOXAPARIN NA (PORCINE) 40 MG/0.4 ML DISP.SYRIN SQ ONE (18:32)
[2022-04-20] MEDS ORDERED: methylPREDNISolone NA SUCC 40 MG/1 ML VIAL ONE ×2 (18:32→21:58)
[2022-04-20] MEDS: methylPREDNISolone NA SUCC 40 MG/1 ML VIAL IVPUSH SCH ×2 (19:02→22:00)
[2022-04-20] MEDS ORDERED: ALBUTEROL SO4 2.5/IPRATROPIUM 0.5 INH SOL 3 ML VIAL.NEB. NEB SCH (20:00)
[2022-04-20] MEDS: INSULIN SLIDING SCALE (NOVOLOG) 1 VIAL SQ SCH (21:57)
[2022-04-20] MEDS ORDERED: MUPIROCIN 2% TOPICAL OINTMENT FOR DECOLONIZATION NS SCH (22:00)
[2022-04-20] MEDS ORDERED: CHLORHEXIDINE GLUCONATE 4% CLEANSER FOR DECOLONIZATION TP SCH (22:00)
[2022-04-20] MEDS ORDERED: MELATONIN 5 MG TABLETS PO ONE (22:51)
[2022-04-21] MEDS: methylPREDNISolone NA SUCC 40 MG/1 ML VIAL IVPUSH SCH ×4 (02:29→21:56)
[2022-04-21] MEDS: INSULIN SLIDING SCALE (NOVOLOG) 1 VIAL SQ SCH ×4 (06:11→21:56)
[2022-04-21] MEDS ORDERED: D5-1/2NS+20 MEQ KCL - 20 MEQ/1,000 ML INFUS.BAG IV SCH (07:33)
[2022-04-21 07:45] LABS: BASO % 0.2 % (0-2.0); HEMATOCRIT 42.6 % (32.4-45.2); HEMOGLOBIN 13.1 GM/dL (10.7-15.3); LYMPH % 7.7 % (8-40); MCHC 30.7 g/dl (32.0-36.0); MEAN CELL VOLUME 91.1 fl (80-96); MEAN PLT VOLUME 11.3 fl (7.5-11.1); MONO % 2.1 % (3.8-10.2); PLATELET COUNT 178 10^3/uL (134-434); RBC 4.68 M/mm3 (3.60-5.2); RDW 17.7 % (11.6-15.6); WHITE BLOOD COUNT 16.7 K/mm3 (4.0-10.0)
[2022-04-21 08:02] LABS: CALCIUM 9.2 mg/dL (8.5-10.1)
[2022-04-21 08:03] LABS: ALBUMIN 2.9 g/dl (3.4-5.0); BLOOD UREA NITROGEN 21.8 mg/dL (7-18)
[2022-04-21 08:05] LABS: CREATININE 0.7 mg/dL (0.55-1.3)
[2022-04-21 08:07] LABS: BILIRUBIN,TOTAL 0.6 mg/dL (0.2-1); TOT PROT 6.2 g/dl (6.4-8.2)
[2022-04-21 08:54] LABS: ARTERIAL BLD GAS O2 SATURATION 95.4 % (95-98); ARTERIAL BLOOD GAS BASE EXCESS 8.8 mmol/L (-2-2); ARTERIAL BLOOD GAS PO2 84.5 mmHg (80-100); ARTERIAL BLOOD GAS pH 7.339 (7.350-7.450)
[2022-04-21 09:00] LABS: ALLENS TEST POSITIVE
[2022-04-21] MEDS: ALBUTEROL SO4 2.5/IPRATROPIUM 0.5 INH SOL 3 ML VIAL.NEB. NEB SCH ×4 (09:13→20:35)
[2022-04-21] MEDS ORDERED: AZITHROMYCIN IVPB 500 MG/250 ML BAG IVPB SCH (10:00)
[2022-04-21] MEDS ORDERED: ASPIRIN 81 MG CHEWABLE TABLETS PO SCH (10:00)
[2022-04-21] MEDS ORDERED: CEFTRIAXONE 1 GM in DEXTROSE 5%-WATER - 50 ML IVPB SCH (10:00)
[2022-04-21] MEDS ORDERED: amLODIPine BESYLATE 10 MG TABLET (FP) PO SCH (10:00)
[2022-04-21] MEDS: ENOXAPARIN NA (PORCINE) 40 MG/0.4 ML DISP.SYRIN SQ SCH (10:49)
[2022-04-21] MEDS: AZITHROMYCIN IVPB 500 MG/250 ML BAG IVPB SCH (10:51)
[2022-04-21] MEDS: CEFTRIAXONE 1 GM in DEXTROSE 5%-WATER - 50 ML IVPB SCH (10:53)
[2022-04-21] MEDS: ASPIRIN 81 MG CHEWABLE TABLETS PO SCH (10:54)
[2022-04-21] MEDS: amLODIPine BESYLATE 10 MG TABLET (FP) PO SCH (10:54)
[2022-04-22] MEDS: methylPREDNISolone NA SUCC 40 MG/1 ML VIAL IVPUSH SCH ×4 (02:52→21:49)
[2022-04-22] MEDS: INSULIN SLIDING SCALE (NOVOLOG) 1 VIAL SQ SCH ×4 (06:48→21:50)
[2022-04-22] MEDS: ALBUTEROL SO4 2.5/IPRATROPIUM 0.5 INH SOL 3 ML VIAL.NEB. NEB SCH ×4 (07:55→20:42)
[2022-04-22] MEDS: ASPIRIN 81 MG CHEWABLE TABLETS PO SCH (09:58)
[2022-04-22] MEDS: CEFTRIAXONE 1 GM in DEXTROSE 5%-WATER - 50 ML IVPB SCH (09:59)
[2022-04-22] MEDS: ENOXAPARIN NA (PORCINE) 40 MG/0.4 ML DISP.SYRIN SQ SCH (09:59)
[2022-04-22] MEDS: AZITHROMYCIN IVPB 500 MG/250 ML BAG IVPB SCH (10:00)
[2022-04-22] MEDS: VALSARTAN 80 MG TABLET PO SCH (10:02)
[2022-04-22] MEDS: amLODIPine BESYLATE 10 MG TABLET (FP) PO SCH (10:02)
[2022-04-22] MEDS: INSULIN (LEVEMIR) 100 UNITS/ML UNITS SQ SCH (21:49)
[2022-04-23] MEDS: methylPREDNISolone NA SUCC 40 MG/1 ML VIAL IVPUSH SCH ×4 (02:48→21:09)
[2022-04-23] MEDS: metFORMIN HCL 500 MG TABLET (FP) PO SCH ×2 (06:39→16:08)
[2022-04-23] MEDS: INSULIN (LEVEMIR) 100 UNITS/ML UNITS SQ SCH ×2 (06:40→21:13)
[2022-04-23] MEDS: INSULIN SLIDING SCALE (NOVOLOG) 1 VIAL SQ SCH ×4 (06:46→21:14)
[2022-04-23] MEDS: ALBUTEROL SO4 2.5/IPRATROPIUM 0.5 INH SOL 3 ML VIAL.NEB. NEB SCH ×4 (07:30→20:05)
[2022-04-23] MEDS: amLODIPine BESYLATE 10 MG TABLET (FP) PO SCH (09:34)
[2022-04-23] MEDS: ASPIRIN 81 MG CHEWABLE TABLETS PO SCH (09:34)
[2022-04-23] MEDS: VALSARTAN 80 MG TABLET PO SCH (09:34)
[2022-04-23] MEDS: AZITHROMYCIN 250 MG TABLET PO SCH (09:34)
[2022-04-23] MEDS: ENOXAPARIN NA (PORCINE) 40 MG/0.4 ML DISP.SYRIN SQ SCH (09:52)
[2022-04-23] MEDS ORDERED: AZITHROMYCIN 250 MG TABLET PO SCH (10:00)
[2022-04-23 22:31] VITALS: BMI 52.4
[2022-04-24] MEDS: methylPREDNISolone NA SUCC 40 MG/1 ML VIAL IVPUSH SCH ×2 (04:01→10:00)
[2022-04-24] MEDS: metFORMIN HCL 500 MG TABLET (FP) PO SCH ×2 (06:48→17:34)
[2022-04-24] MEDS: INSULIN (LEVEMIR) 100 UNITS/ML UNITS SQ SCH ×2 (06:49→22:11)
[2022-04-24] MEDS: INSULIN SLIDING SCALE (NOVOLOG) 1 VIAL SQ SCH ×4 (06:50→22:12)
[2022-04-24] MEDS: ALBUTEROL SO4 2.5/IPRATROPIUM 0.5 INH SOL 3 ML VIAL.NEB. NEB SCH ×4 (07:45→20:20)
[2022-04-24] MEDS: ASPIRIN 81 MG CHEWABLE TABLETS PO SCH (10:01)
[2022-04-24] MEDS: amLODIPine BESYLATE 10 MG TABLET (FP) PO SCH (10:01)
[2022-04-24] MEDS: AZITHROMYCIN 250 MG TABLET PO SCH (10:01)
[2022-04-24] MEDS: VALSARTAN 80 MG TABLET PO SCH (10:01)
[2022-04-24] MEDS: ENOXAPARIN NA (PORCINE) 40 MG/0.4 ML DISP.SYRIN SQ SCH (10:01)
[2022-04-24] MEDS ORDERED: methylPREDNISolone NA SUCC 40 MG/1 ML VIAL IVPUSH SCH (22:00)
[2022-04-25] MEDS: INSULIN SLIDING SCALE (NOVOLOG) 1 VIAL SQ SCH ×2 (06:58→13:47)
[2022-04-25] MEDS: metFORMIN HCL 500 MG TABLET (FP) PO SCH (07:01)
[2022-04-25] MEDS: INSULIN (LEVEMIR) 100 UNITS/ML UNITS SQ SCH (07:01)
[2022-04-25] MEDS: ALBUTEROL SO4 2.5/IPRATROPIUM 0.5 INH SOL 3 ML VIAL.NEB. NEB SCH ×3 (08:01→15:40)
[2022-04-25] MEDS: ASPIRIN 81 MG CHEWABLE TABLETS PO SCH (09:15)
[2022-04-25] MEDS: amLODIPine BESYLATE 10 MG TABLET (FP) PO SCH (09:15)
[2022-04-25] MEDS: VALSARTAN 80 MG TABLET PO SCH (09:15)
[2022-04-25] MEDS: AZITHROMYCIN 250 MG TABLET PO SCH (09:15)
[2022-04-25] MEDS: ENOXAPARIN NA (PORCINE) 40 MG/0.4 ML DISP.SYRIN SQ SCH (09:16)
[2022-04-25] MEDS ORDERED: predniSONE 20 MG TABLET (UD) PO SCH (10:00)
[2022-04-25 14:06] VITALS: RESP 18
[2022-04-25 14:50] VITALS: BP 120/75; PULSE 89; TEMP 99.3
== END 2022-04-25 15:15 | disposition home or self-care (01) | DRG 189 ==
LOC: JER 11:03 → JERBED 13:34 → J4W 23:29
PROVIDERS: ADMIT Family Medicine; ATTEND Family Medicine
DX: J96.21 Acute and chronic respiratory failure with hypoxia (principal); J44.1 Chronic obstructive pulmonary disease with (acute) exacerbation; Z68.43 Body mass index [BMI] 50.0-59.9, adult; J98.11 Atelectasis; J96.22 Acute and chronic respiratory failure with hypercapnia; I10 Essential (primary) hypertension; E78.5 Hyperlipidemia, unspecified; G47.33 Obstructive sleep apnea (adult) (pediatric); E66.01 Morbid (severe) obesity due to excess calories; R55 Syncope and collapse; I25.10 Atherosclerotic heart disease of native coronary artery without angina pectoris; I45.10 Unspecified right bundle-branch block; D72.829 Elevated white blood cell count, unspecified; R41.82 Altered mental status, unspecified; M41.9 Scoliosis, unspecified; F41.9 Anxiety disorder, unspecified; E05.30 Thyrotoxicosis from ectopic thyroid tissue without thyrotoxic crisis or storm; E11.40 Type 2 diabetes mellitus with diabetic neuropathy, unspecified; Z99.81 Dependence on supplemental oxygen
CPT/HCPCS: 0241U-QW; 36415; 36600; 71045-TC-FY; 71250-TC; 80053; 81003; 82010; 82803; 82962; 83605; 83735; 83880; 84443; 84484; 85025; 85610; 85730; 86850; 86900; 86901; 87040; 87086; 87899; 93005; 93010; 94010; 94640; 94660; 99285-25

== ENCOUNTER 2022-05-15 10:36 | Inpatient (IN) | payer BC ==
[2022-05-15 12:21] LABS: VENOUS BASE EXCESS 8.6 mmol/L (-2-2); VENOUS O2 SATURATION 94.4 % (70-80); VENOUS PCO2 92.3 mmHg (38-52)
[2022-05-15 12:29] LABS: BASO % 0.4 % (0-2.0); EOS % 0.6 % (0-4.5); HEMATOCRIT 40.6 % (32.4-45.2); HEMOGLOBIN 12.9 GM/dL (10.7-15.3); LYMPH % 12.6 % (8-40); MCH 29.4 pg (25.7-33.7); MCHC 31.8 g/dl (32.0-36.0); MEAN CELL VOLUME 92.5 fl (80-96); MEAN PLT VOLUME 9.9 fl (7.5-11.1); MONO % 9.4 % (3.8-10.2); PLATELET COUNT 194 10^3/uL (134-434); RBC 4.38 M/mm3 (3.60-5.2); RDW 18.3 % (11.6-15.6); WHITE BLOOD COUNT 10.7 K/mm3 (4.0-10.0)
[2022-05-15 12:30] LABS: VENOUS PH 7.25 (7.310-7.410)
[2022-05-15] MEDS ORDERED: methylPREDNISolone NA SUCC 125 MG/2 ML VIAL IVPUSH ONE (12:37)
[2022-05-15] MEDS ORDERED: methylPREDNISolone NA SUCC 125 MG/2 ML VIAL ONE (12:40)
[2022-05-15] MEDS: ALBUTEROL SO4 2.5/IPRATROPIUM 0.5 INH SOL 3 ML VIAL.NEB. NEB SCH ×4 (12:45→13:55)
[2022-05-15 13:07] LABS: CHLORIDE 103 mmol/L (98-107); SODIUM 141 mmol/L (136-145)
[2022-05-15 13:17] LABS: GLUCOSE,RANDOM 143 mg/dL (74-106)
[2022-05-15 13:18] LABS: ALBUMIN 3.2 g/dl (3.4-5.0); ANION GAP 6 MMOL/L (8-16); CALCIUM 9.2 mg/dL (8.5-10.1); CO2 32 mmol/L (21-32)
[2022-05-15 13:19] LABS: VENOUS BASE EXCESS 8.9 mmol/L (-2-2); VENOUS O2 SATURATION 96.8 % (70-80); VENOUS PH 7.342 (7.310-7.410)
[2022-05-15 13:21] LABS: CREATININE 0.7 mg/dL (0.55-1.3); SGPT/ALT 49 U/L (13-61)
[2022-05-15 13:21] LABS: VENOUS PCO2 70.6 mmHg (38-52)
[2022-05-15 13:22] LABS: TOT PROT 6.4 g/dl (6.4-8.2)
[2022-05-15 13:23] LABS: ALK PHOS 85 U/L (45-117); BILIRUBIN,TOTAL 0.8 mg/dL (0.2-1); SGOT/AST 50 U/L (15-37)
[2022-05-15 13:26] LABS: N-TERMINAL BNP 408.3 pg/ml (5-125)
[2022-05-15] MEDS ORDERED: ALBUTEROL SO4 0.083% IH SOL 2.5 MG/3 ML VIAL.NEB. NEB PRN (13:49)
[2022-05-15] MEDS ORDERED: CEFTRIAXONE 1 GM in DEXTROSE 5%-WATER 100 ML IVPB ONE (14:08)
[2022-05-15] MEDS ORDERED: AZITHROMYCIN IVPB 500 MG/250 ML BAG IVPB ONE (14:10)
[2022-05-15] MEDS ORDERED: ASPIRIN 81 MG CHEWABLE TABLETS PO ONE (14:46)
[2022-05-15] MEDS ORDERED: FUROSEMIDE 40 MG/4 ML INJECTABLE VIAL IVPUSH ONE (14:56)
[2022-05-15] MEDS ORDERED: FUROSEMIDE 40 MG/4 ML INJECTABLE VIAL ONE (15:57)
[2022-05-15] MEDS ORDERED: ASPIRIN 81 MG CHEWABLE TABLETS ONE (16:08)
[2022-05-15 16:23] LABS: ARTERIAL BLD GAS O2 SATURATION 99.1 % (95-98); ARTERIAL BLOOD GAS BASE EXCESS 8.7 mmol/L (-2-2); ARTERIAL BLOOD GAS PO2 196.2 mmHg (80-100); ARTERIAL BLOOD GAS pH 7.276 (7.350-7.450)
[2022-05-15 16:32] LABS: ALLENS TEST POSITIVE
[2022-05-15 16:33] LABS: VENT MODE S/T; VENT RATE 20
[2022-05-15 16:33] LABS: URINE APPEARANCE CLEAR; URINE BILIRUBIN NEGATIVE (NEGATIVE); URINE COLOR DK YELLOW; URINE GLUCOSE (UA) 3+ (NEGATIVE); URINE KETONE NEGATIVE (NEGATIVE); URINE LEUK ESTERASE NEGATIVE (NEGATIVE); URINE NITRITE NEGATIVE (NEGATIVE); URINE PROTEIN TRACE (NEGATIVE)
[2022-05-15 17:15] VITALS: BMI 52.4
[2022-05-15 19:26] LABS: ARTERIAL BLD GAS O2 SATURATION 99.4 % (95-98); ARTERIAL BLOOD GAS BASE EXCESS 9.5 mmol/L (-2-2); ARTERIAL BLOOD GAS PO2 223.1 mmHg (80-100); ARTERIAL BLOOD GAS pH 7.365 (7.350-7.450)
[2022-05-15 19:28] LABS: ALLENS TEST POSITIVE
[2022-05-15 19:29] LABS: VENT RATE 18
[2022-05-15] MEDS: MUPIROCIN 2% TOPICAL OINTMENT FOR DECOLONIZATION NS SCH (21:49)
[2022-05-15] MEDS: methylPREDNISolone NA SUCC 40 MG/1 ML VIAL IVPUSH SCH (21:50)
[2022-05-15] MEDS: CHLORHEXIDINE GLUCONATE 4% CLEANSER FOR DECOLONIZATION TP SCH (21:50)
[2022-05-16 06:01] LABS: ARTERIAL BLD GAS O2 SATURATION 99.5 % (95-98); ARTERIAL BLOOD GAS PO2 281.1 mmHg (80-100); ARTERIAL BLOOD GAS pH 7.267 (7.350-7.450)
[2022-05-16 06:06] LABS: ALLENS TEST POSITIVE; VENT MODE S/T
[2022-05-16 06:07] LABS: VENT RATE 20
[2022-05-16] MEDS: methylPREDNISolone NA SUCC 40 MG/1 ML VIAL IVPUSH SCH ×3 (07:05→21:29)
[2022-05-16 07:34] LABS: BASO % 0.1 % (0-2.0); HEMATOCRIT 40.3 % (32.4-45.2); HEMOGLOBIN 12.5 GM/dL (10.7-15.3); LYMPH % 8.5 % (8-40); MCH 28.5 pg (25.7-33.7); MCHC 30.9 g/dl (32.0-36.0); MEAN CELL VOLUME 92.1 fl (80-96); MEAN PLT VOLUME 10.2 fl (7.5-11.1); MONO % 2.4 % (3.8-10.2); PLATELET COUNT 182 10^3/uL (134-434); RBC 4.37 M/mm3 (3.60-5.2); RDW 18.4 % (11.6-15.6); WHITE BLOOD COUNT 10.6 K/mm3 (4.0-10.0)
[2022-05-16 07:52] LABS: CALCIUM 9.1 mg/dL (8.5-10.1)
[2022-05-16 07:53] LABS: ALBUMIN 2.9 g/dl (3.4-5.0); BLOOD UREA NITROGEN 17.6 mg/dL (7-18); MAGNESIUM 2.4 mg/dL (1.8-2.4)
[2022-05-16 07:56] LABS: CREATININE 0.7 mg/dL (0.55-1.3); PHOSPHOROUS 3.8 mg/dL (2.5-4.9)
[2022-05-16 07:57] LABS: TOT PROT 6.1 g/dl (6.4-8.2)
[2022-05-16 07:58] LABS: BILIRUBIN,TOTAL 0.6 mg/dL (0.2-1)
[2022-05-16 08:01] LABS: N-TERMINAL BNP 313.7 pg/ml (5-125)
[2022-05-16] MEDS: MUPIROCIN 2% TOPICAL OINTMENT FOR DECOLONIZATION NS SCH ×3 (09:11→21:28)
[2022-05-16] MEDS ORDERED: INSULIN (LEVEMIR) 100 UNITS/ML UNITS SQ STA (11:21)
[2022-05-16] MEDS ORDERED: ALBUTEROL SO4 0.083% IH SOL 2.5 MG/3 ML VIAL.NEB. NEB STA ×2 (12:22)
[2022-05-16] MEDS: ALBUTEROL SO4 0.083% IH SOL 2.5 MG/3 ML VIAL.NEB. NEB SCH ×4 (15:05→23:04)
[2022-05-16] MEDS ORDERED: INSULIN SLIDING SCALE (NOVOLOG) 1 VIAL SQ SCH (16:30)
[2022-05-16] MEDS: INSULIN SLIDING SCALE (NOVOLOG) 1 VIAL SQ SCH ×2 (17:52→21:28)
[2022-05-16] MEDS: ALBUTEROL SO4 2.5/IPRATROPIUM 0.5 INH SOL 3 ML VIAL.NEB. NEB SCH (20:44)
[2022-05-16] MEDS: CHLORHEXIDINE GLUCONATE 4% CLEANSER FOR DECOLONIZATION TP SCH (21:28)
[2022-05-16] MEDS: INSULIN (LEVEMIR) 100 UNITS/ML UNITS SQ SCH (21:28)
[2022-05-17] MEDS: ALBUTEROL SO4 0.083% IH SOL 2.5 MG/3 ML VIAL.NEB. NEB SCH ×6 (03:14→23:50)
[2022-05-17] MEDS: methylPREDNISolone NA SUCC 40 MG/1 ML VIAL IVPUSH SCH ×3 (06:32→21:31)
[2022-05-17] MEDS: INSULIN SLIDING SCALE (NOVOLOG) 1 VIAL SQ SCH ×4 (06:32→21:37)
[2022-05-17] MEDS: MUPIROCIN 2% TOPICAL OINTMENT FOR DECOLONIZATION NS SCH ×2 (12:00→21:32)
[2022-05-17] MEDS ORDERED: LISINOPRIL 20 MG TABLET PO ONE (19:56)
[2022-05-17] MEDS ORDERED: amLODIPine BESYLATE 10 MG TABLET (FP) PO ONE (19:57)
[2022-05-17] MEDS ORDERED: BENZOCAINE/MENTH/CETYLPYRD CL 1 EACH LOZENGE MM PRN (20:51)
[2022-05-17] MEDS: CHLORHEXIDINE GLUCONATE 4% CLEANSER FOR DECOLONIZATION TP SCH (21:32)
[2022-05-17] MEDS: INSULIN (LEVEMIR) 100 UNITS/ML UNITS SQ SCH (21:38)
[2022-05-18] MEDS: ALBUTEROL SO4 0.083% IH SOL 2.5 MG/3 ML VIAL.NEB. NEB SCH ×2 (04:26→07:47)
[2022-05-18] MEDS: INSULIN SLIDING SCALE (NOVOLOG) 1 VIAL SQ SCH ×4 (06:29→21:24)
[2022-05-18 07:08] LABS: HEMATOCRIT 40.5 % (32.4-45.2); HEMOGLOBIN 12.4 GM/dL (10.7-15.3); MCH 28.1 pg (25.7-33.7); MCHC 30.7 g/dl (32.0-36.0); MEAN CELL VOLUME 91.5 fl (80-96); MEAN PLT VOLUME 10.1 fl (7.5-11.1); PLATELET COUNT 205 10^3/uL (134-434); RBC 4.42 M/mm3 (3.60-5.2); RDW 18.4 % (11.6-15.6); WHITE BLOOD COUNT 12.4 K/mm3 (4.0-10.0)
[2022-05-18 07:33] LABS: CALCIUM 9.8 mg/dL (8.5-10.1)
[2022-05-18 07:34] LABS: ALBUMIN 2.8 g/dl (3.4-5.0); BLOOD UREA NITROGEN 14.8 mg/dL (7-18); MAGNESIUM 2.3 mg/dL (1.8-2.4)
[2022-05-18 07:37] LABS: CREATININE 0.7 mg/dL (0.55-1.3)
[2022-05-18 07:38] LABS: TOT PROT 5.8 g/dl (6.4-8.2)
[2022-05-18 07:39] LABS: BILIRUBIN,TOTAL 0.5 mg/dL (0.2-1)
[2022-05-18] MEDS: methylPREDNISolone NA SUCC 40 MG/1 ML VIAL IVPUSH SCH ×2 (09:50→21:22)
[2022-05-18] MEDS: ASPIRIN 81 MG CHEWABLE TABLETS PO SCH (09:51)
[2022-05-18] MEDS: MUPIROCIN 2% TOPICAL OINTMENT FOR DECOLONIZATION NS SCH ×2 (10:05→21:38)
[2022-05-18] MEDS: LISINOPRIL 20 MG TABLET PO SCH (11:30)
[2022-05-18] MEDS: amLODIPine BESYLATE 10 MG TABLET (FP) PO SCH (11:30)
[2022-05-18] MEDS: ALBUTEROL SO4 2.5/IPRATROPIUM 0.5 INH SOL 3 ML VIAL.NEB. NEB SCH ×3 (11:49→20:03)
[2022-05-18] MEDS: GLIMEPIRIDE 4 MG TABLET PO SCH (16:48)
[2022-05-18] MEDS: INSULIN (LEVEMIR) 100 UNITS/ML UNITS SQ SCH (21:23)
[2022-05-18] MEDS: CHLORHEXIDINE GLUCONATE 4% CLEANSER FOR DECOLONIZATION TP SCH (21:24)
[2022-05-18] MEDS ORDERED: ROSUVASTATIN CA 5 MG TABLET PO SCH (22:00)
[2022-05-19] MEDS: GLIMEPIRIDE 4 MG TABLET PO SCH (06:24)
[2022-05-19] MEDS: INSULIN SLIDING SCALE (NOVOLOG) 1 VIAL SQ SCH ×2 (06:26→12:03)
[2022-05-19] MEDS ORDERED: INSULIN (LEVEMIR) 100 UNITS/ML UNITS SQ SCH (07:00)
[2022-05-19] MEDS: ALBUTEROL SO4 2.5/IPRATROPIUM 0.5 INH SOL 3 ML VIAL.NEB. NEB SCH ×3 (08:22→15:36)
[2022-05-19] MEDS: amLODIPine BESYLATE 10 MG TABLET (FP) PO SCH (09:24)
[2022-05-19] MEDS: ASPIRIN 81 MG CHEWABLE TABLETS PO SCH (09:24)
[2022-05-19] MEDS: LISINOPRIL 20 MG TABLET PO SCH (09:24)
[2022-05-19] MEDS ORDERED: predniSONE 10 MG TABLET (UD) PO SCH (10:00)
[2022-05-19 11:16] VITALS: BP 164/77; TEMP 98.7
[2022-05-19 12:19] VITALS: PULSE 83; RESP 18
== END 2022-05-19 15:30 | disposition home or self-care (01) | DRG 190 ==
LOC: JER 10:36 → JERBED 13:22 → JICU 16:56
PROVIDERS: ADMIT Family Medicine; ATTEND Family Medicine
PROC: 5A09457 Assistance with Respiratory Ventilation, 24-96 Consecutive Hours, Continuous Positive Airway Pressure (ICD-10-PCS; principal; 2022-05-15)
DX: J44.1 Chronic obstructive pulmonary disease with (acute) exacerbation (principal); J96.21 Acute and chronic respiratory failure with hypoxia; Z68.43 Body mass index [BMI] 50.0-59.9, adult; I10 Essential (primary) hypertension; E78.5 Hyperlipidemia, unspecified; E66.01 Morbid (severe) obesity due to excess calories; G47.33 Obstructive sleep apnea (adult) (pediatric); E11.42 Type 2 diabetes mellitus with diabetic polyneuropathy; E11.65 Type 2 diabetes mellitus with hyperglycemia
CPT/HCPCS: 0241U-QW; 36415; 36600; 71045-TC-FY; 80053; 81003; 82550; 82553; 82803; 82962; 83036; 83735; 83880; 84100; 84484; 85025; 85027; 87086; 93005; 93010; 94640; 94660; 97116-GP; 97162-GP; 99285-25

== ENCOUNTER 2022-07-09 15:59 | Inpatient (IN) | payer BC ==
[2022-07-09] MEDS ORDERED: ALBUTEROL SO4 2.5/IPRATROPIUM 0.5 INH SOL 3 ML VIAL.NEB. NEB ONE ×4 (16:21→16:23)
[2022-07-09] MEDS ORDERED: MAGNESIUM SULF 50% (8.12 MEQ/2 ML-1 GM VIAL) IVPB ONE (16:22)
[2022-07-09] MEDS ORDERED: methylPREDNISolone NA SUCC 125 MG/2 ML VIAL IVPB ONE (16:22)
[2022-07-09 17:20] LABS: BASO % 0.7 % (0-2.0); HEMATOCRIT 46.2 % (32.4-45.2); HEMOGLOBIN 14.8 GM/dL (10.7-15.3); LYMPH % 13.1 % (8-40); MCH 28.6 pg (25.7-33.7); MEAN CELL VOLUME 89.3 fl (80-96); MEAN PLT VOLUME 10.2 fl (7.5-11.1); NEUT % 81.2 % (42.8-82.8); PLATELET COUNT 193 10^3/uL (134-434); RBC 5.18 M/mm3 (3.60-5.2); RDW 16.9 % (11.6-15.6); VENOUS BASE EXCESS 5.2 mmol/L (-2-2); VENOUS O2 SATURATION 96.1 % (70-80); VENOUS PCO2 59.5 mmHg (38-52); VENOUS PH 7.358 (7.310-7.410); WHITE BLOOD COUNT 9.2 K/mm3 (4.0-10.0)
[2022-07-09 17:27] LABS: INR 1.07 (0.83-1.09); PROTHROMBIN TIME (PATIENT) 12.3 SEC (9.7-13.0)
[2022-07-09 17:30] LABS: ACTIVATED PTT 30.5 SECONDS (25.2-36.5)
[2022-07-09 17:40] LABS: CALCIUM 9.4 mg/dL (8.5-10.1)
[2022-07-09 17:41] LABS: ALBUMIN 3.3 g/dl (3.4-5.0); BLOOD UREA NITROGEN 8.6 mg/dL (7-18); MAGNESIUM 2.5 mg/dL (1.8-2.4)
[2022-07-09 17:44] LABS: CREATININE 0.7 mg/dL (0.55-1.3)
[2022-07-09] MEDS ORDERED: PIPERACILLIN/TAZOB 4.5 GM 4.5 GM in DEXTROSE 5%-WATER 100 ML IVPB ONE (17:44)
[2022-07-09] MEDS ORDERED: VANCOMYCIN 1 GM in D5W (PRE-DOCKED) 1,000 MG/250 ML IVPB ONE (17:44)
[2022-07-09 17:46] LABS: BILIRUBIN,TOTAL 0.7 mg/dL (0.2-1)
[2022-07-09 17:49] LABS: N-TERMINAL BNP 156.5 pg/ml (5-125)
[2022-07-09] MEDS ORDERED: MAGNESIUM 1GM/D5W - 1 GM/100 ML IVPB IVPB ONE (19:08)
[2022-07-09] MEDS ORDERED: methylPREDNISolone NA SUCC 125 MG/2 ML VIAL ONE (19:08)
[2022-07-09] MEDS ORDERED: VANCOMYCIN/WATER FOR INJ (PEG) 1,000 MG/200 ML BAG IVPB ONE (19:32)
[2022-07-09] MEDS ORDERED: PIPERACILLIN/TAZOB 4.5 GM 4.5 GM/100 ML BAG IVPB ONE (19:32)
[2022-07-09] MEDS ORDERED: DOCUSATE SODIUM 100 MG CAPSULE (FP) PO PRN (21:52)
[2022-07-09] MEDS ORDERED: ACETAMINOPHEN 1000 MG/100 ML BAG IVPB PRN (22:00)
[2022-07-09] MEDS: INSULIN SLIDING SCALE (NOVOLOG) 1 VIAL SQ SCH (22:32)
[2022-07-09 23:00] LABS: BLOOD UREA NITROGEN 11.8 mg/dL (7-18); CALCIUM 9.3 mg/dL (8.5-10.1)
[2022-07-09 23:01] LABS: MAGNESIUM 2.6 mg/dL (1.8-2.4)
[2022-07-09 23:03] LABS: CREATININE 1.1 mg/dL (0.55-1.3)
[2022-07-10] MEDS: methylPREDNISolone NA SUCC 40 MG/1 ML VIAL IVPUSH SCH ×3 (03:05→17:38)
[2022-07-10 04:29] VITALS: BMI 47.7
[2022-07-10] MEDS: INSULIN SLIDING SCALE (NOVOLOG) 1 VIAL SQ SCH ×4 (06:29→22:19)
[2022-07-10] MEDS: ENOXAPARIN NA (PORCINE) 40 MG/0.4 ML DISP.SYRIN SQ SCH (09:18)
[2022-07-10 09:53] LABS: BASO % 0.2 % (0-2.0); HEMATOCRIT 45.6 % (32.4-45.2); HEMOGLOBIN 14.7 GM/dL (10.7-15.3); LYMPH % 15.3 % (8-40); MCH 28.9 pg (25.7-33.7); MCHC 32.2 g/dl (32.0-36.0); MEAN CELL VOLUME 89.9 fl (80-96); MEAN PLT VOLUME 10.5 fl (7.5-11.1); MONO % 3.9 % (3.8-10.2); NEUT % 80.6 % (42.8-82.8); PLATELET COUNT 192 10^3/uL (134-434); RBC 5.07 M/mm3 (3.60-5.2); RDW 17.1 % (11.6-15.6); WHITE BLOOD COUNT 8.9 K/mm3 (4.0-10.0)
[2022-07-10] MEDS ORDERED: PIPERACILLIN/TAZOB 3.375 GM 3.375 GM in DEXTROSE 5%-WATER - 50 ML IVPB ONE (10:43)
[2022-07-10 11:11] LABS: CALCIUM 10.1 mg/dL (8.5-10.1)
[2022-07-10 11:12] LABS: BLOOD UREA NITROGEN 15.7 mg/dL (7-18)
[2022-07-10 11:15] LABS: CREATININE 0.8 mg/dL (0.55-1.3)
[2022-07-10] MEDS ORDERED: INSULIN (NOVOLOG) ASPART 100 UNITS/ML 10ML VIAL ONE ×3 (11:48→21:01)
[2022-07-10] MEDS: GABAPENTIN 100 MG CAPSULE PO SCH ×2 (13:43→22:18)
[2022-07-10] MEDS: amLODIPine BESYLATE 10 MG TABLET (FP) PO SCH (13:43)
[2022-07-10] MEDS: AZITHROMYCIN IVPB 500 MG/250 ML BAG IVPB SCH (15:57)
[2022-07-10] MEDS: guaiFENesin/CODEINE 5 ML UNIT-DOSE CUPS PO PRN (16:21)
[2022-07-10] MEDS: ALBUTEROL SO4 0.083% IH SOL 2.5 MG/3 ML VIAL.NEB. NEB PRN (21:50)
[2022-07-10] MEDS: ROSUVASTATIN CA 20 MG TABLET PO SCH (22:18)
[2022-07-10] MEDS: INSULIN (LEVEMIR) 100 UNITS/ML UNITS SQ SCH (22:19)
[2022-07-10] MEDS: ACETAMINOPHEN 325 MG TABLET (FP) PO PRN (22:23)
[2022-07-11] MEDS: methylPREDNISolone NA SUCC 40 MG/1 ML VIAL IVPUSH SCH ×3 (01:35→17:40)
[2022-07-11] MEDS: guaiFENesin/CODEINE 5 ML UNIT-DOSE CUPS PO PRN ×3 (02:03→13:21)
[2022-07-11 03:16] LABS: URINE APPEARANCE CLEAR; URINE BILIRUBIN NEGATIVE (NEGATIVE); URINE COLOR YELLOW; URINE GLUCOSE (UA) 3+ (NEGATIVE); URINE KETONE NEGATIVE (NEGATIVE); URINE LEUK ESTERASE NEGATIVE (NEGATIVE); URINE NITRITE NEGATIVE (NEGATIVE); URINE PROTEIN NEGATIVE (NEGATIVE); URINE UROBILINOGEN 0.2 mg/dL (0.2-1.0)
[2022-07-11] MEDS: INSULIN (LEVEMIR) 100 UNITS/ML UNITS SQ SCH ×2 (06:41→22:32)
[2022-07-11] MEDS: GABAPENTIN 100 MG CAPSULE PO SCH ×3 (06:41→22:16)
[2022-07-11] MEDS: INSULIN SLIDING SCALE (NOVOLOG) 1 VIAL SQ SCH ×4 (06:41→22:27)
[2022-07-11] MEDS: GLIMEPIRIDE 4 MG TABLET PO SCH (06:43)
[2022-07-11] MEDS: ENOXAPARIN NA (PORCINE) 40 MG/0.4 ML DISP.SYRIN SQ SCH (09:20)
[2022-07-11] MEDS: LISINOPRIL 20 MG TABLET PO SCH (09:20)
[2022-07-11] MEDS: amLODIPine BESYLATE 10 MG TABLET (FP) PO SCH (09:20)
[2022-07-11] MEDS: ASPIRIN COATED 81 MG TABLET.EC PO SCH (09:20)
[2022-07-11] MEDS: AZITHROMYCIN IVPB 500 MG/250 ML BAG IVPB SCH (09:21)
[2022-07-11] MEDS: ALBUTEROL SO4 0.083% IH SOL 2.5 MG/3 ML VIAL.NEB. NEB PRN (09:30)
[2022-07-11] MEDS ORDERED: INSULIN (NOVOLOG) ASPART 100 UNITS/ML 10ML VIAL ONE (11:14)
[2022-07-11] MEDS: ALBUTEROL SO4 2.5/IPRATROPIUM 0.5 INH SOL 3 ML VIAL.NEB. NEB SCH ×3 (12:26→20:44)
[2022-07-11] MEDS: ROSUVASTATIN CA 20 MG TABLET PO SCH (22:16)
[2022-07-12] MEDS: methylPREDNISolone NA SUCC 40 MG/1 ML VIAL IVPUSH SCH ×3 (03:06→17:54)
[2022-07-12] MEDS: GABAPENTIN 100 MG CAPSULE PO SCH ×3 (06:20→21:49)
[2022-07-12] MEDS: guaiFENesin/CODEINE 5 ML UNIT-DOSE CUPS PO PRN ×4 (06:20→21:49)
[2022-07-12] MEDS: GLIMEPIRIDE 4 MG TABLET PO SCH (06:27)
[2022-07-12] MEDS: INSULIN SLIDING SCALE (NOVOLOG) 1 VIAL SQ SCH ×4 (06:28→21:58)
[2022-07-12] MEDS: ALBUTEROL SO4 0.083% IH SOL 2.5 MG/3 ML VIAL.NEB. NEB PRN (06:49)
[2022-07-12] MEDS ORDERED: INSULIN (NOVOLOG) ASPART 100 UNITS/ML 10ML VIAL ONE ×2 (06:55→11:22)
[2022-07-12] MEDS: ALBUTEROL SO4 2.5/IPRATROPIUM 0.5 INH SOL 3 ML VIAL.NEB. NEB SCH ×4 (07:27→21:17)
[2022-07-12] MEDS: LISINOPRIL 20 MG TABLET PO SCH (10:24)
[2022-07-12] MEDS: ASPIRIN COATED 81 MG TABLET.EC PO SCH (10:24)
[2022-07-12] MEDS: amLODIPine BESYLATE 10 MG TABLET (FP) PO SCH (10:24)
[2022-07-12] MEDS: ENOXAPARIN NA (PORCINE) 40 MG/0.4 ML DISP.SYRIN SQ SCH (10:24)
[2022-07-12] MEDS: AZITHROMYCIN IVPB 500 MG/250 ML BAG IVPB SCH (10:24)
[2022-07-12] MEDS: INSULIN (LEVEMIR) 100 UNITS/ML UNITS SQ SCH ×2 (10:27→21:55)
[2022-07-12] MEDS: ACETAMINOPHEN 325 MG TABLET (FP) PO PRN (13:16)
[2022-07-12] MEDS: ROSUVASTATIN CA 20 MG TABLET PO SCH (21:49)
[2022-07-13] MEDS: methylPREDNISolone NA SUCC 40 MG/1 ML VIAL IVPUSH SCH (01:15)
[2022-07-13] MEDS: INSULIN SLIDING SCALE (NOVOLOG) 1 VIAL SQ SCH ×3 (06:25→17:01)
[2022-07-13] MEDS: GABAPENTIN 100 MG CAPSULE PO SCH ×2 (06:25→13:49)
[2022-07-13] MEDS: GLIMEPIRIDE 4 MG TABLET PO SCH (06:50)
[2022-07-13] MEDS: ALBUTEROL SO4 2.5/IPRATROPIUM 0.5 INH SOL 3 ML VIAL.NEB. NEB SCH ×2 (08:50→11:50)
[2022-07-13] MEDS: LISINOPRIL 20 MG TABLET PO SCH (09:24)
[2022-07-13] MEDS: ASPIRIN COATED 81 MG TABLET.EC PO SCH (09:24)
[2022-07-13] MEDS: amLODIPine BESYLATE 10 MG TABLET (FP) PO SCH (09:24)
[2022-07-13] MEDS: ENOXAPARIN NA (PORCINE) 40 MG/0.4 ML DISP.SYRIN SQ SCH (09:24)
[2022-07-13] MEDS: guaiFENesin/CODEINE 5 ML UNIT-DOSE CUPS PO PRN ×2 (09:30→17:32)
[2022-07-13] MEDS: INSULIN (LEVEMIR) 100 UNITS/ML UNITS SQ SCH (09:56)
[2022-07-13] MEDS ORDERED: predniSONE 20 MG TABLET (UD) PO SCH (10:00)
[2022-07-13 13:44] VITALS: BP 152/84; PULSE 94; RESP 18; TEMP 98.9
== END 2022-07-13 18:12 | disposition home or self-care (01) | DRG 189 ==
LOC: JER 15:59 → JERBED 16:46 → J6S 07-10 02:50
PROVIDERS: ADMIT Internal Medicine; ATTEND Family Medicine
DX: J96.21 Acute and chronic respiratory failure with hypoxia (principal); J12.1 Respiratory syncytial virus pneumonia; J44.0 Chronic obstructive pulmonary disease with (acute) lower respiratory infection; Z68.42 Body mass index [BMI] 45.0-49.9, adult; J44.1 Chronic obstructive pulmonary disease with (acute) exacerbation; J96.22 Acute and chronic respiratory failure with hypercapnia; I10 Essential (primary) hypertension; E66.01 Morbid (severe) obesity due to excess calories; G47.33 Obstructive sleep apnea (adult) (pediatric); E78.5 Hyperlipidemia, unspecified; E11.40 Type 2 diabetes mellitus with diabetic neuropathy, unspecified; Z99.81 Dependence on supplemental oxygen; I25.10 Atherosclerotic heart disease of native coronary artery without angina pectoris
CPT/HCPCS: 0241U-QW; 36415; 71045-TC-FY; 80048; 80053; 81003; 82570; 82803; 82962; 83605; 83735; 83880; 84156; 84484; 85025; 85610; 85730; 87040; 87070; 87077; 87205; 87899; 93005; 93010; 94640; 94660; 99285-25

== ENCOUNTER 2022-08-08 12:06 | Inpatient (IN) | payer BC ==
[2022-08-08] MEDS ORDERED: ACETAMINOPHEN 1000 MG/100 ML BAG IVPB ONE (12:59)
[2022-08-08] MEDS ORDERED: ALBUTEROL SO4 2.5/IPRATROPIUM 0.5 INH SOL 3 ML VIAL.NEB. NEB ONE ×2 (12:59→13:00)
[2022-08-08] MEDS ORDERED: ACETAMINOPHEN INJECTION 100 ML IVPB ONE (13:01)
[2022-08-08] MEDS ORDERED: cefTRIAXone SODIUM 1 GM VIAL ONE (13:27)
[2022-08-08] MEDS ORDERED: CEFTRIAXONE 1,000 MG in DEXTROSE 5%-WATER - 50 ML IVPB ONE (13:54)
[2022-08-08 15:22] LABS: VENOUS BASE EXCESS 4.9 mmol/L (-2-2); VENOUS O2 SATURATION 65.5 % (70-80); VENOUS PCO2 68.1 mmHg (38-52); VENOUS PH 7.314 (7.310-7.410)
[2022-08-08 15:23] LABS: BASO % 0.9 % (0-2.0); EOS % 0.3 % (0-4.5); HEMATOCRIT 46.1 % (32.4-45.2); HEMOGLOBIN 14.4 GM/dL (10.7-15.3); LYMPH % 19.3 % (8-40); MCH 28.3 pg (25.7-33.7); MCHC 31.4 g/dl (32.0-36.0); MEAN CELL VOLUME 90.4 fl (80-96); MEAN PLT VOLUME 10.8 fl (7.5-11.1); MONO % 17.9 % (3.8-10.2); NEUT % 61.6 % (42.8-82.8); PLATELET COUNT 213 10^3/uL (134-434); RDW 16.6 % (11.6-15.6); WHITE BLOOD COUNT 6.6 K/mm3 (4.0-10.0)
[2022-08-08 15:36] LABS: INR 1.15 (0.83-1.09); PROTHROMBIN TIME (PATIENT) 13.2 SEC (9.7-13.0)
[2022-08-08 15:39] LABS: ACTIVATED PTT 33.8 SECONDS (25.2-36.5)
[2022-08-08 15:50] LABS: ALBUMIN 3.3 g/dl (3.4-5.0); BLOOD UREA NITROGEN 9.1 mg/dL (7-18); CALCIUM 9.1 mg/dL (8.5-10.1); MAGNESIUM 2.1 mg/dL (1.8-2.4)
[2022-08-08 15:53] LABS: CREATININE 1.1 mg/dL (0.55-1.3)
[2022-08-08 15:55] LABS: BILIRUBIN,TOTAL 0.9 mg/dL (0.2-1); TOT PROT 6.9 g/dl (6.4-8.2)
[2022-08-08 15:58] LABS: N-TERMINAL BNP 369.8 pg/ml (5-125)
[2022-08-08 16:09] LABS: LACTIC ACID 2.5 mmol/L (0.4-2.0)
[2022-08-08] MEDS ORDERED: DEXAMETHASONE SOD PHOSPHATE 4 MG/1 ML VIAL IVPUSH ONE (16:15)
[2022-08-08] MEDS ORDERED: LACTATED RINGERS SOLUTION 1000 ML INFUS.BAG IV ONE ×2 (16:17→19:07)
[2022-08-08] MEDS ORDERED: DEXAMETHASONE SOD PHOSPHATE 10 MG/1 ML VIAL ONE (17:27)
[2022-08-08] MEDS ORDERED: ALBUTEROL SO4 0.083% IH SOL 2.5 MG/3 ML VIAL.NEB. NEB ONE ×2 (17:30→19:46)
[2022-08-08 19:05] LABS: LACTIC ACID 2.5 mmol/L (0.4-2.0)
[2022-08-08 23:41] LABS: LACTIC ACID 2.7 mmol/L (0.4-2.0)
[2022-08-09] MEDS ORDERED: ALBUTEROL SO4 HFA INHALER IH PRN (00:21)
[2022-08-09] MEDS ORDERED: OSELTAMIVIR PHOSPHATE 75 MG CAPSULE ONE ×2 (00:46→10:39)
[2022-08-09] MEDS ORDERED: OSELTAMIVIR PHOSPHATE 75 MG CAPSULE PO ONE (00:48)
[2022-08-09] MEDS ORDERED: guaiFENesin/CODEINE 5 ML UNIT-DOSE CUPS PO ONE ×2 (02:48→02:49)
[2022-08-09] MEDS ORDERED: methylPREDNISolone NA SUCC 40 MG/1 ML VIAL ONE ×3 (02:50→17:57)
[2022-08-09] MEDS ORDERED: PIPERACILLIN/TAZOB 4.5 GM 4.5 GM/100 ML BAG IVPB ONE ×2 (02:50→10:40)
[2022-08-09] MEDS: methylPREDNISolone NA SUCC 40 MG/1 ML VIAL IVPUSH SCH ×3 (03:01→18:30)
[2022-08-09] MEDS: PIPERACILLIN/TAZOB 4.5 GM 4.5 GM in DEXTROSE 5%-WATER 100 ML IVPB SCH ×2 (03:02→11:27)
[2022-08-09 07:33] LABS: BASO % 0.6 % (0-2.0); HEMATOCRIT 43.8 % (32.4-45.2); HEMOGLOBIN 13.8 GM/dL (10.7-15.3); LYMPH % 16.2 % (8-40); MCH 28.5 pg (25.7-33.7); MCHC 31.5 g/dl (32.0-36.0); MEAN CELL VOLUME 90.6 fl (80-96); MEAN PLT VOLUME 10.2 fl (7.5-11.1); MONO % 4.5 % (3.8-10.2); NEUT % 78.7 % (42.8-82.8); PLATELET COUNT 184 10^3/uL (134-434); RBC 4.83 M/mm3 (3.60-5.2); RDW 16.4 % (11.6-15.6); WHITE BLOOD COUNT 5.1 K/mm3 (4.0-10.0)
[2022-08-09 07:47] LABS: PH,URINE 5.5 (5.0-8.0); URINE APPEARANCE CLEAR; URINE BILIRUBIN NEGATIVE (NEGATIVE); URINE COLOR YELLOW; URINE GLUCOSE (UA) 3+ (NEGATIVE); URINE KETONE NEGATIVE (NEGATIVE); URINE LEUK ESTERASE NEGATIVE (NEGATIVE); URINE NITRITE NEGATIVE (NEGATIVE); URINE PROTEIN NEGATIVE (NEGATIVE); URINE UROBILINOGEN 0.2 mg/dL (0.2-1.0)
[2022-08-09 07:54] LABS: CALCIUM 9.2 mg/dL (8.5-10.1)
[2022-08-09 07:55] LABS: ALBUMIN 2.8 g/dl (3.4-5.0); BLOOD UREA NITROGEN 12.5 mg/dL (7-18)
[2022-08-09 07:58] LABS: CREATININE 0.8 mg/dL (0.55-1.3)
[2022-08-09 07:59] LABS: BILIRUBIN,TOTAL 1.2 mg/dL (0.2-1); TOT PROT 6.2 g/dl (6.4-8.2)
[2022-08-09] MEDS: INSULIN SLIDING SCALE (NOVOLOG) 1 VIAL SQ SCH ×4 (08:24→22:55)
[2022-08-09] MEDS ORDERED: PIPERACILLIN/TAZOB 4.5 GM 4.5 GM in DEXTROSE 5%-WATER 100 ML IVPB SCH (09:00)
[2022-08-09] MEDS ORDERED: guaiFENesin/D-METHORPHAN HB 10 ML UNIT-DOSE CUPS ONE (10:39)
[2022-08-09] MEDS: OSELTAMIVIR PHOSPHATE 75 MG CAPSULE PO SCH ×2 (10:50→22:54)
[2022-08-09] MEDS: HEPARIN NA (PORCINE) 5,000 UNITS/ML 1ML VIAL SQ SCH ×2 (10:50→22:54)
[2022-08-09] MEDS: guaiFENesin 200 MG/10 ML 10 ML UNIT-DOSE CUPS PO PRN ×2 (10:50→18:48)
[2022-08-09] MEDS: PIPERACILLIN/TAZOB 3.375 GM 3.375 GM in DEXTROSE 5%-WATER - 50 ML IVPB SCH ×2 (11:28→18:30)
[2022-08-09 11:46] LABS: ARTERIAL BLD GAS O2 SATURATION 96.6 % (95-98); ARTERIAL BLOOD GAS BASE EXCESS 7.2 mmol/L (-2-2); ARTERIAL BLOOD GAS PO2 91.3 mmHg (80-100); ARTERIAL BLOOD GAS pH 7.369 (7.350-7.450)
[2022-08-09 11:58] LABS: ALLENS TEST POSITIVE
[2022-08-09] MEDS ORDERED: LISINOPRIL 20 MG TABLET ONE (13:12)
[2022-08-09] MEDS ORDERED: amLODIPine BESYLATE 10 MG TABLET (FP) ONE (13:12)
[2022-08-09] MEDS: LACTATED RINGERS SOLUTION 1,000 ML/1,000 ML INFUS.BAG IV SCH (13:30)
[2022-08-09] MEDS: LISINOPRIL 20 MG TABLET PO SCH (13:30)
[2022-08-09] MEDS: amLODIPine BESYLATE 10 MG TABLET (FP) PO SCH (13:30)
[2022-08-09] MEDS ORDERED: guaiFENesin 200 MG/10 ML 10 ML UNIT-DOSE CUPS ONE (18:45)
[2022-08-09] MEDS: GLIMEPIRIDE 4 MG TABLET PO SCH (18:47)
[2022-08-09] MEDS: ALBUTEROL SO4 2.5/IPRATROPIUM 0.5 INH SOL 3 ML VIAL.NEB. NEB SCH (20:18)
[2022-08-09] MEDS: ROSUVASTATIN CA 5 MG TABLET PO SCH (22:55)
[2022-08-10] MEDS: guaiFENesin 200 MG/10 ML 10 ML UNIT-DOSE CUPS PO PRN ×3 (01:25→17:06)
[2022-08-10] MEDS: PIPERACILLIN/TAZOB 3.375 GM 3.375 GM in DEXTROSE 5%-WATER - 50 ML IVPB SCH ×3 (01:25→17:00)
[2022-08-10] MEDS: LACTATED RINGERS SOLUTION 1,000 ML/1,000 ML INFUS.BAG IV SCH (01:25)
[2022-08-10] MEDS: methylPREDNISolone NA SUCC 40 MG/1 ML VIAL IVPUSH SCH ×3 (01:41→17:00)
[2022-08-10] MEDS: GLIMEPIRIDE 4 MG TABLET PO SCH ×2 (06:39→16:59)
[2022-08-10] MEDS: INSULIN SLIDING SCALE (NOVOLOG) 1 VIAL SQ SCH ×4 (06:42→21:56)
[2022-08-10] MEDS: ACETAMINOPHEN 325 MG TABLET (FP) PO PRN ×2 (06:43→14:26)
[2022-08-10] MEDS: ALBUTEROL SO4 2.5/IPRATROPIUM 0.5 INH SOL 3 ML VIAL.NEB. NEB SCH ×4 (08:00→20:05)
[2022-08-10 08:02] VITALS: BMI 50.4
[2022-08-10] MEDS: amLODIPine BESYLATE 10 MG TABLET (FP) PO SCH (09:10)
[2022-08-10] MEDS: GABAPENTIN 100 MG CAPSULE PO SCH (09:10)
[2022-08-10] MEDS: LISINOPRIL 20 MG TABLET PO SCH (09:10)
[2022-08-10] MEDS: HEPARIN NA (PORCINE) 5,000 UNITS/ML 1ML VIAL SQ SCH ×2 (09:10→21:44)
[2022-08-10] MEDS: OSELTAMIVIR PHOSPHATE 75 MG CAPSULE PO SCH ×2 (09:10→21:44)
[2022-08-10] MEDS: ROSUVASTATIN CA 5 MG TABLET PO SCH (21:44)
[2022-08-11] MEDS: methylPREDNISolone NA SUCC 40 MG/1 ML VIAL IVPUSH SCH ×3 (01:56→18:19)
[2022-08-11] MEDS: guaiFENesin 200 MG/10 ML 10 ML UNIT-DOSE CUPS PO PRN ×4 (01:57→22:47)
[2022-08-11] MEDS: PIPERACILLIN/TAZOB 3.375 GM 3.375 GM in DEXTROSE 5%-WATER - 50 ML IVPB SCH (01:57)
[2022-08-11] MEDS: GLIMEPIRIDE 4 MG TABLET PO SCH ×2 (06:09→16:36)
[2022-08-11] MEDS: INSULIN SLIDING SCALE (NOVOLOG) 1 VIAL SQ SCH ×4 (06:09→22:41)
[2022-08-11] MEDS: ALBUTEROL SO4 2.5/IPRATROPIUM 0.5 INH SOL 3 ML VIAL.NEB. NEB SCH ×4 (07:40→20:49)
[2022-08-11] MEDS: HEPARIN NA (PORCINE) 5,000 UNITS/ML 1ML VIAL SQ SCH ×2 (09:28→22:41)
[2022-08-11] MEDS: OSELTAMIVIR PHOSPHATE 75 MG CAPSULE PO SCH ×2 (09:28→22:41)
[2022-08-11] MEDS: LISINOPRIL 20 MG TABLET PO SCH (09:29)
[2022-08-11] MEDS: GABAPENTIN 100 MG CAPSULE PO SCH (09:29)
[2022-08-11] MEDS: amLODIPine BESYLATE 10 MG TABLET (FP) PO SCH (09:29)
[2022-08-11 12:35] LABS: BLOOD UREA NITROGEN 14.2 mg/dL (7-18)
[2022-08-11 12:36] LABS: CREATININE 0.8 mg/dL (0.55-1.3)
[2022-08-11 12:38] LABS: CALCIUM 9.7 mg/dL (8.5-10.1)
[2022-08-11 12:41] LABS: TOT PROT 6.6 g/dl (6.4-8.2)
[2022-08-11 12:49] LABS: BILIRUBIN,TOTAL 0.5 mg/dL (0.2-1)
[2022-08-11 16:02] VITALS: RESP 18
[2022-08-11] MEDS: ROSUVASTATIN CA 5 MG TABLET PO SCH (22:40)
[2022-08-12] MEDS: methylPREDNISolone NA SUCC 40 MG/1 ML VIAL IVPUSH SCH ×2 (02:17→09:56)
[2022-08-12] MEDS: GLIMEPIRIDE 4 MG TABLET PO SCH ×2 (06:24→16:42)
[2022-08-12] MEDS: INSULIN SLIDING SCALE (NOVOLOG) 1 VIAL SQ SCH ×3 (06:26→17:25)
[2022-08-12] MEDS: ALBUTEROL SO4 2.5/IPRATROPIUM 0.5 INH SOL 3 ML VIAL.NEB. NEB SCH ×3 (07:50→15:50)
[2022-08-12] MEDS: LISINOPRIL 20 MG TABLET PO SCH (09:56)
[2022-08-12] MEDS: GABAPENTIN 100 MG CAPSULE PO SCH (09:56)
[2022-08-12] MEDS: amLODIPine BESYLATE 10 MG TABLET (FP) PO SCH (09:56)
[2022-08-12] MEDS: HEPARIN NA (PORCINE) 5,000 UNITS/ML 1ML VIAL SQ SCH (09:56)
[2022-08-12] MEDS: OSELTAMIVIR PHOSPHATE 75 MG CAPSULE PO SCH (09:57)
[2022-08-12] MEDS: guaiFENesin 200 MG/10 ML 10 ML UNIT-DOSE CUPS PO PRN (10:21)
[2022-08-12 11:51] VITALS: PULSE 91
[2022-08-12 14:53] VITALS: BP 136/85; TEMP 98.1
[2022-08-13] MEDS ORDERED: predniSONE 10 MG TABLET (UD) PO SCH (10:00)
== END 2022-08-12 17:27 | disposition home or self-care (01) | DRG 871 ==
LOC: JER 12:06 → JERBED 08-09 00:01 → J5S 08-09 21:18
PROVIDERS: ADMIT Internal Medicine; ATTEND Family Medicine
DX: A41.89 Other specified sepsis (principal); J18.9 Pneumonia, unspecified organism; J96.21 Acute and chronic respiratory failure with hypoxia; J96.22 Acute and chronic respiratory failure with hypercapnia; Z68.43 Body mass index [BMI] 50.0-59.9, adult; J44.1 Chronic obstructive pulmonary disease with (acute) exacerbation; J44.0 Chronic obstructive pulmonary disease with (acute) lower respiratory infection; E87.20 Acidosis, unspecified; I10 Essential (primary) hypertension; E78.5 Hyperlipidemia, unspecified; J44.9 Chronic obstructive pulmonary disease, unspecified; G47.33 Obstructive sleep apnea (adult) (pediatric); I25.10 Atherosclerotic heart disease of native coronary artery without angina pectoris; E66.01 Morbid (severe) obesity due to excess calories; J10.1 Influenza due to other identified influenza virus with other respiratory manifestations; E11.40 Type 2 diabetes mellitus with diabetic neuropathy, unspecified; R79.89 Other specified abnormal findings of blood chemistry; E87.5 Hyperkalemia
CPT/HCPCS: 0241U-QW; 36415; 36600; 71045-TC-FY; 80053; 81003; 82803; 82962; 83605; 83735; 83880; 84484; 85025; 85610; 85730; 86850; 86900; 86901; 87040; 87070; 87086; 87205; 87899; 93005; 93010; 93971-TC; 94150; 94640; 94660; 99285-25; J1644